=== PATIENT | female | born 1945 | race Caucasian/White ===

== ENCOUNTER 2021-05-06 07:24 | Outpatient (CLI) | payer MEDICARE, SELFPAY ==
--- NOTE | 2021-06-04 16:13 | WPDSLEEPSTUD ---
Sleep Study Date of Study: 05/06/21 Ordering Provider: Ambrocio Manning DO Interpreting Physician: Orly Amor MD Sleep Study Type: CPAP Titration Height: 1.57 m Weight: 120.656 kg Body Mass Index: 48.6 Neck Circumference (inches): 17 [place]: 5 Reason for Sleep Study * known FREIDA, has used CPAP without improvement; presents for re-titration * 03/28/2012; BMI was 39. Split night sleep study with severe obstructive sleep apnea with an apnea-hypopnea index 34.7, lowest saturation 82%, only 1 central apnea; optimal pressure was 9 cm. She had limb movement index of 95.6. Sleep History Vandana Ervin is a 75 year old female with a stroke in Oct 2010. Her urologist told her that sleep apnea was causing her urinary symptoms, and she needs re-evaluation. She had a split night study in 2011, and CPAP 9 cm was optimal. Apparently, she has used CPAP 9 cm since without feeling that the pressure is high enough. She wakes frequently at night, never feels rested on waking. She does not wake at night feeling short of breath, wake with heartburn symptoms such as belching or coughing. She denies snoring, and others do not tell her that she snores loudly. She frequently has trouble sleeping with a cold. She does not gasp for breath at night. She frequently sweats excessively at night. She does not have palpitations at night. She constantly falls asleep in the day, never involuntarily and never while driving. She does not have loss of muscle strength with strong emotion. She does not have daytime difficulty due to excessive sleepiness. She does not feel paralyzed on waking or falling asleep. She does not have vivid dreamlike scenes on waking or falling asleep. She is not afraid to go to sleep. She does not have nightmares. She does not remember her dreams. She occasionally has racing thoughts, feelings of depression, anxiety, and muscular tension.She does not notice parts of her body jerking. He does not kick at night or have achy and crawly feelings in her legs. She does not have leg pain at night, does not grind her teeth at night or wake with morning jaw pain. She occasionally is bothered by pain the day, never wakes due to pain at night. She occasionally wakes up feeling stiff in the morning with sore muscles, never wakes with spine pain. She has fatigue, depression, headaches, and takes antacids regularly. Normal bedtime is 10:00 p.m., falling asleep within 15 to 30 minutes, She wakes between 5 to 7 times during the night to urinate, and returns to sleep within if 5 minutes. 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 Wake up time is 11:00 a.m.. She takes naps in the afternoon or evening, but does not feel refreshed after a nap. She is drowsy for 3 hours after waking. Habits: Never smoker. Caffeine; 2 cups a day. No alcohol or recreational drugs. [facility] Past Medical History Medical History (Updated 06/04/21 @ 18:53 by Orly Amor MD) Anemia CVA (cerebrovascular accident) Depression Essential (primary) hypertension Hyperlipidemia Hypothyroidism FREIDA (obstructive sleep apnea) Seizures Type 2 diabetes mellitus without complications Family History Family History Father Acute myocardial infarction, Onset Age: 585 Patient's father is Mother Patient's mother is Grandparent Cerebrovascular accident Diabetes mellitus Sibling Patient's sister is in good health Patient's brother is in good health Patient's brother is Acute myocardial infarction Other Family history of cardiovascular disease Family history of congestive heart failure Hypertension Social History Social History Smoking status: Never smoker Second hand tobacco smoke exposure: Yes Alcohol intake: never Substance use: never
[2021-06-04 16:14] VITALS: BMI 48.6
== END 2021-05-07 07:01 | disposition home or self-care (01) ==
LOC: ANHCSM 07:24
PROVIDERS: PCP Internal Medicine; Visit Provider Internal Medicine
DX: G47.33 Obstructive sleep apnea (adult) (pediatric) (principal)
CPT/HCPCS: 95811

== ENCOUNTER 2021-05-18 09:54 | Outpatient (CLI) | payer MEDICARE, SELFPAY ==
--- NOTE | 2021-05-18 12:00 | NEURO_ITS ---
Impression: # Complains of increasing numbness and weakness in lower extremities. # Normal nerve conduction study with need for increasing strength for stimulation. # Needle/EMG exam revealed decreased motor unit potentials but no active denervation. # Clinical correlation recommended. Nerve Conduction Studies Anti Sensory Summary Table Stim Site NR Peak (ms) P-T Amp (?V) Site1 Site2 Delta-P (ms) Dist (cm) Matthew (m/s) Left Sup Fibular Anti Sensory (Ant Lat Mall) NO RESPONSE 14 cm NR 14 cm Ant Lat Mall 16.0 Right Sup Fibular Anti Sensory (Ant Lat Mall) 14 cm 3.3 31.4 14 cm Ant Lat Mall 3.3 16.0 48 Left Sural Anti Sensory (Lat Mall) Calf 4.4 1.2 Calf Lat Mall 4.4 16.0 36 Right Sural Anti Sensory (Lat Mall) Calf 3.5 4.1 Calf Lat Mall 3.5 16.0 46 Motor Summary Table Stim Site NR Onset (ms) O-P Amp (mV) Site1 Site2 Delta-0 (ms) Dist (cm) Matthew (m/s) Left Peroneal Motor (Vastus Med) Ankle 4.4 1.8 Popit Ankle 8.0 37.0 46 Popit 12.4 1.8 Right Peroneal Motor (Vastus Med) Ankle 4.5 1.3 Popit Ankle 7.8 37.0 47 Popit 12.3 1.4 Left Tibial Motor (Abd Moraes Brev) Ankle 4.2 2.5 Knee Ankle 9.5 40.0 42 Knee 13.7 1.3 Right Tibial Motor (Abd Moraes Brev) Ankle 4.4 5.2 Knee Ankle 8.9 40.0 45 Knee 13.3 3.4 F Wave Studies NR F-Lat (ms) L-R F-Lat (ms) Left Peroneal (Mrkrs) (EDB) 49.77 1.86 Right Peroneal (Mrkrs) (EDB) 51.63 1.86 Left Tibial (Mrkrs) (Abd Hallucis) 49.94 2.22 Right Tibial (Mrkrs) (Abd Hallucis) 52.16 2.22 EMG Side Muscle Nerve Root Ins Act Fibs Amp Dur Recrt Comment Right AntTibialis Dp Br Fibular L4-5 Nml Nml Nml Nml Reduced Right Gastroc Tibial S1-2 Nml Nml Nml Nml Reduced Right Fibularis Long Sup Br Fibular L5-S1 Nml Nml Nml Nml Reduced Right Flex Dig Long Tibial L5-S2 Nml Nml Nml Nml Reduced Right Ext Dig Brev Dp Br Fibular L5, S1 Nml Nml Nml Nml Reduced Left AntTibialis Dp Br Fibular L4-5 Nml Nml Nml Nml Reduced Left Gastroc Tibial S1-2 Nml Nml Nml Nml Reduced Left Fibularis Long Sup Br Fibular L5-S1 Nml Nml Nml Nml Reduced Left Flex Dig Long Tibial L5-S2 Nml Nml Nml Nml Reduced Left Ext Dig Brev Dp Br Fibular L5, S1 Nml Nml Nml Nml Reduced MTDD
== END 2021-05-18 09:55 | disposition home or self-care (01) ==
LOC: ANHNEURO 09:56
PROVIDERS: PCP Internal Medicine; Visit Provider Internal Medicine
DX: R20.0 Anesthesia of skin (principal); R20.2 Paresthesia of skin; M79.671 Pain in right foot; M79.672 Pain in left foot
CPT/HCPCS: 95886; 95910; 95911

== ENCOUNTER 2024-09-03 06:58 | Observation (INO) | payer MEDICARE, SELFPAY ==
[2024-09-03] VITALS (24 sets, daily range): BP systolic 131–174; BP diastolic 52–88; PULSE 62–86; RESP 16–25; TEMP 36.6–36.9; O2SAT 90–99; BMI 43.4
--- NOTE | ~2024-09-03 | XR_ITS ---
Portable chest x-ray Comparison: 07/16/2013 Clinical History: Shortness of breath Findings: Possible minimal bibasilar pulmonary edema. Cardiomediastinal silhouette is stable. Bones and soft tissues are unremarkable. Impression: Possible minimal bibasilar pulmonary edema. Reviewed, dictated and finalized at [facility]. 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
--- NOTE | ~2024-09-03 | CT_ITS ---
CT head without contrast Indication: Status post fall Technique: Serial scans were obtained through the brain without the administration of contrast. Dose reduction technique was used on this scan by utilizing automated exposure control and iterative recon struction technique. The dose-length product (DLP) was 605.33 mGy-cm. Findings: There is no evidence of intracranial hemorrhage, mass lesion, or acute infarct. Extensive c hronic right frontal lobe encephalomalacia present, with ex vacuo dilatation of the frontal horn righ t lateral ventricle. The ventricles and subarachnoid spaces are dilated, consistent with mild to mode rate atrophy. Low attenuation regions are seen within the periventricular white matter bilaterally, likely representing changes from chronic microvascular ischemic disease. There is no evidence of linda a, mass effect or midline shift. The visualized paranasal sinuses and mastoid air cells are clear. Right frontal craniotomy noted. Impression: No intracranial hemorrhage, mass, or acute infarct. Extensive chronic right frontal lobe encephalomalacia. Atrophy and chronic white matter changes, as above. Reviewed, dictated and finalized at location . ERVATION AGENT Impression: No intracranial hemorrhage, mass, or acute infarct. Extensive chronic right frontal lobe encephalomalacia. Atrophy and chronic white matter changes, as above.
--- NOTE | ~2024-09-03 | CT_ITS ---
Noncontrast CT scan of the cervical spine Technique: Multiple contiguous axial [address] images of the cervical spine were obtained and rec onstructed in 2D sagittal and coronal planes on the acquisition scanner. Dose reduction technique was used on this scan by utilizing automated exposure control, adjustment of the mA and/or kV according to patient size. The dose-length product (DLP) was 503.10 mGy-cm. Clinical History: Pain Findings: No fractures or dislocations. There is mild reversal of the normal cervical lordosis. Ther e is severe degenerative disc narrowing at C4-C5, C5-C6 and C6-C7. There is extensive, severe facet a rthropathy. There are probable fusion of the right C3-C4 facet joint. There is probable left neural f oraminal narrowing at C4-C5. There is advanced bilateral neural foraminal narrowing at C5-C6. There i s moderate canal stenosis at this level with disc osteophyte complex. There is advanced bilateral suleman ral foraminal narrowing at C6-C7, moderate to severe canal stenosis and associated disc osteophyte co mplex. No prevertebral soft tissue swelling. Impression: No fracture or subluxation of the cervical spine. Severe degenerative spondylosis at C5-C6 and C6-C7, moderate to severe canal stenosis and severe bila teral neural foraminal narrowing at these levels. Additional degenerative changes, as above. Reviewed, dictated and finalized at [facility]. 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 Severe degenerative spondylosis at C5-C6 and C6-C7, moderate to severe canal st enosis and severe bilateral neural foraminal narrowing at these levels. Additional degenerative changes, as above.
--- NOTE | 2024-09-03 07:29 | ECG_ITS ---
Test Date: 2024-09-03 08:02:44 Measurements Intervals [place] Rate: 66 P: -80 DE: 130 QRS: -2 QRSD: 101 T: 104 QT: 392 QTc: 413 Interpretive Statements SINUS RHYTHM WITH OCCASIONAL SUPRAVENTRICULAR PREMATURE COMPLEXES NONSPECIFIC ST & T-WAVE ABNORMALITY No previous ECG available for comparison Electronically Signed On 09-03-2024 14:40:53 TRANSFER STATION ATTENDANT by Koki Slater M.D.
[2024-09-03 08:30] LABS: Basophils Percent Auto 0.3 % (0.2-1.2); Eosinophils Absolute Auto 0.2 K/mm3 (0-0.3); Eosinophils Percent Auto 1.9 % (0-4.4); Hematocrit 31.1 % (37.0-47.0); Hemoglobin 9.7 g/dL (12.0-15.0); Immature Granulocyte Absolute 0.06 K/mm3 (0.00-0.031); Immature Granulocyte Percent A 0.6 % (0-0.5); Lymphocytes Absolute Auto 1.07 K/mm3 (0.9-3.2); Lymphocytes Percent Auto 11.3 % (18.3-44.2); Mean Corpuscular HGB Conc 31.2 g/dl (32-36); Mean Corpuscular Hemoglobin 31.1 pg (26-34); Mean Corpuscular Volume 99.7 fl (80-100); Mean Platelet Volume 10.8 fl (7.4-10.4); Monocytes Absolute Auto 0.6 K/mm3 (0.1-0.6); Monocytes Percent Auto 6.4 % (2.6-8.5); Neutrophils Absolute Auto 7.5 K/mm3 (1.3-6.7); Neutrophils Percent Auto 79.5 % (45.5-73.1); Platelet Count Result 269 k/mm3 (150-375); Red Blood Count 3.12 M/mm3 (4.2-5.4); Red Cell Distribution Width 14.5 % (11.5-14.5); White Blood Count 9.5 K/mm3 (4.5-10.0)
[2024-09-03 08:37] LABS: Add Urine Microscopic? YES; Appearance Urine Clear (Clear); Bacteria Urine 4+ /hpf; Bilirubin Urine Negative (Negative); Blood Urine Negative (Negative); Color Urine Yellow (Yellow); Glucose Urine UA Negative (Negative); Ketones Urine Negative (Negative); Leukocyte Esterase Ur Trace LEU/UL (Negative); Nitrate Urine Negative (Negative); Non Pathogenic Casts 0-2; Protein Urine Negative (Negative); RBC Urine 0-2 /hpf (0-2); Specific Grav Ur 1.021 (1.001-1.035); Squamous Epithelial Cell Urine None Seen /hpf (Few); Urobilinogen Urine 0.2 mg/dL (<2.0); WBC Urine 0-5 /hpf (0-3)
[2024-09-03 08:40] LABS: Lactic Acid Reflex 1.5 mmol/L (0.7-2.0)
[2024-09-03 08:41] LABS: Alanine Aminotransferase 10 U/L (6-35); Albumin Level 4.1 g/dL (3.5-5.1); Alkaline Phosphatase 82 U/L (38-126); Anion Gap 9 mmol/L (4-12); Aspartate Amino Transferase 18 U/L (14-36); Bilirubin,Total 0.4 mg/dL (0.2-1.3); Blood Urea Nitrogen 26 mg/dL (7-17); Calcium 9.2 mg/dL (8.4-10.2); Carbon Dioxide 22 mmol/L (22-30); Chloride 109 mmol/L (98-107); Estimated CRCL calculation 55 ml/min; Estimated Glomerular Filt Rate 60; Glucose 157 mg/dL (65-110); Potassium 4.5 mmol/L (3.4-5.0); Sodium 140 mmol/L (137-145)
[2024-09-03 08:45] LABS: Prothrombin Time 13.3 Seconds (11.1-14.7)
[2024-09-03 08:53] LABS: NT Pro B Type Natriuretic Pept 1120 pg/mL (19.9-100); Troponin I < 0.012 ng/mL (0.000-0.034)
--- NOTE | 2024-09-03 09:14 | ED_ITS ---
HPI - Weakness General Chief complaint: Weakness Stated complaint: lower ext weakness Time Seen by Provider: 09/03/24 07:05 Source: patient and family Mode of arrival: EMS Limitations: no limitations History of Present Illness HPI Narrative: 79-year-old with a history of hypertension hyperlipidemia, diabetes, arthritis, CVA was brought in from home with the complaints of multiple falls since yesterday. states that she is unable to bear weight on her lower extremities. She fell last night and was unable to get up or with the help she was able to get to her bed. No LOC. She denies any chest pain or shortness of breath. 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 Has multiple devices but now unable to to take care of her. Wants her to be placed in a rehab center. Complaint: difficulty walking Onset (ago): day(s) (1) Duration: constant Severity: moderate Associated symptoms: denies other symptoms Related Data Home Medications ?Medication ?Instructions ?Recorded ?Confirmed ?Last Taken ?Type fexofenadine 180 mg tablet 180 mg PO DAILY 10/07/19 09/03/24 Unknown History (Yuly Allergy) levetiracetam 500 mg tablet 500 mg PO Q12H 10/07/19 09/03/24 Unknown History mecobalamin (vitamin B12) 5,000 5,000 mcg PO 2XW 10/07/19 09/03/24 Unknown History mcg disintegrating tablet thiamine HCl (vitamin B1) 100 mg 100 mg PO DAILY 10/07/19 09/03/24 Unknown History tablet sitagliptin phosphate 100 mg 100 mg PO DAILY 10/08/19 09/03/24 Unknown History tablet (Januvia) exenatide microspheres 2 mg/0.85 2 mg subcut WEEKLY 04/02/20 09/03/24 Unknown History mL subcutaneous auto-injector (BydureND Acquisitionsse) bupropion HCl 75 mg tablet 75 mg PO BID 04/13/21 09/03/24 Unknown History sertraline 100 mg tablet 150 mg PO DAILY 09/03/24 09/03/24 Unknown History trospium 20 mg tablet 20 mg PO BID 09/03/24 09/03/24 Unknown History Allergies Allergy/AdvReac Type Severity Reaction Status Date / Time iodine Allergy Mild Dizziness Verified 09/03/24 07:10 shellfish derived Allergy Mild dizziness Verified 09/03/24 07:10 and weakness hydromorphone (From Dilaudid) Allergy Unknown Headache Verified 09/03/24 07:10 latex Allergy Unknown Rash Verified 09/03/24 07:10 Review of Systems 2 Constitutional: Constitutional: Reports no additional constitutional complaints Eyes: Eyes: Reports no additional eye complaints ENT: Reports system reviewed and no additional complaints, except as documented Cardiovascular: Cardiovascular: Reports no additional cardiovascular complaints Respiratory: Respiratory: Reports no additional respiratory complaints Gastrointestinal: Gastrointestinal: Reports no additional gastrointestinal complaints Musculoskeletal: Musculoskeletal: Reports as per HPI Neurologic: Reports system reviewed and no additional complaints, except as documented [facility] Past Medical History Medical History Arthritis CVA (cerebrovascular accident) 2010 Depression Essential (primary) hypertension History of blood transfusion 2010, x2 Hyperlipidemia Hypothyroidism FREIDA (obstructive sleep apnea) Seizures one since she had stroke Type 2 diabetes mellitus without complications Vaginal delivery x3 Surgical History Surgical History History of bladder surgery 1986 History of brain surgery 2010, x2 History of hysterectomy Family History Family History Father Acute myocardial infarction, Onset Age: 585 Patient's father is Hypertension Heart disease Mother Patient's mother is Hypertension Heart disease Grandparent Cerebrovascular accident Diabetes mellitus Sibling Patient's brother is in good health Patient's brother is Acute myocardial infarction Patient's sister is in good health Heart disease Other Family history of cardiovascular disease Family history of congestive heart failure Social History Social History Smoking status: Never smoker Second hand tobacco smoke exposure: Yes Alcohol intake: never Substance use: never Lack of Transportation: No Lack of Food: Never True Current Housing: I Have Housing Concerned About Future Housing: No Difficulty Paying Gas/Electric Bills: No Difficulty Paying for Meds: No Currently Unemployed: No Education: Bachelor's Degree Difficulty w/ Childcare or Family Care: No Agree to blood products: Yes Exam 2 Narrative: GENERAL: Well-appearing, Obese , and in no acute distress. HEAD: Normocephalic, atraumatic. EYES: PERRLA and EOMI. ENT: Nares clear, no rhinorrhea or epistaxis. Mucous membranes moist. NECK: Supple. CHEST: Clear to auscultation. No respiratory distress. HEART: Regular rate and rhythm. No murmur heard. Normal peripheral pulses. ABDOMEN: Soft, nontender, nondistended, normal active bowel sounds. EXTREMITIES: Normal range of motion. No edema. SKIN: Warm, dry, no rash. NEURO: No focal deficits. Alert and oriented x3. PSYCH: Normal mood and affect. Course Course Emergency Course: Patient resting on the bed in no discomfort. Informed about her lab work, CT findings. Consulted case management regarding her placement to a rehab center. Vital Signs Vital signs: Vital Signs Temperature 36.6 C 09/03/24 06:59 Pulse Rate 65 09/03/24 06:59 Respiratory Rate 23 H 09/03/24 06:59 Blood Pressure 163/60 H 09/03/24 06:59 Pulse Oximetry 91 09/03/24 06:59 Oxygen Delivery Room Air 09/03/24 06:59 Temperature 36.6 C 09/03/24 06:59 Pulse Rate 78 09/03/24 08:29 Respiratory Rate 23 H 09/03/24 06:59 Blood Pressure 163/60 H 09/03/24 06:59 Pulse Oximetry 91 09/03/24 06:59 Oxygen Delivery Room Air 09/03/24 06:59 MDM - Weakness Differential Diagnosis Differential diagnosis: Likely dehydration and other (Diabetic neuropathy, physical deconditioning) Medical Records Attestation: I reviewed the patient's medical records. Lab Data Attestation: I reviewed the patient's lab results. 09/03/24 08:20 09/03/24 08:20 Labs: Lab Results 09/03/24 Range/Units 08:20 WBC 9.5 (4.5-10.0) K/mm3 RBC 3.12 L (4.2-5.4) M/mm3 Hgb 9.7 L (12.0-15.0) g/dL Hct 31.1 L (37.0-47.0) % MCV 99.7 (80-100) fl MCH 31.1 (26-34) pg MCHC 31.2 L (32-36) g/dl RDW 14.5 (11.5-14.5) % Plt Count 269 (150-375) k/mm3 MPV 10.8 H (7.4-10.4) fl Immature Gran % (Auto) 0.6 H (0-0.5) % Neut % (Auto) 79.5 H (45.5-73.1) % Lymph % (Auto) 11.3 L (18.3-44.2) % Mower % (Auto) 6.4 (2.6-8.5) % Eos % (Auto) 1.9 (0-4.4) % Baso % (Auto) 0.3 (0.2-1.2) % Lymph # (Auto) 1.07 (0.9-3.2) K/mm3 Mower # (Auto) 0.6 (0.1-0.6) K/mm3 Eos # (Auto) 0.2 (0-0.3) K/mm3 Baso # (Auto) 0.0 (0.0-0.1) K/mm3 Abs Immat Gran (auto) 0.06 H (0.00-0.031) K/mm3 Absolute Neuts (auto) 7.5 H (1.3-6.7) K/mm3 Absolute Nucleated RBC 0.000 (0.0-0.012) K/mm3 Nucleated RBC % 0.0 (0.0-0.2) % PT 13.3 (11.1-14.7) Seconds INR 1.0 Sodium 140 (137-145) mmol/L Potassium 4.5 (3.4-5.0) mmol/L Chloride 109 H (98-107) mmol/L Carbon Dioxide 22 (22-30) mmol/L Anion Gap 9 (4-12) mmol/L BUN 26 H (7-17) mg/dL Creatinine 0.90 (0.7-1.0) mg/dL Estim Creat Clear Calc 55 ml/min Estimated GFR 60 (59 - ) Glucose 157 H (65-110) mg/dL Lactic Acid 1.5 (0.7-2.0) mmol/L Calcium 9.2 (8.4-10.2) mg/dL Total Bilirubin 0.4 (0.2-1.3) mg/dL AST 18 (14-36) U/L ALT 10 (6-35) U/L Alkaline Phosphatase 82 (38-126) U/L Troponin I < 0.012 (0.000-0.034) ng/mL NT-Pro-B Natriuret Pep 1120 H (19.9-100) pg/mL Total Protein 7.0 (6.3-8.2) g/dL Albumin 4.1 (3.5-5.1) g/dL Urine Color Yellow (Yellow) Urine Appearance Clear (Clear) Urine pH 5.0 (5.0-9.0) Ur Specific [place] 1.021 (1.001-1.035) Urine Protein Negative (Negative) mg/dL Urine Glucose (UA) Negative (Negative) mg/dL Urine Ketones Negative (Negative) mg/dL Ur Blood (Man) Negative (Negative) Urine Nitrate Negative (Negative) Urine Bilirubin Negative (Negative) Urine Urobilinogen 0.2 (<2.0) mg/dL Leukocyte Esterase Rfl Trace H (Negative) MIRANDA/UL Urine RBC 0-2 (0-2) /hpf Urine WBC 0-5 (0-3) /hpf Ur Squamous Epith Cells None seen (Few) /hpf Urine Bacteria 4+ H /hpf Urine Casts 0-2 Imaging Data Radiologist's impression: ITS Impressions Cervical Spine CT 09/03/24 07:55 Impression: No fracture or subluxation of the cervical spine. Severe degenerative spondylosis at C5-C6 and C6-C7, moderate to severe canal stenosis and severe bilateral neural foraminal narrowing at these levels. Additional degenerative changes, as above. Head CT 09/03/24 07:57 Impression: No intracranial hemorrhage, mass, or acute infarct. Extensive chronic right frontal lobe encephalomalacia. Atrophy and chronic white matter changes, as above. Chest X-Ray 09/03/24 07:58 Impression: Possible minimal bibasilar pulmonary edema. ECG Data EKG #1: ECG completion date: 09/03/24 ECG completion time: 08:02 EKG Interpretation: normal rate (66), sinus rhythm, normal QRS, normal QT and NL axis Discharge Plan Discharge Clinical Impression: Lower extremity weakness, Frequent falls Condition: Stable Patient Language: Luxembourgish Prescriptions: No Action thiamine HCl (vitamin B1) 100 mg tablet 100 mg PO DAILY levetiracetam 500 mg tablet 500 mg PO Q12H fexofenadine [Yuly Allergy] 180 mg tablet 180 mg PO DAILY mecobalamin (vitamin B12) 5,000 mcg tablet,disintegrating 5,000 mcg PO 2XW Januvia 100 mg tablet 100 mg PO DAILY Bydureon BCise 2 mg/0.85 mL auto-injector 2 mg SUB-Q WEEKLY bupropion HCl 75 mg tablet 75 mg PO BID sertraline 100 mg tablet 150 mg PO DAILY trospium 20 mg tablet 20 mg PO BID pravastatin 10 mg tablet 10 mg PO DAILY Qty: 90 3RF ferrous sulfate 325 mg (65 mg iron) tablet 325 mg PO BID Qty: 180 1RF gemfibrozil 600 mg tablet 600 mg PO BID Qty: 180 3RF levothyroxine 137 mcg tablet 137 mcg PO DAILY Qty: 90 3RF metoprolol tartrate 50 mg tablet 50 mg PO Q12H Qty: 180 3RF omeprazole 20 mg capsule,delayed release(DR/EC) 20 mg PO DAILY Qty: 90 3RF olmesartan 40 mg tablet 40 mg PO DAILY Qty: 90 3RF metformin 500 mg tablet 500 mg PO BID Qty: 180 3RF folic acid 1 mg tablet 1 mg PO DAILY Qty: 90 3RF ergocalciferol (vitamin D2) 1,250 mcg (50,000 unit) capsule 50,000 unit PO .every two weeks Qty: 6 2RF Follow-up/Referrals: Preston Goetz DO [Primary Care Provider] -
--- NOTE | 2024-09-03 09:50 | PCCCNOTE ---
Called to the ED for placement. Pt is having multiple falls and is unable to care for her. They wanted TONIA, however there is no medical need. Referrals sent to [facility], [facility], and [facility]. Awaiting for responses.
--- NOTE | 2024-09-03 11:48 | PCCCNOTE ---
[facility] does not have any beds, I left a message with Arslan at [place], awaiting return call, and Rand at [facility] is waiting for the PT/OT eval to be done, will not have a bed until Sunday the . Pt and family updated.
[2024-09-03] MEDS: LEVOTHYROXINE SODIUM 112 MCG, LEVOTHYROXINE SODIUM 25 MCG 137 MCG PO (14:38)
[2024-09-03] MEDS: levETIRAcetam 500 MG TABLET PO (14:38)
[2024-09-03] MEDS: SITagliptin PHOSPHATE 100 MG TABLET PO (14:38)
[2024-09-03] MEDS: PRAVASTATIN SODIUM 20 MG TABLET 40 MG PO (14:38)
[2024-09-03] MEDS: OLMESARTAN MEDOXOMIL 20 MG TABLET 40 MG PO (14:39)
[2024-09-03] MEDS: buPROPion HCL SR (12 HR) 150 MG TAB PO (14:39)
[2024-09-03] MEDS: METOPROLOL TARTRATE 50 MG TAB PO (14:39)
[2024-09-03] MEDS: metFORMIN HCL 500 MG TABLET PO (14:39)
--- NOTE | 2024-09-03 16:49 | PCCCNOTE ---
Received a call back from Dani from [facility], they have no beds. Rand, from [facility] called back and said that weakness was not a skillable diagnosis. Pt will be admitted for placement.
--- NOTE | 2024-09-03 17:31 | PCCCNOTE ---
PASRR completed, No level ll required.
--- NOTE | 2024-09-03 17:54 | PC.NURSE ---
Pt offered lunch and dinner and declined both
--- NOTE | 2024-09-03 18:32 | ADMGEN ---
This patient, Vandana Ervin, was admitted to Medical Room 341-01. Patient/family oriented to hospital policies and general routines including ID bracelet, bed and alarms, visiting hours, pain management, procedures, bathroom and other care routines, personal items, smoking policy, room service/diet, and visiting hours. Information on how to activate the Rapid Response Team has been discussed. Patient/Family are encouraged to report perceived risks to care and to ask questions if they do not understand what they are told or what they should do.
[2024-09-03 21:13] LABS: Glucose Point of Care 157 mg/dl (65-105)
--- NOTE | 2024-09-04 | ECHO_ITS ---
Patient Info Name: Vandana Ervin Age: 79 years : 1945 Gender: Female Ht: 63 in Wt: 245 lbs BSA: 2.29 m2 HR: 82 bpm BP: 168 / 73 mmHg Heart Rhythm: Sinus Rhythm Technical Quality: Fair Exam Date: 09/04/2024 2:18 PM Exam Location: Echo Lab Patient Status: Inpatient Admit Date: 09/03/2024 Staff Ordering Physician: Cayla Yarbrough APRN Elevator Mechanic: Luis Weber RDCS Attending Provider: Cayla Yarbrough APRN Referring Physician: Zenon LEON; Exam Type: CA echo doppler color flow Study Info Indications R06.02 - Shortness of breath J81.1 - Chronic pulmonary edema Complete two-dimensional, color flow and Doppler transthoracic echocardiogram is performed. Summary 1. Complete two-dimensional, color flow and Doppler transthoracic echocardiogram is performed. 2. Left ventricular chamber dimension is normal. 3. Left ventricular systolic function is normal, estimated at 65-70%. 4. There is mildly increased left ventricular wall thickness. 5. The left ventricular diastolic function is grade I diastolic dysfunction. 6. Left atrial chamber dimension is moderately enlarged. 7. There is mild aortic valve calcification. 8. There is mild aortic valve regurgitation. 9. There is mild mitral valve regurgitation. 10. There is mild tricuspid valve regurgitation. 11. There is mild pulmonic regurgitation. Left Ventricle Left ventricular chamber dimension is normal. Left ventricular systolic function is normal, estimated at 65-70%. There is mildly increased left ventricular wall thickness. The left ventricular diastolic function is grade I diastolic dysfunction. Right Ventricle Right ventricular chamber dimension is normal. Right ventricular systolic function is normal. Left Atria Left atrial chamber dimension is moderately enlarged. Right Atria Right atrial chamber dimension is normal. Atrial Septum Intact interatrial septum visualized by color flow imaging. Aortic Valve The aortic valve is trileaflet. There is mild aortic valve sclerosis. There is no aortic valve stenosis. There is mild aortic valve regurgitation. There is mild aortic valve calcification. Pulmonic Valve The pulmonic valve is normal. There is no pulmonic valve stenosis. There is mild pulmonic regurgitation. Mitral Valve The mitral valve has calcified annulus. There is no mitral valve stenosis. There is mild mitral valve regurgitation. Tricuspid Valve The tricuspid valve leaflets are normal. There is no significant tricuspid valve stenosis. There is mild tricuspid valve regurgitation. No pulmonary hypertension, estimated pulmonary arterial systolic pressure is 28 mmHg. Pericardium/Pleural The pericardium appears normal. There is no pericardial effusion. Inferior Vena Cava Normal inferior vena cava with >50% collapse upon inspiration consistent with normal right atrial pressure, 5 mmHg. Aorta The aortic root size at the sinus of Valsalva is normal. Left Ventricular Outflow Tract Name Value Normal LVOT 2D LVOT Diameter 2.0 cm LVOT Doppler LVOT Peak Gradient 5 mmHg LVOT Mean Gradient 2 mmHg LVOT VTI 23 cm LVOT VTI/AV VTI Ratio 0.7 LVOT Stroke Volume 72 ml LVOT CO 5.4 l/min LVOT CI 2.4 l/min/m2 Pulmonic Valve Name Value Normal PV Doppler PV Peak Gradient 6 mmHg Mitral Valve Name Value Normal MV Doppler MV Decel Callahan 422 cm/s2 MV PHT 60 ms MV Area (PHT) 3.7 cm2 4.0-5.0 MV Diastolic Function MV E Peak Velocity 88 cm/s MV A Peak Velocity 108 cm/s MV E/A 0.8 MV Decel Time 207 ms Tricuspid Valve Name Value Normal TV Regurgitation Doppler TR Peak Velocity 240 cm/s TR Peak Gradient 23 mmHg Estimated PAP/RSVP RA Pressure 5 mmHg <=5 PA Systolic Pressure 28 mmHg <36 RV Systolic Pressure 28 mmHg <36 Aorta Name Value Normal Ascending Aorta Ao Root Diameter (MM) 2.3 cm Ao Root Diam Index (MM) 1.0 cm/m2 Aortic Valve Name Value Normal AV Doppler AV Peak Velocity 181 cm/s AV Peak Gradient 13 mmHg AV Mean Gradient 7 mmHg AV VTI 34 cm AV Area (Cont Eq VTI) 2.1 cm2 >=3.0 AV Area (Cont Eq Matthew) 1.9 cm2 AV Regurgitation 2D LVOT Area 3.1 cm2 AV Regurgitation Doppler AR Decel Time 1,548 ms AR Decel Callahan 229 cm/s2 AR PHT 449 ms Ventricles Name Value Normal LV Dimensions 2D/MM IVS Diastolic Thickness (2D) 1.1 cm 0.6-1.0 IVS Diastole Thickness (MM) 1.1 cm 0.6-0.9 LVID Diastole (2D) 4.9 cm 3.8-5.2 LVID Diastole (MM) 5.2 cm 3.8-5.2 LVIW Diastolic Thickness (2D) 1.2 cm 0.6-0.9 LVIW Diastolic Thickness (MM) 1.2 cm 0.6-0.9 LVID Systole (2D) 3.2 cm 2.2-3.5 LVID Systole (MM) 3.1 cm 2.2-3.5 LVOT Diameter 2.0 cm LV Mass (2D Cubed) 212.41 g 67.00-162.00 LV Mass Index (2D Cubed) 93 g/m2 43-95 Relative Wall Thickness (2D) 0.49 LV Mass (MM Cubed) 229.21 g 67.00-162.00 LV Mass Index (MM Cubed) 100 g/m2 43-95 Relative Wall Thickness (MM) 0.46 LV Fractional Shortening/Ejection Fraction 2D/MM LV Fractional Shortening (2D) 35 % 27-45 LV Fractional Shortening (MM) 41 % 27-45 LV EF (MM Teicholz) 71 % 54-74 LV EF (2D Teicholz) 63 % 54-74 LV Diastolic Volume (4C MOD) 79 ml LV EF (4C MOD) 66 % LV Diastolic Volume (2C MOD) 63 ml LV EF (2C MOD) 70 % LV Diastolic Volume (BP MOD) 71 ml 46-106 LV Diastolic Volume Index (BP MOD) 31 ml/m2 29-61 LV Systolic Volume (BP MOD) 24 ml 14-42 LV Systolic Volume Index (BP MOD) 10 ml/m2 8-24 LV EF (BP MOD) 66 % 54-74 LV Diastolic Length (4C) 7.4 cm LV Systolic Length (4C) 5.3 cm LV Stroke Volume (4C MOD) 53 ml Atria Name Value Normal LA Dimensions LA Dimension (MM) 4.7 cm 2.7-3.8 LA Volume (4C A-L) 73 ml LA Volume (BP A-L) 64 ml RA Dimensions RA Area (4C) 14.3 cm2 <=18.0 Report Signatures
[2024-09-04 02:49] VITALS: PULSE 82; RESP 21
--- NOTE | 2024-09-04 05:55 | PM.IMHP ---
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 Surgical History Surgical History History of bladder surgery 1986 History of brain surgery 2010, x2 History of hysterectomy Family History Family History (Updated 09/03/24 @ 18:33 by Sandra Rudd RN) Father Acute myocardial infarction Heart disease Patient's father is Hypertension Mother Heart disease Patient's mother is Hypertension Grandparent Diabetes mellitus Cerebrovascular accident Sibling Acute myocardial infarction Heart disease Patient's brother is in good health Patient's brother is Patient's sister is in good health Other Family history of cardiovascular disease Family history of congestive heart failure Social History Social History Smoking status: Never smoker Second hand tobacco smoke exposure: Yes Alcohol intake: never Substance use: never Do You Feel Safe in your Home?: Yes Lack of Transportation: No Lack of Food: Never True Current Housing: I Have Housing Concerned About Future Housing: No Difficulty Paying Gas/Electric Bills: No Difficulty Paying for Meds: No Currently Unemployed: No Education: Bachelor's Degree Difficulty w/ Childcare or Family Care: No Spiritual care concerns: No Agree to blood products: Yes Meds Home Medications and Allergies Home Medications ?Medication ?Instructions ?Recorded ?Confirmed ?Type fexofenadine 180 mg tablet 180 mg PO DAILY 10/07/19 09/03/24 History ([place] Allergy) levetiracetam 500 mg tablet 500 mg PO DAILY 10/07/19 09/03/24 History mecobalamin (vitamin B12) 5,000 5,000 mcg PO 3XW 10/07/19 09/03/24 History mcg disintegrating tablet thiamine HCl (vitamin B1) 100 mg 100 mg PO DAILY 10/07/19 09/03/24 History tablet sitagliptin phosphate 100 mg 100 mg PO DAILY 10/08/19 09/03/24 History tablet (Januvia) exenatide microspheres 2 mg/0.85 2 mg subcut WEEKLY 04/02/20 09/03/24 History mL subcutaneous auto-injector (Rodriguez Blake) bupropion HCl 75 mg tablet 150 mg PO DAILY 04/13/21 09/03/24 History ferrous sulfate 325 mg (65 mg 325 mg PO BID #180 tabs 11/05/23 09/03/24 Rx iron) tablet gemfibrozil 600 mg tablet 600 mg PO BID #180 tabs 11/15/23 09/03/24 Rx levothyroxine 137 mcg tablet 137 mcg PO DAILY #90 tabs 11/17/23 09/03/24 Rx metoprolol tartrate 50 mg tablet 50 mg PO Q12H #180 tabs 12/17/23 09/03/24 Rx omeprazole 20 mg capsule,delayed 20 mg PO DAILY #90 caps 12/19/23 09/03/24 Rx release olmesartan 40 mg tablet 40 mg PO DAILY #90 tabs 01/07/24 09/03/24 Rx metformin 500 mg tablet 500 mg PO BID #180 tabs 01/13/24 09/03/24 Rx folic acid 1 mg tablet 1 mg PO DAILY #90 tabs 06/16/24 09/03/24 Rx ergocalciferol (vitamin D2) 1,250 5,000 mcg PO WEEKLY 09/03/24 09/03/24 History mcg (50,000 unit) capsule ibuprofen 200 mg tablet (Advil) 200 mg PO TID 09/03/24 09/03/24 History pravastatin 10 mg tablet 40 mg PO DAILY 09/03/24 09/03/24 History sertraline 100 mg tablet 150 mg PO DAILY 09/03/24 09/03/24 History trospium 20 mg tablet 20 mg PO BID 09/03/24 09/03/24 History Allergies Allergy/AdvReac Type Severity Reaction Status Date / Time latex Allergy Unknown Rash Verified 09/03/24 07:10 iodine AdvReac Mild Dizziness Verified 09/03/24 14:05 shellfish derived AdvReac Mild dizziness Verified 09/03/24 14:05 and weakness hydromorphone (From Dilaudid) AdvReac Unknown Headache Verified 09/03/24 14:05 Vital Signs Vital Signs - 24 hr 09/03/24 06:59 09/03/24 07:17 09/03/24 07:32 Temperature 97.9 F Pulse Rate 65 62 62 Respiratory Rate 23 H 20 20 Blood Pressure 163/60 H 142/57 H 141/66 H Pulse Oximetry 91 91 92 Oxygen Delivery Room Air 09/03/24 07:57 09/03/24 08:01 09/03/24 08:17 Temperature Pulse Rate 63 71 66 Respiratory Rate 22 H 19 17 Blood Pressure 159/64 H 165/75 H 156/52 H Pulse Oximetry 92 91 95 Oxygen Delivery 09/03/24 08:29 09/03/24 08:32 09/03/24 09:17 Temperature Pulse Rate 78 63 84 Respiratory Rate 20 18 Blood Pressure 156/61 H 153/59 H Pulse Oximetry 95 94 Oxygen Delivery 09/03/24 09:31 09/03/24 09:47 09/03/24 10:17 Temperature Pulse Rate 85 84 Respiratory Rate 18 22 H Blood Pressure 131/80 Pulse Oximetry 93 91 92 Oxygen Delivery 09/03/24 10:31 09/03/24 11:27 09/03/24 11:30 Temperature Pulse Rate 84 64 65 Respiratory Rate 25 H 18 25 H Blood Pressure 161/75 H Pulse Oximetry 92 90 91 Oxygen Delivery 09/03/24 11:32 09/03/24 12:31 09/03/24 12:45 Temperature Pulse Rate 63 84 Respiratory Rate 21 H 25 H Blood Pressure 150/68 H 174/88 H Pulse Oximetry 94 92 Oxygen Delivery Room Air 09/03/24 12:55 09/03/24 14:39 09/03/24 15:01 Temperature Pulse Rate 84 81 Respiratory Rate 22 H Blood Pressure 150/67 H Pulse Oximetry 90 Oxygen Delivery Room Air 09/03/24 16:01 09/03/24 16:21 09/03/24 17:31 Temperature Pulse Rate 80 80 78 Respiratory Rate 23 H 22 H 18 Blood Pressure 149/68 H 148/73 H Pulse Oximetry 99 Oxygen Delivery 09/03/24 20:00 09/03/24 21:24 09/04/24 02:49 Temperature 98.4 F Pulse Rate 78 86 82 Respiratory Rate 18 16 21 H Blood Pressure 149/65 H Pulse Oximetry 99 96 Oxygen Delivery Room Air Autopap Exam Narrative: Weight 111 0.2 kg BMI 43.4 Const: Other: Morbidly obese, no acute distress, debilitated HENMT: Other: Oral and facial exam limited due to presence of BiPAP, head is normocephalic atraumatic Eyes: Other: Pupils are equal and reactive, no scleral icterus, no conjunctival pallor Neck: Other: Large neck circumference, short neck, no obvious JVD but exam limited due to body habitus Resp: Other: Clear to auscultation bilaterally anterior lung christensen, posterior lung christensen not evaluated, no increased work of breathing Cardio: Other: Regular rate, regular rhythm, 2+ bilateral radial pedal pulses, no obvious murmur, no JVD GI: Other: Obese, soft, nontender, normoactive bowel sounds : Other: Incontinent of urine with pure wick in place Skin: Other: Mild pallor, non jaundice, normal temperature to touch Neuro: Other: Alert oriented x4 currently but nursing staff reported moments of confusion overnight, speech is clear, difficult to assess for facial asymmetry due to presence of BiPAP, speech is clear and fluent, patient has intermittent jerking of bilateral upper extremities left greater than right, no obvious fasciculations of the tongue, she reports intact sensation to all extremities fine motor seems to be delayed left greater than right on her hands Extrem: Other: Patient only has 3/5 strength on straight leg raise bilateral, 4/5 occupational health technician strength bilateral, no clubbing, no edema Psych: Other: Appropriate mood and affect, pleasant and cooperative, judgment and insight intact, denies suicidal or homicidal ideation H&P: Results Labs Labs: Short CBC 09/03/24 Range/Units 08:20 WBC 9.5 (4.5-10.0) K/mm3 Hgb 9.7 L (12.0-15.0) g/dL Hct 31.1 L (37.0-47.0) % Plt Count 269 (150-375) k/mm3 BMP 09/03/24 08:20 Sodium 140 Potassium 4.5 Chloride 109 H Carbon Dioxide 22 BUN 26 H Creatinine 0.90 Glucose 157 H Calcium 9.2 Cardiac Enzymes 09/03/24 Range/Units 08:20 Troponin I < 0.012 (0.000-0.034) ng/mL Liver Function 09/03/24 Range/Units 08:20 Total Bilirubin 0.4 (0.2-1.3) mg/dL AST 18 (14-36) U/L ALT 10 (6-35) U/L Alkaline Phosphatase 82 (38-126) U/L Albumin 4.1 (3.5-5.1) g/dL Urine 09/03/24 Range/Units 08:20 Urine Color Yellow (Yellow) Urine Appearance Clear (Clear) Urine pH 5.0 (5.0-9.0) Ur Specific [place] 1.021 (1.001-1.035) Urine Protein Negative (Negative) mg/dL Urine Glucose (UA) Negative (Negative) mg/dL 09/03/24 09/03/24 09/04/24 08:20 19:44 05:24 WBC 9.5 Pending RBC 3.12 L Pending Hgb 9.7 L Pending Hct 31.1 L Pending MCV 99.7 Pending MCH 31.1 Pending MCHC 31.2 L Pending RDW 14.5 Pending Plt Count 269 Pending MPV 10.8 H Pending Immature Gran % (Auto) 0.6 H Neut % (Auto) 79.5 H Lymph % (Auto) 11.3 L Cole % (Auto) 6.4 Eos % (Auto) 1.9 Baso % (Auto) 0.3 Lymph # (Auto) 1.07 Cole # (Auto) 0.6 Eos # (Auto) 0.2 Baso # (Auto) 0.0 Abs Immat Gran (auto) 0.06 H Absolute Neuts (auto) 7.5 H Absolute Nucleated RBC 0.000 Nucleated RBC % 0.0 PT 13.3 INR 1.0 Sodium 140 Pending Potassium 4.5 Pending Chloride 109 H Pending Carbon Dioxide 22 Pending Anion Gap 9 Pending BUN 26 H Pending Creatinine 0.90 Pending Estim Creat Clear Calc 55 Pending Estimated GFR 60 Pending Glucose 157 H Pending POC Capillary Glucose 157 H Lactic Acid 1.5 Calcium 9.2 Pending Iron Pending TIBC Pending % Saturation Pending Ferritin Pending Total Bilirubin 0.4 AST 18 ALT 10 Alkaline Phosphatase 82 Total Creatine Kinase Pending Troponin I < 0.012 NT-Pro-B Natriuret Pep 1120 H Total Protein 7.0 Albumin 4.1 Vitamin B12 Pending Folate Pending Urine Color Yellow Urine Appearance Clear Urine pH 5.0 Ur Specific [place] 1.021 Urine Protein Negative Urine Glucose (UA) Negative Urine Ketones Negative Ur Blood (Man) Negative Urine Nitrate Negative Urine Bilirubin Negative Urine Urobilinogen 0.2 Leukocyte Esterase Rfl Trace H Urine RBC 0-2 Urine WBC 0-5 Ur Squamous Epith Cells None seen Urine Bacteria 4+ H Urine Casts 0-[address] 09/03/24 07:55 (not personally reviewed) Impression: No fracture or subluxation of the cervical spine. Severe degenerative spondylosis at C5-C6 and C6-C7, moderate to severe canal stenosis and severe bilateral neural foraminal narrowing at these levels. Additional degenerative changes, as above. Head CT 09/03/24 07:57 Impression: No intracranial hemorrhage, mass, or acute infarct. Extensive chronic right frontal lobe encephalomalacia. Atrophy and chronic white matter changes, as above. Chest X-Ray 09/03/24 07:58 Impression: Possible minimal bibasilar pulmonary edema. EKG: cardiology interpretation below Measurements Intervals [place] Rate: 66 P: -80 DE: 130 QRS: -2 QRSD: 101 T: 104 QT: 392 QTc: 413 Interpretive Statements SINUS RHYTHM WITH OCCASIONAL SUPRAVENTRICULAR PREMATURE COMPLEXES NONSPECIFIC ST & T-WAVE ABNORMALITY No previous ECG available for comparison All imaging and EKGs personally reviewed and interpreted. And unless stated otherwise agree with radiologic and cardiology interpretation. Assessment and Plan Assessment and plan (1) Frequent falls: Code(s): R29.6 - Repeated falls Status: Acute (2) Lower extremity weakness: Qualifiers: Laterality: bilateral Qualified Code(s): R29.898 - Other symptoms and signs involving the musculoskeletal system Code(s): R29.898 - Other symptoms and signs involving the musculoskeletal system Status: Acute (3) Foot pain, bilateral: Code(s): M79.671 - Pain in right foot; M79.672 - Pain in left foot Status: Acute (4) Bilateral knee pain: Qualifiers: Chronicity: chronic Qualified Code(s): M25.561 - Pain in right knee; M25.562 - Pain in left knee; G89.29 - Other chronic pain Code(s): M25.561 - Pain in right knee; M25.562 - Pain in left knee Status: Acute (5) Right shoulder pain: Qualifiers: Chronicity: chronic Qualified Code(s): M25.511 - Pain in right shoulder; G89.29 - Other chronic pain Code(s): M25.511 - Pain in right shoulder Status: Acute (6) Incontinence in female: Code(s): R32 - Unspecified urinary incontinence Status: Acute (7) Obesity, Class III, BMI 40-49.9 (morbid obesity): Code(s): E66.01 - Morbid (severe) obesity due to excess calories Status: Acute (8) FREIDA (obstructive sleep apnea): Code(s): G47.33 - Obstructive sleep apnea (adult) (pediatric) Status: Acute (9) Hypothyroidism: Qualifiers: Hypothyroidism type: unspecified Qualified Code(s): E03.9 - Hypothyroidism, unspecified Code(s): E03.9 - Hypothyroidism, unspecified Status: Acute (10) Type 2 diabetes mellitus without complications: Qualifiers: Diabetes mellitus care home insulin use: without long goods drier use Qualified Code(s): E11.9 - Type 2 diabetes mellitus without complications Code(s): E11.9 - Type 2 diabetes mellitus without complications Status: Acute Plan The patient reports increasing weakness and increasing pain in her bilateral knees and ankles. She reports the pain is 7/10 intensity. Is so bad that she has to Labor quite hard to walk and then this makes her feel short of breath. That he pain in her knees and ankles has been worsening over the last couple of months. She has gotten progressively weaker as a result of this. She also has some chronic right shoulder pain which has been worse because she has had been having to be more dependent upon her walker. Will check CK level to rule out any component of possible rhabdomyolysis given the patient's on multiple statins/triglyceride medications. Will hold statin will request PT and OT eval. Patient will likely need rehab placement. Given her increased weakness will check TSH to rule out decompensation in her chronic hypothyroidism. Other sources of pain have been considered including polymyalgia rheumatica but patient's distribution of pain and symptoms seems inconsistent with this diagnosis. Patient does have anemia hemoglobin seems to be stable but will check iron studies and repeat hemoglobin to ensure that of portion the patient's weaknesses in due to worsening anemia. Oral hypoglycemic agents have been placed on hold and place patient on moderate dose sliding scale insulin a.c. HS with hypoglycemia protocol The patient forgot her mask for her home CPAP/BiPAP subsequently auto titrating BiPAP has been ordered. Patient is tolerating suffice adequately. Patient has chronic urinary incontinence and has difficulty making it to the restroom 7 a large pressure incontinence is due to functional incontinence. Pure wick catheter is in place. Patient has been admitted as observation status. Quality VTE Prophylaxis VTE prophylaxis: mechanical ordered (SCDs) Hospitalist MIPS Advance Care Plan I have confirmed that the patient's Advanced Care Plan is present, code status is documented, or surrogate decision maker is listed in patient medical record.: Yes Medication Reconciliation I have utilized all available resources to obtain, update and review the patients current medications (includes all prescriptions, OTC, herbals, cannabis, and nutritional supplements).: Yes
[2024-09-04 06:00] VITALS: BP 168/73; PULSE 82; RESP 16; TEMP 37; O2SAT 93
[2024-09-04 06:00] LABS: Hematocrit 29.7 % (37.0-47.0); Hemoglobin 9.2 g/dL (12.0-15.0); Mean Corpuscular Hemoglobin 30.4 pg (26-34); Mean Platelet Volume 10.3 fl (7.4-10.4); Platelet Count Result 281 k/mm3 (150-375); Red Blood Count 3.03 M/mm3 (4.2-5.4); Red Cell Distribution Width 14.5 % (11.5-14.5); White Blood Count 7.1 K/mm3 (4.5-10.0)
[2024-09-04 06:09] LABS: Anion Gap 7 mmol/L (4-12); Blood Urea Nitrogen 21 mg/dL (7-17); Calcium 9.5 mg/dL (8.4-10.2); Carbon Dioxide 25 mmol/L (22-30); Chloride 107 mmol/L (98-107); Creatine Kinase 423 U/L (30-135); Estimated CRCL calculation 67 ml/min; Estimated Glomerular Filt Rate > 60; Glucose 112 mg/dL (65-110); Potassium 3.8 mmol/L (3.4-5.0); Sodium 139 mmol/L (137-145)
[2024-09-04 06:41] LABS: Iron 42 ug/dL (37-170)
[2024-09-04 06:50] LABS: Percent Iron Saturation 13 % (20-50)
[2024-09-04 07:20] LABS: Folic Acid > 20.0 ng/mL (2.76->20); Vitamin B12 > 1000.0 pg/mL (239-931)
[2024-09-04 08:01] LABS: Glucose Point of Care 122 mg/dl (65-105)
[2024-09-04] MEDS: levETIRAcetam 500 MG TABLET PO (08:28)
[2024-09-04] MEDS: LEVOTHYROXINE SODIUM 112 MCG TABLET PO (08:28)
[2024-09-04] MEDS: METOPROLOL TARTRATE 50 MG TAB PO ×2 (08:28→21:42)
[2024-09-04] MEDS: LEVOTHYROXINE SODIUM 25 MCG TABLET PO (08:29)
[2024-09-04] MEDS: FOLIC ACID 1 MG TABLET PO (08:29)
[2024-09-04] MEDS: gemfibroziL 600 MG TABLET PO ×2 (08:29→17:19)
[2024-09-04] MEDS: OLMESARTAN MEDOXOMIL 20 MG TABLET 40 MG PO (08:29)
[2024-09-04] MEDS: LORATADINE 10 MG TABLET PO (08:29)
[2024-09-04] MEDS: PANTOPRAZOLE 40 MG TABLET PO (08:29)
[2024-09-04] MEDS: SERTRALINE HCL 50 MG TABLET 150 MG PO (08:29)
[2024-09-04] MEDS: IBUPROFEN 200 MG TABLET PO ×3 (08:29→17:19)
[2024-09-04] MEDS: buPROPion HCL 75 MG TABLET 150 MG PO (09:37)
[2024-09-04 12:09] LABS: Glucose Point of Care 160 mg/dl (65-105)
[2024-09-04] MEDS: FERROUS SULFATE 325 MG TABLET DR BY MOUTH ×2 (12:49→17:19)
[2024-09-04 14:00] VITALS: BP 150/62; PULSE 84; RESP 16; TEMP 36.8; O2SAT 96
--- NOTE | 2024-09-04 14:29 | PCOTNOTE ---
Patient unavailable at this time for OT treatment session. Patient having a ECHO done at this time.
--- NOTE | 2024-09-04 16:30 | P.PNCROSS_ITS ---
Event Note Event Note Event Note: Patient had been seen and assessed by previous provider same day I followed up with patient this afternoon did report she you was feeling mildly better however still had generalized weakness and difficulty getting out of bed. after review of patient's records she does have history of bilateral osteoarthritis of her knees currently sees Dr. Robles outpatient with Orthopedics however he has advised her she will need to lose some weight prior to bilateral knee replaceme nt. Patient's chest x-ray did show some interstitial edema and BNP was mildly elevated ordered an echocardiogram to review patient's cardiac function due to her increasing weakness and shortness of breath with exertion per . Patient reports she typically can use a walker at home however she currently has been unable to ambulate due to severe pain to bilateral knees and shortness of breath with activity. will get physical and occupational therapy to work with patient pending recommendations for rehab patient and are agreeable for rehabilitation.
[2024-09-04 17:03] LABS: Glucose Point of Care 139 mg/dl (65-105)
[2024-09-04] MEDS: DICLOFENAC SODIUM 1% 100 GM GEL (*BKC) 1 APPLIC TOPICAL ×2 (17:23→21:45)
[2024-09-04 21:15] VITALS: PULSE 84; RESP 20; O2SAT 96
[2024-09-04 21:42] VITALS: PULSE 76
[2024-09-04] MEDS: SENNA/DOCUSATE SODIUM TABLET 1 TAB PO (21:42)
[2024-09-04 22:14] VITALS: BP 151/64; PULSE 81; RESP 16; TEMP 37.2; O2SAT 93
[2024-09-04 23:59] LABS: Glucose Point of Care 131 mg/dl (65-105)
[2024-09-05] VITALS (7 sets, daily range): BP systolic 111–188; BP diastolic 68–80; PULSE 73–88; RESP 15–18; TEMP 36.1–36.3; O2SAT 93–96
[2024-09-05] MEDS: LEVOTHYROXINE SODIUM 25 MCG TABLET PO (06:01)
[2024-09-05] MEDS: LEVOTHYROXINE SODIUM 112 MCG TABLET PO (06:01)
[2024-09-05 08:27] LABS: Glucose Point of Care 129 mg/dl (65-105)
[2024-09-05] MEDS: gemfibroziL 600 MG TABLET PO ×2 (09:07→17:51)
[2024-09-05] MEDS: levETIRAcetam 500 MG TABLET PO (09:07)
[2024-09-05] MEDS: IBUPROFEN 200 MG TABLET PO ×3 (09:07→17:51)
[2024-09-05] MEDS: OLMESARTAN MEDOXOMIL 20 MG TABLET 40 MG PO (09:07)
[2024-09-05] MEDS: PANTOPRAZOLE 40 MG TABLET PO (09:07)
[2024-09-05] MEDS: SERTRALINE HCL 50 MG TABLET 150 MG PO (09:07)
[2024-09-05] MEDS: polyethylene glycoL 3350 17 GM POWD.PACK PO (09:07)
[2024-09-05] MEDS: FOLIC ACID 1 MG TABLET PO (09:07)
[2024-09-05] MEDS: LORATADINE 10 MG TABLET PO (09:07)
[2024-09-05] MEDS: buPROPion HCL 75 MG TABLET 150 MG PO (09:07)
[2024-09-05] MEDS: METOPROLOL TARTRATE 50 MG TAB PO ×2 (09:08→21:20)
[2024-09-05] MEDS: DICLOFENAC SODIUM 1% 100 GM GEL (*BKC) 1 APPLIC TOPICAL ×4 (09:10→21:21)
[2024-09-05 09:20] LABS: Hematocrit 34.9 % (37.0-47.0); Hemoglobin 10.6 g/dL (12.0-15.0); Mean Corpuscular HGB Conc 30.4 g/dl (32-36); Mean Corpuscular Hemoglobin 29.8 pg (26-34); Mean Platelet Volume 10.4 fl (7.4-10.4); Platelet Count Result 344 k/mm3 (150-375); Red Blood Count 3.56 M/mm3 (4.2-5.4); Red Cell Distribution Width 14.4 % (11.5-14.5); White Blood Count 9.3 K/mm3 (4.5-10.0)
[2024-09-05 09:36] LABS: Alanine Aminotransferase 13 U/L (6-35); Albumin Level 4.3 g/dL (3.5-5.1); Alkaline Phosphatase 85 U/L (38-126); Anion Gap 9 mmol/L (4-12); Aspartate Amino Transferase 29 U/L (14-36); Bilirubin,Total 0.4 mg/dL (0.2-1.3); Blood Urea Nitrogen 27 mg/dL (7-17); Calcium 9.8 mg/dL (8.4-10.2); Carbon Dioxide 26 mmol/L (22-30); Chloride 104 mmol/L (98-107); Estimated CRCL calculation 59 ml/min; Estimated Glomerular Filt Rate > 60; Glucose 137 mg/dL (65-110); Potassium 4.1 mmol/L (3.4-5.0); Sodium 139 mmol/L (137-145)
[2024-09-05 12:05] LABS: Glucose Point of Care 140 mg/dl (65-105)
[2024-09-05] MEDS: FERROUS SULFATE 325 MG TABLET DR BY MOUTH ×2 (13:11→17:51)
--- NOTE | 2024-09-05 14:03 | PHAR ---
HOME MED TROSPIUM CL 20 MG TAB; TAKE 1 TABLET BY MOUTH TWICE DAILY. VERIFIED BY PHARMACY.
--- NOTE | 2024-09-05 14:38 | P.PNIM_ITS ---
Progress Note: A&P Assessment and Plan (1) Bilateral knee pain: Qualifiers: Chronicity: chronic Qualified Code(s): M25.561 - Pain in right knee; M25.562 - Pain in left knee; G89.29 - Other chronic pain Code(s): M25.561 - Pain in right knee; M25.562 - Pain in left knee Status: Acute Assessment and Plan: * Patient bilateral severe OA of bilateral knee' * was following with [facility] orthopedics for possible surgery but will need weight loss prior * was using wheelchair but mostly bedridden per family * Pain management * voltaren cream * PT/OT will need rehab (2) Lower extremity weakness: Qualifiers: Laterality: bilateral Qualified Code(s): R29.898 - Other symptoms and signs involving the musculoskeletal system Code(s): R29.898 - Other symptoms and signs involving the musculoskeletal system Status: Acute Assessment and Plan: SEE ABOVE # 1 (3) Frequent falls: Code(s): R29.6 - Repeated falls Status: Acute Assessment and Plan: * Secondary to OA of bilateral knees * PT/OT plan for rehab * Echo with left ventricular diastolic function is grade I diastolic dysfunction. LVEF 65-70 (4) Morbid obesity with BMI of 50.0-59.9, adult: Code(s): E66.01 - Morbid (severe) obesity due to excess calories; Z68.43 - Body mass index [BMI] 50.0-59.9, adult Status: Acute Assessment and Plan: * encourage increased on physical activity and lifestyle modifications * Stress monitoring and eating disorder evaluation. * BMI 43.4 * Diet exercise counseling done. * consult to dietitian (5) Left hemiparesis: Code(s): G81.94 - Hemiplegia, unspecified affecting left nondominant side Status: Acute Assessment and Plan: * Previous hemorrhagic stroke (6) Type 2 diabetes mellitus without complications: Qualifiers: Diabetes mellitus ad terminal makeup operator insulin use: without ad terminal makeup operator use Qualified Code(s): E11.9 - Type 2 diabetes mellitus without complications Code(s): E11.9 - Type 2 diabetes mellitus without complications Status: Acute Assessment and Plan: * Accu-Cheks a.c. HS * sliding scale insulin * hold oral diabetic medications * Hemoglobin A1c goal less than 7 * Resume statin * Diabetic diet * consult to dietitian * encourage lifestyle modifications and weight loss * Optimize Zackery inhibitors and statins. * Watch for hypoglycemia/hypoglycemic protocol ordered (7) Essential (primary) hypertension: Code(s): I10 - Essential (primary) hypertension Status: Acute Assessment and Plan: * Resume metoprolol and olmesartan * monitor BP per unit protocol (8) Hyperlipidemia: Code(s): E78.5 - Hyperlipidemia, unspecified Status: Acute Assessment and Plan: * Resumed Statin (9) Seizures: Code(s): R56.9 - Unspecified convulsions Status: Acute Assessment and Plan: * Post stroke * resumed Keppra (10) FREIDA (obstructive sleep apnea): Code(s): G47.33 - Obstructive sleep apnea (adult) (pediatric) Status: Acute Assessment and Plan: * Resumed CPAP Plan Code status: DNR DVT prophylaxis: Lovenox Stress ulcer prophylaxis: Protonix 40 daily PT/OT notes: PT/OT pending/REHAB Disposition: Patient continues admission to the medical unit due to unsteady gait inability to ambulate due to moderate to severe bilateral knee pain PT/OT order pending for recommendations but appears patient will likely need rehab services for discharge. Time Spent With Patient Time with patient: 15 - 25 minutes Subjective Date/time seen: 09/05/24 14:38 Interval history: Patient is a 79-year-old female who was admitted for further evaluation and treatment of generalized weakness, unsteady gait, moderate to severe bilateral knee pain and inability to ambulate. 09/05/2024: Patient feeling well today but still having moderate to severe bilateral knee pain. She denied CP, SOB, N/V, fever or chills but did have complaints of constipation. Review of Systems Review of Systems: All systems reviewed & are unremarkable except as noted in HPI and below Exam Narrative: * GENERAL: Alert and oriented x 3. No acute distress. Obese * EYES: PERRLA. * HEENT: Moist mucous membranes. * LUNGS: Clear to auscultation bilaterally. No accessory muscle use. * CARDIOVASCULAR: Regular rate and rhythm. S1-S2 * ABDOMEN: Soft, non tenderness and non-distended. No palpable masses. * EXTREMITIES: no pitting edema, Bilateral knee pain * SKIN: No rashes or lesions. Skin warm, dry. * NEUROLOGIC: No focal neurological deficits. CN II-XII grossly intact * PSYCHIATRIC: Appropriate mood and affect. Good judgement and insight. Objective Data Vital Signs Vital Signs: Vital Signs - 24 hr 09/04/24 20:00 09/04/24 21:15 09/04/24 21:42 Temperature Pulse Rate 84 76 Respiratory Rate 20 Blood Pressure Pulse Oximetry 96 Oxygen Delivery Room Air Autopap 09/04/24 22:14 09/05/24 02:25 09/05/24 06:00 Temperature 98.9 F 97.0 F L Pulse Rate 81 81 73 Respiratory Rate 16 15 18 Blood Pressure 151/64 H 160/68 H Pulse Oximetry 93 93 96 Oxygen Delivery Autopap 09/05/24 08:00 09/05/24 09:08 09/05/24 13:56 Temperature 97.4 F L Pulse Rate 88 77 Respiratory Rate 18 Blood Pressure 111/80 Pulse Oximetry 95 Oxygen Delivery Room Air Intake/Output Intake/Output: Intake & Output 09/02/24 09/03/24 09/04/24 09/05/24 23:59 23:59 23:59 23:59 Intake Total 1320 1360 Output Total 1510 900 Balance -190 460 Meds/Results Medications: Active Medications Generic Name Dose Route Start Last Admin Trade Name Freq PRN Reason Stop Dose Admin Acetaminophen 650 mg 09/03/24 17:23 Acetaminophen 325 Mg Tablet PO Q4H PRN Mild Pain (1-3) or Fever Bupropion HCl 150 mg 09/04/24 09:00 09/05/24 09:07 Bupropion Hcl 75 Mg Tablet PO 150 mg DAILY SAMI Administration Diclofenac Sodium 1 applic 09/04/24 17:00 09/05/24 13:11 Diclofenac Sodium 1% 100 Gm Gel (*Bkc) TOPICAL 1 applic QID SAMI Administration Ferrous Sulfate 325 mg 09/04/24 12:00 09/05/24 13:11 Ferrous Sulfate [address] BY MOUTH 325 mg DAILY@1200,1700 SAMI Administration Folic Acid 1 mg 09/04/24 09:00 09/05/24 09:07 Folic Acid 1 Mg Tablet PO 1 mg DAILY SAMI Administration Gemfibrozil 600 mg 09/04/24 09:00 09/05/24 09:07 Gemfibrozil 600 Mg Tablet PO 600 mg BID SAMI Administration Ibuprofen 200 mg 09/04/24 09:00 09/05/24 13:11 Ibuprofen 200 Mg Tablet PO 200 mg TID SAMI Administration Insulin Aspart 3 - 6 units 09/04/24 08:00 09/05/24 13:10 Insulin Aspart (*Bkc) 100 Units/Ml SUB-Q Not Given [facility] Protocol Levetiracetam 500 mg 09/04/24 09:00 09/05/24 09:07 Levetiracetam 500 Mg Tablet PO 500 mg DAILY SAMI Administration Levothyroxine Sodium 25 mcg 09/04/24 06:30 09/05/24 06:01 Levothyroxine Sodium 25 Mcg Tablet PO 25 mcg DAILY@0630 SAMI Administration Levothyroxine Sodium 112 mcg 09/04/24 06:30 09/05/24 06:01 Levothyroxine Sodium 112 Mcg Tablet PO 112 mcg DAILY@0630 SAMI Administration Loratadine 10 mg 09/04/24 09:00 09/05/24 09:07 Loratadine 10 Mg Tablet PO 10 mg QAM SAMI Administration Metoprolol Tartrate 50 mg 09/04/24 09:00 09/05/24 09:08 Metoprolol Tartrate 50 Mg Tab PO 50 mg Q12HR SAMI Administration Trospium 20 Mg 20 mg 09/05/24 17:00 Tablet Home Med PO 10/05/24 16:59 BID SAMI Olmesartan 40 mg 09/04/24 09:00 09/05/24 09:07 Olmesartan Medoxomil 20 Mg Tablet PO 40 mg DAILY SAMI Administration Ondansetron HCl 4 mg 09/03/24 17:23 Ondansetron Inj 4 Mg/2 Ml Vial IV PUSH Q4H PRN Nausea Pantoprazole Sodium 40 mg 09/04/24 09:00 09/05/24 09:07 Pantoprazole 40 Mg Tablet PO 40 mg QAM SAMI Administration Perflutren Lipid Microsphere 0 ml 09/04/24 12:49 Perflutren Lipid Microspheres 1.5 Ml Vial Diluted To 10 Ml Total Volume IV PUSH 09/07/24 12:49 ONCE PRN adequate visualization Protocol Polyethylene Glycol 17 gm 09/05/24 09:00 09/05/24 09:07 Polyethylene Glycol 3350 17 Gm Powd.Pack PO 17 gm QAM SAMI Administration Senna/Docusate Sodium 1 tab 09/04/24 21:00 09/04/24 21:42 Senna/Docusate Sodium Tablet PO 1 tab HS SAMI Administration Sertraline HCl 150 mg 09/04/24 09:00 09/05/24 09:07 Sertraline Hcl 50 Mg Tablet PO 150 mg DAILY SAMI Administration Radiology Results: ITS Impressions Cervical Spine CT 09/03/24 07:55 Impression: No fracture or subluxation of the cervical spine. Severe degenerative spondylosis at C5-C6 and C6-C7, moderate to severe canal stenosis and severe bilateral neural foraminal narrowing at these levels. Additional degenerative changes, as above. Head CT 09/03/24 07:57 Impression: No intracranial hemorrhage, mass, or acute infarct. Extensive chronic right frontal lobe encephalomalacia. Atrophy and chronic white matter changes, as above. Chest X-Ray 09/03/24 07:58 Impression: Possible minimal bibasilar pulmonary edema. Labs Labs: Laboratory Results - last 24 hr 12/19/24 12/19/24 12/20/24 16:57 21:01 08:24 WBC RBC Hgb Hct MCV MCH MCHC RDW Plt Count MPV Sodium Potassium Chloride Carbon Dioxide Anion Gap BUN Creatinine Estim Creat Clear Calc Estimated GFR Glucose POC Capillary Glucose 139 H 131 H 129 H Calcium Total Bilirubin AST ALT Alkaline Phosphatase Total Protein Albumin 09/05/24 09/05/24 08:53 12:02 WBC 9.3 RBC 3.56 L Hgb 10.6 L Hct 34.9 L MCV 98.0 MCH 29.8 MCHC 30.4 L RDW 14.4 Plt Count 344 MPV 10.4 Sodium 139 Potassium 4.1 Chloride 104 Carbon Dioxide 26 Anion Gap 9 BUN 27 H Creatinine 0.80 Estim Creat Clear Calc 59 Estimated GFR > 60 Glucose 137 H POC Capillary Glucose 140 H Calcium 9.8 Total Bilirubin 0.4 AST 29 ALT 13 Alkaline Phosphatase 85 Total Protein 8.0 Albumin 4.3 Quality VTE Prophylaxis VTE prophylaxis: pharmacologic ordered -Patient's previous records reviewed on admission -ER notes reviewed in detail on admission -discussed all findings and current treatment plan with patient/Family/POA -Consultations reviewed for recommendations -Patient's disposition for safe discharge discussed with case management social worker Dictation performed by [employer] direct speech recognition software, therefore twisthand variants and typographical errors may occur. Hospitalist MIPS Advance Care Plan I have confirmed that the patient's Advanced Care Plan is present, code status is documented, or surrogate decision maker is listed in patient medical record.: Yes Medication Reconciliation I have utilized all available resources to obtain, update and review the patient s current medications (includes all prescriptions, OTC, herbals, cannabis, and nutritional supplements).: Yes The patient is not eligible for med reconciliation; the patient is in a emergent medical situation where delaying treatment would jeopardize the patients health.: No
--- NOTE | 2024-09-05 15:35 | P.DS_ITS ---
DS: Admitting Diagnosis Discharge Date 09/05/24 Admitting Diagnosis bilateral knee pain/ inability to ambulate or care for self/ generalized weakness DS: Discharge Diagnosis Discharge Diagnosis (1) Bilateral knee pain: Qualifiers: Chronicity: chronic Qualified Code(s): M25.561 - Pain in right knee; M25.562 - Pain in left knee; G89.29 - Other chronic pain Code(s): M25.561 - Pain in right knee; M25.562 - Pain in left knee Status: Acute Assessment and Plan: * Pain management * NSAIDS * voltaren cream * PT/OT inpatient rehab (2) Lower extremity weakness: Qualifiers: Laterality: bilateral Qualified Code(s): R29.898 - Other symptoms and s igns involving the musculoskeletal system Code(s): R29.898 - Other symptoms and signs involving the musculoskeletal system Status: Acute Assessment and Plan: SEE ABOVE # 1 (3) Frequent falls: Code(s): R29.6 - Repeated falls Status: Acute Assessment and Plan: * Secondary to OA of bilateral knees * PT/OT plan for rehab * Echo with left ventricular diastolic function is grade I diastolic dysfunction. LVEF 65-70 (4) Morbid obesity with BMI of 50.0-59.9, adult: Code(s): E66.01 - Morbid (severe) obesity due to excess calories; Z68.43 - Body mass index [BMI] 50.0-59.9, adult Status: Acute Assessment and Plan: * encourage increased on physical activity and lifestyle modifications * Stress monitoring and eating disorder evaluation. * BMI 43.4 * Diet exercise counseling done. (5) Left hemiparesis: Code(s): G81.94 - Hemiplegia, unspecified affecting left nondominant side Status: Acute Assessment and Plan: * Previous hemorrhagic stroke (6) Type 2 diabetes mellitus without complications: Qualifiers: Diabetes mellitus shelter insulin use: without shelter use Qualified Code(s): E11.9 - Type 2 diabetes mellitus without complications Code(s): E11.9 - Type 2 diabetes mellitus without complications Status: Acute Assessment and Plan: * resume home medications monitor blood sugars (7) Essential (primary) hypertension: Code(s): I10 - Essential (primary) hypertension Status: Acute Assessment and Plan: * Resume metoprolol and olmesartan (8) Hyperlipidemia: Code(s): E78.5 - Hyperlipidemia, unspecified Status: Acute Assessment and Plan: * Resumed Statin (9) Seizures: Code(s): R56.9 - Unspecified convulsions Status: Acute Assessment and Plan: * Post stroke * resume Keppra (10) FREIDA (obstructive sleep apnea): Code(s): G47.33 - Obstructive sleep apnea (adult) (pediatric) Status: Acute Assessment and Plan: * Resumed CPAP Plan Disposition: Discharged to [facility] DS: Summary Hospital Course Reason for hospitalization: bilateral knee pain/ inability to ambulate or care for self/ generalized weakness Hospital Course: Patient was a 79-year-old female with past medical history of hemorrhagic stroke in 2010 with residual left-sided weakness, osteoarthritis, morbid obesity, obstructive sleep apnea, hyperlipidemia, essential hypertension and GERD who presented to the ER from home due to generalized weakness and recent fall without loss of consciousness. The patient does have history of chronic left hemiplegia due to prior stroke and she was having trouble keeping her body upright and was leaning more so to the left. Patient had reported progressive weakness over the last several weeks to months. She reports that she has chronic pain in her ankles and knees that is gotten progressively worsened is a 7/10 in intensity any time she tries to get up to ambulate which she reported history of severe osteoarthritis been unable to have surgery due to her obesity. The patient's had reported to me that she had had some increased shortness of breath with ambulation, due to that chest x-ray showing possible pulmonary edema, and worsening weakness I ordered an echocardiogram that showed grade 1 diastolic dysfunction with LVEF of 65-70%. She had denied any cough, congestion, fevers or chills. She can make an effort to lift her legs from the bed but cannot quite get them off of the bed. patient was admitted for evaluation by physical and occupational therapy has been had reported he can no longer assist for ambulation and she states she is too weak at this time to perform any ADLs even with her walker or wheelchair. patient's labs and vitals were unremarkable, cervical CT showed severe degenerative spondylosis of the C5-C6 and C6-C7 with moderate to severe canal stenosis and severe bilateral neural foraminal narrowing at these levels, head CT showed extensive chronic right frontal lobe encephalomalacia and atrophy with chronic white matter changes. patient was evaluated by Physical and Occupational therapy who also agreed patient needed inpatient rehabilitation patient was accepted by [facility] and discharge for continued PT and OT. patient has been updated on discharge plan acknowledged and agreed patient discharge via EMS. Status at Discharge Functional status at discharge: uses cane/walker Overall status at discharge: patient is not back to baseline Time Spent with Patient Time attestation: Total time spent providing and/or coordinating discharge services: Time spent: Greater than 30 minutes Exam Narrative: * GENERAL: Alert and oriented x 3. No acute distress. Obese * EYES: PERRLA. * HEENT: Moist mucous membranes. * LUNGS: Clear to auscultation bilaterally. No accessory muscle use. * CARDIOVASCULAR: Regular rate and rhythm. S1-S2 * ABDOMEN: Soft, non tenderness and non-distended. No palpable masses. * EXTREMITIES: no pitting edema, Bilateral knee pain * SKIN: No rashes or lesions. Skin warm, dry. * NEUROLOGIC: No focal neurological deficits. CN II-XII grossly intact * PSYCHIATRIC: Appropriate mood and affect. Good judgement and insight. DS: Data Data Completed and Pending Labs on day of discharge: Labs from last 24 hours 09/05/24 09/05/24 09/05/24 12:02 08:53 08:24 WBC 9.3 RBC 3.56 L Hgb 10.6 L Hct 34.9 L MCV 98.0 MCH 29.8 MCHC 30.4 L RDW 14.4 Plt Count 344 MPV 10.4 Sodium 139 Potassium 4.1 Chloride 104 Carbon Dioxide 26 Anion Gap 9 BUN 27 H Creatinine 0.80 Estim Creat Clear Calc 59 Estimated GFR > 60 Glucose 137 H POC Capillary Glucose 140 H 129 H Calcium 9.8 Total Bilirubin 0.4 AST 29 ALT 13 Alkaline Phosphatase 85 Total Protein 8.0 Albumin 4.3 09/04/24 09/04/24 21:01 16:57 WBC RBC Hgb Hct MCV MCH MCHC RDW Plt Count MPV Sodium Potassium Chloride Carbon Dioxide Anion Gap BUN Creatinine Estim Creat Clear Calc Estimated GFR Glucose POC Capillary Glucose 131 H 139 H Calcium Total Bilirubin AST ALT Alkaline Phosphatase Total Protein Albumin Discharge Plan Discharge Attending physician on discharge: Keny Hahn Discharging Clinician: Cayla Yarbrough Anticipated Discharge Date/Time: 09/05/24 15:29 Patient Disposition: Inpatient Rehab Facility Activity: may shower, unlimited and as tolerated Diet: heart healthy and diabetic Discharge Instructions: You are being discharged after evaluation for unsteady gait, weakness, and bilateral knee pain. You are being discharged to a rehab facility for continued rehabilitation. I would follow-up with your orthopedic physician outpatient as previously scheduled How can you care for yourself at home? ? Keep track of any new symptoms or changes in your symptoms. ? Rest until you feel better. ? Be safe with medicines. Take your medicines exactly as prescribed. Call your doctor if you think you are having a problem with your medicine. ? Do not drive after taking a prescription pain medicine. ? Ensure to follow-up with primary care physician as indicated and provide updated medication list provided to you at discharge. When should you call for help? Call 911 anytime you think you may need emergency care. For example, call if: ? You passed out (lost consciousness). Call your doctor now or seek immediate medical care if: ? You have new symptoms like fever, difficulty breathing, Chest pain, vomiting, or rash. ? You have new or different pain. ? You are confused and are having trouble thinking clearly. ? Your symptoms are getting worse. Watch closely for changes in your health, and be sure to contact your doctor if: ? You do not get better as expected. Patient Instructions: Osteoarthritis (DC), Weight Management (DC), Obesity (GEN) Patient Language: German Stand Alone Forms: General Discharge Information Follow-up/Referrals: Preston Goetz DO [Primary Care Provider] - 4 Weeks Discharge Medications: New acetaminophen 325 mg Tablet 650 mg PO Q4H PRN (Reason: Mild Pain (1-3) Or Fever) Qty: 2 0RF polyethylene glycol 3350 [Miralax] 17 gram Powder In Packet 17 g PO QAM Qty: 2 0RF sennosides-docusate sodium [Senokot-S] 8.6-50 mg Tablet 1 tab PO HS Qty: 2 0RF oxycodone-acetaminophen 5-325 mg Tablet 1 tablet PO Q4H PRN (Reason: Pain Rated 7-10) Qty: 30 0RF Continued thiamine HCl (vitamin B1) 100 mg tablet 100 mg PO DAILY levetiracetam 500 mg tablet 500 mg PO DAILY fexofenadine [Yuly Allergy] 180 mg tablet 180 mg PO DAILY mecobalamin (vitamin B12) 5,000 mcg tablet,disintegrating 5,000 mcg PO 3XW Januvia 100 mg tablet 100 mg PO DAILY Bydureon BCise 2 mg/0.85 mL auto-injector 2 mg SUB-Q WEEKLY bupropion HCl 75 mg tablet 150 mg PO DAILY sertraline 100 mg tablet 150 mg PO DAILY trospium 20 mg tablet 20 mg PO BID ibuprofen [Advil] 200 mg tablet 200 mg PO TID pravastatin 10 mg tablet 40 mg PO DAILY ergocalciferol (vitamin D2) 1,250 mcg (50,000 unit) capsule 5,000 mcg PO WEEKLY Patient Comments: unknown of last swati taken ferrous sulfate 325 mg (65 mg iron) tablet 325 mg PO BID Qty: 180 1RF gemfibrozil 600 mg tablet 600 mg PO BID Qty: 180 3RF levothyroxine 137 mcg tablet 137 mcg PO DAILY Qty: 90 3RF metoprolol tartrate 50 mg tablet 50 mg PO Q12H Qty: 180 3RF omeprazole 20 mg capsule,delayed release(DR/EC) 20 mg PO DAILY Qty: 90 3RF olmesartan 40 mg tablet 40 mg PO DAILY Qty: 90 3RF metformin 500 mg tablet 500 mg PO BID Qty: 180 3RF folic acid 1 mg tablet 1 mg PO DAILY Qty: 90 3RF Date of admission: 09/03/24 17:23 Primary Care Provider: Preston Goetz Admitting Provider: Domenico Woodward Attending physician on admission: Cayla Yarbrough Condition: Stable Quality VTE Prophylaxis VTE prophylaxis: pharmacologic ordered -Patient's previous records reviewed on admission -ER notes reviewed in detail on admission -discussed all findings and current treatment plan with patient/Family/POA -Consultations reviewed for recommendations -Patient's disposition for safe discharge discussed with manager rn case Dictation performed by [employer] direct speech recognition software, therefore [employer] bullet maker variants and typographical errors may occur. Hospitalist MIPS Heart Failure (Exclusion) Patient has history of Heart Transplant or Left Ventricular Assistive Device?: No IF YES, STOP HERE Heart Failure (Qualifier) Patient has current or prior documentation of LVEF less than or equal to 40%, or mod/servere depressed LVSF?: No IF NO, STOP HERE
--- NOTE | 2024-09-05 15:37 | PCDIET ---
Nutrition consult: Consult for weight loss. Pt sleeping when seen. Being discharged to placement per RN. Pt with severe osteoarthritis and hemiplegia. Ability to exercise is limited. Pt can follow as outpatient for obesity, if referral is placed by PCP. Thank for for this consult.
[2024-09-05 17:27] LABS: Glucose Point of Care 133 mg/dl (65-105)
[2024-09-05] MEDS: oxyCODONE/ACETAMINOPHEN (*CRX) 5-325 MG TABLET 1 TABLET PO (17:51)
[2024-09-05] MEDS: TROSPIUM 20 MG 20 EACH PO (17:51)
[2024-09-05] MEDS: SENNA/DOCUSATE SODIUM TABLET 1 TAB PO (21:21)
[2024-09-06 01:15] LABS: Glucose Point of Care 138 mg/dl (65-105)
== END 2024-09-05 21:48 ==
LOC: ANHED 17:23 → ANH3MED 09-04 07:59
PROVIDERS: Internal Medicine; Admitting Provider Hospitalist; Emergency Provider Family Medicine; PCP Internal Medicine; Visit Provider Nurse Practitioner Family
DX: R29.898 Other symptoms and signs involving the musculoskeletal system (principal); R26.81 Unsteadiness on feet; R29.6 Repeated falls; M25.562 Pain in left knee; M25.561 Pain in right knee; M17.0 Bilateral primary osteoarthritis of knee; G89.29 Other chronic pain; E66.01 Morbid (severe) obesity due to excess calories; Z68.41 Body mass index [BMI] 40.0-44.9, adult; I69.354 Hemiplegia and hemiparesis following cerebral infarction affecting left non-dominant side; E11.9 Type 2 diabetes mellitus without complications; I10 Essential (primary) hypertension; E78.5 Hyperlipidemia, unspecified; I69.398 Other sequelae of cerebral infarction; R56.9 Unspecified convulsions; G47.33 Obstructive sleep apnea (adult) (pediatric); M25.511 Pain in right shoulder; M79.672 Pain in left foot; M79.671 Pain in right foot; D64.9 Anemia, unspecified; R06.02 Shortness of breath; F32.A Depression, unspecified; E03.9 Hypothyroidism, unspecified; K21.9 Gastro-esophageal reflux disease without esophagitis; R32 Unspecified urinary incontinence; Z79.899 Other long term (current) drug therapy; Z66 Do not resuscitate
CPT/HCPCS: 36415; 70450; 71045; 72125; 80048; 80053; 81001; 82550; 82607; 82728; 82746; 82948; 83540; 83550; 83605; 83880; 84484; 85025; 85027; 85610; 93005; 93306; 96374; 97110; 97162; 97165; 97530; 97535; 99285; A9270; G0378

== ENCOUNTER 2024-11-21 14:51 | Inpatient (IN) | payer MEDICARE, SELFPAY ==
--- NOTE | ~2024-11-21 | CT_ITS ---
EXAMINATION:CT diagnostic chest wo con DATE: 11/22/2024 01:56 INDICATION: Cough. TECHNIQUE: Computed tomography (CT) of the chest was performed without intravenous contrast. Automate d exposure control and iterative reconstruction technique were employed. The dose-length product (DLP ) was 837.55 mGy-cm. COMPARISON: CT abdomen and pelvis 04/09/2011 FINDINGS: There is volume loss of left lung. The lungs demonstrate mild atelectasis. There is a 4 mm nodule in right lower lobe, likely benign. No pleural effusion. Cardiomegaly is noted. No pericardial effusion. Aortic ectasia is noted measuring 4.4 cm in ascending aorta and 4.2 cm in descending aorta . The gallbladder is distended, which may be secondary to fasting. There is a filter in the inferior vena cava. There is severe cervical and thoracic spondylosis. IMPRESSION: 1. Cardiomegaly. 2. Gallbladder distention, which may be secondary to fasting. Reviewed, dictated and finalized at location A. FIER OPERATOR
--- NOTE | ~2024-11-21 | XR_ITS ---
EXAMINATION: XR chest 1V portable DATE: 11/22/2024 01:41 INDICATION: Cough. TECHNIQUE: A single frontal view of the chest was obtained. COMPARISON: Chest single view 09/03/2024, chest CT 11/22/2024 FINDINGS: There is no pneumonia, pleural effusion, or pneumothorax. Cardiomegaly is noted. IMPRESSION: 1. Cardiomegaly. Reviewed, dictated and finalized at location A. STRIAL HYGIENIST IMPRESSION: 1. Cardiomegaly.
--- OUTSIDE RECORDS SUMMARY | 2024-11-21 14:59 | XMS_ITS ---
Author Organization [facility] [employer] [facility] Address [address] [facility] [address] [place] [address] Care Team Providers Care Community Health Advisor Name Role Phone Jyoti Crowell Unavailable [phone] Donna Munson Unavailable [phone] Social History Sex Assigned At : Social History Observation Description Sex Assigned At Female Encounters Encounter Location Date Provider Diagnosis [place] [id number] [facility] [address] [facility] [address] [place] [address] 07/08/2024 Donna Munson Plan Of Treatment No Information Progress Notes * MARCO A ROBBINSDOB:1944 (79 yo F)Acc No.[id number]:07/08/2024 Patient: Jael MARCO A VINCENT :1945 A ge:79 Y S ex:Female Address:[address] [place] [address], [id number] * true * Date: Generated for Printi ng/Faxing/eTransmitting on: 0 11/21/2024 02:59 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
--- OUTSIDE RECORDS SUMMARY | 2024-11-21 14:59 | XMS_ITS ---
Author Organization [facility] Address [address] [place], [place] [id number] Care Team Providers Care Portable Grinding Machine Operator Name Role Phone DANNIROBIN De La Cruz Unavailable [phone] Preston Goetz Unavailable Unavailable Allergies Allergen (clinical drug ingredient) Drug/Non Drug Allergy documented on EMR Reaction Allergy Type Onset Date Status Shellfish (FN) Shellfish (uncoded) Unknown Allergy 02/11 active Iodine Unknown Drug Allergy 02/11/2015 active Latex Latex Unknown Allergy 02/11/2015 active REASON FOR VISIT Patient presents for at-risk foot care . The patient has painful toenails that cause difficulty with ambulation and shoegear. The onset is gradual Encounters Encounter Location Date Provider Diagnosis [facility] [place] [address] [place], [place] [id number] 08/25/2024 ROBIN GUERRA Tinea unguium B35.1 ; Pain in right toe(s) M79.674 and Pain in left toe(s) M79.675 Assessments Encounter Date Diagnosis (ICD Code) Assessment Notes Treatment Notes Treatment Clinical Notes Section Notes 08/25/2024 Tinea unguium (ICD-10 - B35.1) FUNGAL TOENAILS: Discussed various treatment options for fungal toenails including debridement, topical antifungals, oral antifungals, toenail avulsion, or toenail matrixectomy. NAIL DEBRIDEMENT: Nails 1-5 Bilateral were debrided extensively with nail nippers and emery board, reducing length and girth to pink healthy tissue with any subungual debris and necrotic tissue removed 08/25/2024 Pain in right toe(s) (ICD-10 - M79.674) 08/25/2024 Pain in left toe(s) (ICD-10 - M79.675) Plan Of Treatment Treatment Notes Assessment Notes Tinea unguium FUNGAL TOENAILS: Discussed various treatment options for fungal toenails including debridement, topical antifungals, oral antifungals, toenail avulsion, or toenail matrixectomy. NAIL DEBRIDEMENT: Nails 1-5 Bilateral were debrided extensively with nail nippers and emery board, reducing length and girth to pink healthy tissue with any subungual debris and necrotic tissue removed Next Appt Details Follow Up: 10-12 Weeks, Reas on: At Risk Foot care, sooner if problems arise Provider Name:ROBIN GUERRA, 02:40:00 PM, [address], [address], [id number], Progress Notes * MARCO A ROBBINSDOB:1944 (79 yo F)Acc No.[id number]:08/25/2024 Patient: DEVIN PEREZDINORA Bolden Provider: Ronny Guerra DPM :1945 A ge:79 Y S ex:Female Date:08/25/2024 Address:[address] [place], [place] [address] Subjective: * Chief Complaints: * Armida bucio presents for at-risk foot care . The patient has painful toenails that cause difficulty with ambulation and shoegear. The onset is gradual * HPI: H PI: General care Armida bucio presents to the office for diabetic foot care. Patient states that their nails are thickened, elongated and painful. Patient states that it is aggravated by shoe gear. Onset is gradual., Patient denies taking blood thinners., Date last seen by Dr. Goetz was 02/2024., Initials mca. sample. * ROS: G eneral / Constitutional: Patient denies c hills, fever, weight loss. ? M usculoskeletal: Patient denies w eakness, broken foot bone. ? P eripheral Vascular: Patient denies p ain / cramping in legs after exertion, ulceration of feet. S kin: Patient complains of f ungal nails, nail changes, ingrown nails. N eurologic: Patient denies b alance difficulty, confusion, difficulty speaking, dizziness. * Medical History: * Surgical History: * Hospitalization/Major Diagno stic Procedure: * Medications: * Allergies: S hellfish: Allergy - Onset Date 02/11/2015Iodine: Allergy - Onset Date 02/11/2015Latex: Allergy - Onset Date 02/11/2015no[Allergies Verified] Objective: * Vitals: * Examination: C onstitutional: Constitutional T he patient is awake, alert, well developed, well groomed and well nourished. D ermatologic: Skin findings: S kin is thin, atrophic and lacking pedal hair. Nail pathology: N ails 1, 2, 3, 4, and 5 bilateral are elongated, thick, discolored, and dystrophic with subungual debris. They are painful to palpation. ? V ascular: Dorsalis pedis pulse: 1 /4 b ilateral. Posterior tibial pulse: 0 /4 b ilateral. Capillary refill: g reater than 3 seconds. Edema: N o edema, bilateral. N eurologic: Gross sensation G ross sensation is intact to light touch.? M usculoskeletal: Muscle Strength M uscle strength is 5/5 in regards to dorsiflexion, plantarflexion, inversion, and eversion in bilateral lower extremities. ? Assessment: * Assessment: 1. T inea unguium - B35.1 (Primary) 2 . P ain in right toe(s) - M79.674? 3. P ain in left toe(s) - M79.675 Plan: * Treatment: * Procedure Codes: * Follow Up: 1 0-12 Weeks (Reason: At Risk Foot care, sooner if problems arise) * Billing Information: * Visit Code: 87438 Office Visit, Est Pt., Level 3. * Procedure Codes: * ATING COST CLERK Sign off status: Completed true * Provider: Ronny Guerra DPM Date: 1 10/26/2023 Generated for Matti gonzalez/Josh/eTransmitting on: 0 11/21/2024 02:59 PM OPERATING COST CLERK History and Physical Notes * HPI (History of Present Illness) Category Sub-Category Detail Notes Category Not es HPI General care Patient presents to the office for diabetic foot care. Patient states that their nails are thickened, elongated and painful. Patient states that it is aggravated by shoe gear. Onset is gradual., Patient denies taking blood thinners., Date last seen by Dr. Goetz was 02/2024., Initials mca sample Examination Category Sub-Category Detail Notes Category Not es Dermatologic Skin findings: Skin is thin, at rophic and lacking pedal hair Nail pathology: Nails 1, 2, 3, 4, an d 5 bilateral are elongated, thick, discolored, and dystrophic with subungual debris. They are painful to palpation Neurologic Gross sensation Gross sensation is intact to light touch Vascular Dorsalis pedis pulse: 1/4 bilateral Edema: No edema, bilateral Capillary refill: greater than 3 secon ds Posterior tibial pulse: 0/4 bilateral Musculoskeletal Muscle Strength Muscle strength is 5/5 in regards to dorsiflexion, plantarflexion, inversion, and eversion in bilateral lower extremities Constitutional Constitutional The patient is a wake, alert, well developed, well groomed and well nourished
--- OUTSIDE RECORDS SUMMARY | 2024-11-21 15:00 | XMS_ITS ---
Author Organization [facility] Address [address] [place], [place] [phone] Care Team Providers Care Product Inspection Supervisor Name Role Phone DANNIJono ROBIN Unavailable [phone] Preston Goetz Unavailable Unavailable Allergies Allergen (clinical drug ingredient) Drug/Non Drug Allergy documented on EMR Reaction Allergy Type Onset Date Status Shellfish (FN) Shellfish (uncoded) Unknown Allergy 02/11 active Iodine Unknown Drug Allergy 02/11/2015 active Latex Latex Unknown Allergy 02/11/2015 active REASON FOR VISIT Patient presents for at-risk foot care . The patient has painful toenails and calluses that are causing difficulty with ambulation and shoegear. The onset is gradual. 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, bilateral legs I70.213 and Type 2 diabetes mellitus with other circulatory complications E11.59 Assessments Encounter Date Diagnosis (ICD Code) Assessment Notes Treatment Notes Treatment Clinical Notes Section Notes 05/12/2024 Tinea unguium (ICD-10 - B35.1) NAIL DEBRIDEMENT: Nails 1-5 Bilateral were debrided extensively with nail nippers and emery board, reducing length and girth to pink healthy tissue with any subungual debris and necrotic tissue removed 05/12/2024 Pain in right toe(s) (ICD-10 - M79.674) 05/12/2024 Pain in left toe(s) (ICD-10 - M79.675) 05/12/2024 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 The patient was instructed to check his feet daily to report any problems or signs of infection immediately. The patient was provided written information on Diabetic Foot Care as well as the Amputation Prevention Guide. Plan Of Treatment Treatment Notes Assessment Notes Tinea unguium NAIL DEBRIDEMENT: Na ils 1-5 Bilateral were debrided extensively with nail nippers and emery board, reducing length and girth to pink healthy tissue with any subungual debris and necrotic tissue removed Type 2 diabetes mellitus wit h other circulatory complications Diabetic Foot Care: The patient was educated on diabetes and the lower extremity. The patient was instructed to check his feet daily to report any problems or signs of infection immediately. The patient was provided written information on Diabetic Foot Care as well as the Amputation Prevention Guide. Next Appt Details Follow Up: 10 - 12 weeks, Re ason: At-Risk Foot care, sooner if problems develop. Provider Name:ROBIN GUERRA, 02:40:00 PM, [address], [address], [id number], Progress Notes * MARCO A ROBBINSDOB:1944 (78 yo F)Acc No.[id number]:05/12/2024 Patient: Jael MARCO A VINCENT Provider: Ronny Guerra DPM :1945 A ge:78 Y S ex:Female Date:05/12/2024 Address:[address] [place], [place] [phone] Subjective: * Chief Complaints: * 1 . Patient presents for at-risk foot care . The patient has painful toenails and calluses that are causing difficulty with ambulation and shoegear. The onset is gradual. The patient has diabetes mellitus. * HPI: H PI: General care P fortunato presents to the office for diabetic foot care. Patient states that their nails are thickened, elongated and painful. Patient states that it is aggravated by shoe gear. Onset is gradual., Patient denies taking blood thinners., Date last seen by Dr. Goetz was 6 months ago, has an appointment coming up in May., Initials mf. * ROS: G eneral / Constitutional: Patient [...] difficulty speaking, dizziness. * Medical History: * Family History: F ather: PRN - Father: :: Heart Disease < 55 yrs,,known absent , :: Hypertension,,known absent . M other: PRN - Mother: :: Heart Disease < 55 yrs,,known absent . B rother: SIB - Brother: , :: Heart Disease < 55 yrs,,known absent . * Social History: M igrated Social History: M igrated Social History: History of tobacco use : , Smoking Status : Never smoked. * Allergies: S hellfish: Allergy - Onset Date 02/11/2015, Iodine: Allergy - Onset Date 02/11/2015, Latex: Allergy - Onset Date 02/11/2015. Objective: * Examination: P hysical Examination: General appearance: A lert, pleasant, well-nourished and in no acute distress. D ermatologic: Skin findings: S kin is thin, atrophic and lacking pedal hair. Nail pathology: N ails 1, 2, 3, 4, and 5 bilateral are elongated, thick, discolored, and dystrophic with subungual debris. They are painful to palpation. ? V ascular: Dorsalis pedis pulse: 1 /4 b ilateral. Posterior tibial pulse: 0 /4 bilateral. Capillary refill: g reater than 3 seconds. Edema: N o edema bilateral. N eurologic: Gross sensation G rossly intact to light touch. There is negative Tinel's sign. M usculoskeletal: Muscle Strength M uscle strength is 5/5 in regards to dorsiflexion, plantarflexion, inversion, and eversion in bilateral lower extremities. ? Assessment: * Assessment: 1. 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 P ain in right toe(s) - M79.674 3 . P ain in left toe(s) - M79.675 4 . A therosclerosis of rincon arteries of extremities with intermittent claudication, bilateral legs - I70.213 5 . T ype 2 diabetes mellitus with other circulatory complications - E11.59 Plan: * Treatment: 2. T ype 2 diabetes mellitus with other circulatory complications Notes: Diabetic Foot Care: The patient was educated on diabetes and the lower extremity. The patient was instructed to check his feet daily to report any problems or signs of infection immediately. The patient was provided written information on Diabetic Foot Care as well as the Amputation Prevention Guide. * Follow Up: 1 0 - 12 weeks (Reason: At-Risk Foot care, sooner if problems develop.) * Billing Information: * Visit Code: 04877 Office Visit, Est Pt., Level 3. * Procedure Codes: * Sign off status: Completed true * Provider: Ronny Guerra DPM Date: 0 05/12/2024 Generated for Matti gonzalez/Josh/Kinza on: 0 11/21/2024 02:59 PM LOGISTICS SUPERVISOR History and Physical Notes * HPI (History of Present Illness) Category Sub-Category Detail Notes Category Not es HPI General care Patient presents to the office for diabetic foot care. Patient states that their nails are thickened, elongated and painful. Patient states that it is aggravated by shoe gear. Onset is gradual., Patient denies taking blood thinners., Date last seen by Dr. Goetz was 6 months ago, has an appointment coming up in May., Initials mf Examination Category Sub-Category Detail Notes Category Not es Dermatologic Skin findings: Skin is thin, at rophic and lacking pedal hair Nail pathology: Nails 1, 2, 3, 4, an d 5 bilateral are elongated, thick, discolored, and dystrophic with subungual debris. They are painful to palpation Neurologic Gross sensation Grossly intact t o light touch. There is negative Tinel's sign Vascular Dorsalis pedis pulse: 1/4 bilateral Edema: No edema bilateral Capillary refill: greater than 3 secon ds Posterior tibial pulse: 0/4 bilateral Physical Examination General appearance: Alert, pleasant, well-nourished and in no acute distress Musculoskeletal Muscle Strength Muscle strength is 5/5 in regards to dorsiflexion, plantarflexion, inversion, and eversion in bilateral lower extremities
--- OUTSIDE RECORDS SUMMARY | 2024-11-21 15:00 | XMS_ITS ---
Author [facility] Address [address] [place], [place] [phone] Care Team Providers Care Chief Environmental Commitment Officer Name Role Phone MELVIN ROBIN Unavailable [phone] Preston Goetz Unavailable Unavailable REASON FOR VISIT *General care Encounters Encounter Location Date Provider Diagnosis [facility] [place] [address] [facility] [address] [place], [place] [phone] 08/11/2024 ROBIN GUERRA Plan Of Treatment Next Appt Details Provider Name:ROBIN GUERRA, 02:40:00 PM, [address], [place], [place], [phone], Progress Notes * MARCO A ROBBINSDOB:1944 (79 yo F)Acc No.[id number]:08/11/2024 Patient: Jael MARCO A VINCENT Provider: Ronny Guerra DPM :1945 A ge:79 Y S ex:Female Date:08/11/2024 Address:[address] [place], [place] [phone] Subjective: * Chief Complaints: * 1 . *General care. * Medical History: Objective: * Vitals: Assessment: Plan: * Treatment: * Billing Information: * Visit Code: * Procedure Codes: * Electronic signature of ROBIN GUERRA DPM on 11/21/2024 at 02:59 PM ROUTE DELIVERY CLERK Sign off status: Pending * Provider: Ronny Guerra DPM Date: 1 10/11/2023 Generated for Matti gonzalez/Josh/Kinza on: 0 11/21/2024 02:59 PM ROUTE DELIVERY CLERK
--- OUTSIDE RECORDS SUMMARY | 2024-11-21 15:00 | XMS_ITS ---
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 Name Role Phone Jyoti Crowell Unavailable [phone] Allergies Allergen (clinical drug ingredient) Drug/Non Drug Allergy documented on EMR Reaction Allergy Type Onset Date Status Shellfish (FN) SHELLFISH DERIVED (uncoded) Unknown Allergy 09/12/2023 Active hydromorphone Dilaudid Unknown Drug Allergy 09/12/2023 Ac tive Iodine Unknown Drug Allergy 09/12/2023 Active Latex Latex Unknown Allergy 09/12/2023 Active REASON FOR VISIT Former Donna Pt Medications Medication SIG (Take, Route, Frequency, Duration) Notes Start Date End Date Status Bydureon BCise 2 MG/0.85ML INJECT 2 MG U NDER THE SKIN ONCE WEEKLY Subcutaneous for 84 Days Active levETIRAcetam 500 MG Oral for 90 Days Active Januvia 100 MG TAKE 1 TABLET BY LAVELLE TH DAILY Oral for 90 Days Active FeroSul 325 (65 Fe) MG TAKE 1 TABLET BY MOUTH TWICE DAILY Oral for 90 Days Active buPROPion HCl ER (XL) 150 MG 1 tablet in the morning Oral Once a day for 90 days Active Gemfibrozil 600 MG TAKE 1 TABLET BY LAVELLE TH TWICE DAILY Oral for 90 Days Active Levothyroxine Sodium 137 MCG TAKE 1 TABLET BY MOUTH DAILY Oral for 90 Days Active Omeprazole 20 MG TAKE 1 CAPSULE BY MO UTH DAILY Oral for 90 Days Active Folic Acid 1 MG TAKE 1 TABLET BY LAVELLE TH DAILY Oral for 90 Days Active Metoprolol Tartrate 50 MG TAKE 1 TABLET BY MOUTH EVERY 12 HOURS Oral for 90 Days Active Vitamin D (Ergocalciferol) 1.25 MG (06130 UT) TAKE 1 CAPSULE BY MOUTH EVERY WEEK Oral for 84 Days Active metFORMIN HCl 500 MG TAKE 1 TABLET BY MO UTH TWICE DAILY Oral for 90 Days Active Olmesartan Medoxomil 40 MG TAKE 1 TABLET BY MOUTH DAILY Oral for 90 Days Active Trospium Chloride 20 MG TAKE 1 TABLET BY MOUTH TWICE DAILY Oral for 90 Days Active Sertraline HCl 100 MG 1.5 tablet Oral On ce a day for 30 days Active Social History Sex Assigned At : Social History Observation Description Sex Assigned At Female Encounters Encounter Location Date Provider Diagnosis [facility] [address] [place] [address] 07/31/2024 Jyoti Crowell Major depressive disorder, recurrent, moderate F33.1 ; Generalized anxiety disorder F41.1 and Single seizure R56.9 Assessments Encounter Date Diagnosis (ICD Code) Assessment Notes Treatment Notes Treatment Clinical Notes Section Notes 07/31/2024 Major depressive disorder, recurrent, moderate (ICD-10 - F33.1) SSRI/SNRI side effects discussed including but not limited to, gastric upset, nausea, vomiting, diarrhea and/or constipation, weight changes, sexual side effects including loss of libido, increased suicidal thoughts/behavio rs in children and young adults, and serotonin syndrome. History of seizures so hesitate to increase Wellbutrin; has been stable on Wellbutrin for some time. No seizure activity since 2010. 07/31/2024 Generalized anxiety disorder (ICD-10 - F41.1) 07/31/2024 Single seizure (ICD-10 - R56.9) one seizure 13 years ago (hemorrhagic stroke), sees neurologistmeek 07/31/2024 Other Increase sertraline to 150mg daily for mood, anxiety. Patient educated on all medications including potential benefits, side effects, risks. Educated on proper dosing schedule and importance of compliance. Plan Of Treatment Medication Medication Name Sig Start Date Stop Date Notes buPROPion HCl ER (XL) 150 MG 1 tablet in the morning Oral Once a day for 90 days Sertraline HCl 100 MG 1.5 tablet Oral On ce a day for 30 days Treatment Notes Assessment Notes Major depressive disorder, r ecurrent, moderate SSRI/SNRI side effects discussed including but not limited to, gastric upset, nausea, vomiting, diarrhea and/or constipation, weight changes, sexual side effects including loss of libido, increased suicidal thoughts/behaviors in children and young adults, and serotonin syndrome. History of seizures so hesitate to increase Wellbutrin; has been stable on Wellbutrin for some time. No seizure activity since 2010. Single seizure one seizure 13 years ago (hemorrhagic stroke), sees neurologist, gets keppra Other Increase sertraline to 150mg daily for mood, anxiety. Patient educated on all medications including potential benefits, side effects, risks. Educated on proper dosing schedule and importance of compliance. 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 D epression R ates depression 8/10 with 10 being most severe. Denies SI. . M ood lability n o hx veda. P sychosis n o hx psychosis. S uicidal ideation d enies.? Here for follow up. Previous patient of Donna. Sertraline was increased last apt. Patient reports she has not noticed a significant change in depressive symptoms. Continues to have feeling of hopelessness and helplessness. Although denies suicidal ideation. Reporting low mood, loss of interest, low energy. No side effects since increasing the sertraline. Continues to feel anxious, worried. Denies recent stressors. No panic attacks. Sleep is good, at leat 10 hours daily including naps. Appetite is fair. TELEHEALTH: pt at home in [place]. D epression screening: PHQ-9 L ittle interest or pleasure in doing things M ore than half the days, F eeling down, depressed, or hopeless M ore than half the days, T rouble falling or staying asleep, or sleeping too much S everal days, F eeling tired or having little energy N early every day, P oor appetite or overeating N ot at all, F eeling bad about yourself or that you are a failure, or have let yourself or your family down N ot at all, T rouble concentrating on things, such as reading the newspaper or watching television?Several days, M oving or speaking so slowly that other people could have noticed; or the opposite, being so fidgety or restless that you have been moving around a lot more than usual N ot at all, T houghts that you would be better off or of hurting yourself in some way N ot at all, T otal Score 9 , I nterpretation M ild Depression. I ntervention D epression Screening Findings P ositve, F ollow-Up for Depression M ental health treatment assessment, Patient follow-up to return when and if necessary, S uicide Risk Assessment Performed , A dditional Evaluation for Depression P sychiatric interview and evaluation, N pelon of the standardized tool used for adult depression screening: [facility]). P ast Psychiatric Hospitalizations: Previous psychiatric hospitalizations P revious Psychiatric Hospitalization N o. P ast History of Suicidal attempt H ave you ever attempted suicide in the past N o. Previous medications: fluoxetine. * ROS: P sychiatric: Patient denies a uditory / visual hallucinations, delusions, suicidal thoughts, veda, psychosis, panic attacks. P atient complains of a nxiety, depressed mood. C lizette Elder [facility] for details. * Medical History: * Medications: T akingbuPROPion HCl ER (XL) 150 MG Tablet Extended Release 24 Hour 1 tablet in the morning Oral Once a day Sertraline HCl 100 MG Tablet 1 tablet in the morning Oral Once a day , Notes to Pharmacist: d/c 50mgJanuvia 100 MG Tablet TAKE 1 TABLET BY MOUTH DAILY Oral Bydureon BCise 2 MG/0.85ML Auto-injector INJECT 2 MG UNDER THE SKIN ONCE WEEKLY Subcutaneous metFORMIN HCl 500 MG Tablet TAKE 1 TABLET BY MOUTH TWICE DAILY Oral Vitamin D (Ergocalciferol) 1.25 MG (28619 UT) Capsule TAKE 1 CAPSULE BY MOUTH EVERY WEEK Oral Trospium Chloride 20 MG Tablet TAKE 1 TABLET BY MOUTH TWICE DAILY Oral Olmesartan Medoxomil 40 MG Tablet TAKE 1 TABLET BY MOUTH DAILY Oral Omeprazole 20 MG Capsule Delayed Release TAKE 1 CAPSULE BY MOUTH DAILY Oral Metoprolol Tartrate 50 MG Tablet TAKE 1 TABLET BY MOUTH EVERY 12 HOURS Oral Folic Acid 1 MG Tablet TAKE 1 TABLET BY MOUTH DAILY Oral Levothyroxine Sodium 137 MCG Tablet TAKE 1 TABLET BY MOUTH DAILY Oral Gemfibrozil 600 MG Tablet TAKE 1 TABLET BY MOUTH TWICE DAILY Oral FeroSul 325 (65 Fe) MG Tablet TAKE 1 TABLET BY MOUTH TWICE DAILY Oral levETIRAcetam 500 MG Tablet Oral Medication List reviewed and reconciled with the patientTaking buPROPion HCl ER (XL) 150 MG Tablet Extended Release 24 Hour 1 tablet in the morning Oral Once a day Taking Sertraline HCl 100 MG Tablet 1 tablet in the morning Oral Once a day , Notes to Pharmacist: d/c 50mgTaking Januvia 100 MG Tablet TAKE 1 TABLET BY MOUTH DAILY Oral Taking Bydureon BCise 2 MG/0.85ML Auto-injector INJECT 2 MG UNDER THE SKIN ONCE WEEKLY Subcutaneous Taking metFORMIN HCl 500 MG Tablet TAKE 1 TABLET BY MOUTH TWICE DAILY Oral Taking Vitamin D (Ergocalciferol) 1.25 MG (32634 UT) Capsule TAKE 1 CAPSULE BY MOUTH EVERY WEEK Oral Taking Trospium Chloride 20 MG Tablet TAKE 1 TABLET BY MOUTH TWICE DAILY Oral Taking Olmesartan Medoxomil 40 MG Tablet TAKE 1 TABLET BY MOUTH DAILY Oral Taking Omeprazole 20 MG Capsule Delayed Release TAKE 1 CAPSULE BY MOUTH DAILY Oral Taking Metoprolol Tartrate 50 MG Tablet TAKE 1 TABLET BY MOUTH EVERY 12 HOURS Oral Taking Folic Acid 1 MG Tablet TAKE 1 TABLET BY MOUTH DAILY Oral Taking Levothyroxine Sodium 137 MCG Tablet TAKE 1 TABLET BY MOUTH DAILY Oral Taking Gemfibrozil 600 MG Tablet TAKE 1 TABLET BY MOUTH TWICE DAILY Oral Taking FeroSul 325 (65 Fe) MG Tablet TAKE 1 TABLET BY MOUTH TWICE DAILY Oral Taking levETIRAcetam 500 MG Tablet Oral Medication List reviewed and reconciled with the patient * Allergies: S HELLFISH DERIVED: Allergy - Onset Date 09/12/2023ilaudid: Allergy - Onset Date 09/12/2023Iodine: Allergy - Onset Date 09/12/2023Latex: Allergy - Onset Date 09/12/2023no[Allergies Verified] Objective: * Vitals: * Examination: P sychiatry: Appearance: w ell-groomed. Abnormal body movements: n one. Affect / mood: a ppropriate. Attention: g ood. Attitude: c ooperative. Homicidal ideation: n one. Suicidal ideation: n one. Degree of awareness of surroundings: w ithin normal limits.? Delusions: n o. Hallucinations: n o. Insight: g ood. Judgement: g ood. Orientation: a wake, alert and oriented x 3. Perceptual disorders: n o perceptual disorder noted. Psychomotor activity: w ithin normal range. Speech / language: n ormal rate, volume, and articulation (RVR), clear and coherent. Thought content: a ppropriate. Thought process: i ntact. Assessment: * Assessment: 1. M ajor depressive disorder, recurrent, moderate - F33.1 (Primary) 2 . G eneralized anxiety disorder - F41.1 3 . S jhon seizure - R56.9 Plan: * Treatment: 2. S jhon seizure Notes:one seizure 13 years ago (hemorrhagic stroke), sees neurologist, gets keppra 3. O thers Notes: Increase sertraline to 150mg daily for mood, anxiety. Patient educated on all medications including potential benefits, side effects, risks. Educated on proper dosing schedule and importance of compliance. * Procedure Codes: 9 6127 BEHAV ASSMT W/SCORE & DOCD/STAND [id number] VISIT COMPLEXITY INHERENT TO ONGOING CARE RELATED TO A PATIENT'S SINGLE, SERIOUS CONDITION OR A COMPLEX [id number] CLIN DEPRESSION SCREEN DOC * Follow Up: 2 Months (Reason: med follow up) * Billing Information: * Visit Code: [id number] OFFICE OUTPATIENT VISIT 25 MINUTES DETAILED HISTORY AND EXAM/MODERATE MEDICAL DECISION MAKING. * Procedure Codes: 00974 BEHAV ASSMT W/SCORE & DOCD/STAND INSTRUMENT. G2211 VISIT COMPLEXITY INHERENT TO ONGOING CARE RELATED TO A PATIENT'S SINGLE, SERIOUS CONDITION OR A COMPLEX CONDITION. G8431 CLIN DEPRESSION SCREEN DOC. 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 Previous patient of Donna. Sertraline was increased last apt. Patient reports she has not noticed a significant change in depressive symptoms. Continues to have feeling of hopelessness and helplessness. Although denies suicidal ideation. Reporting low mood, loss of interest, low energy. No side effects since increasing the sertraline. Continues to feel anxious, worried. Denies recent stressors. No panic attacks. Sleep is good, at leat 10 hours daily including naps. Appetite is fair. TELEHEALTH: pt at home in [place] Depression Rates depression 04/17 0 with 10 being most severe. Denies SI. Suicidal ideation denies Psychosis no hx psychosis Mood lability no hx veda Past Psychiatric Hospitalizations Previous psychiatric hospitalizations Previous Psychiatric Hospitalization: No Previous medications: fluoxetine Past History of Suicidal attempt Have yo u ever attempted suicide in the past: No Depression screening PHQ-9 Little inte rest or pleasure in doing things: More than half the days Feeling down, depressed, or hopeless: Mo re than half the days Trouble falling or staying asleep, or sl eeping too much: Several days Feeling tired or having little energy: N early every day Poor appetite or overeating: Not at all Feeling bad about yourself o r that you are a failure, or have let yourself or your family down: Not at all Trouble concentrating on thi ngs, such as reading the newspaper or watching television: Several days Moving or speaking so slowly that other people could have noticed; or the opposite, being so fidgety or restless that you have been moving around a lot more than usual: Not at all Thoughts that you would be b rylan off or of hurting yourself in some way: Not at all Total Score: 9 Interpretation: Mild Depression Intervention Depression Screening Findings: P ositve Follow-Up for Depression: [facility] treatment assessment, Patient follow-up to return when and if necessary Suicide Risk Assessment Performed: Additional Evaluation for De pression: Psychiatric interview and evaluation Name of the standardized too l used for adult depression screening:: Patient Health Questionnaire (PHQ-9) Examination Category Sub-Category Detail Notes Category Not es Psychiatry Appearance: well-groomed Attitude: cooperative Psychomotor activity: within normal rang e Abnormal body movements: none Attention: good Degree of awareness of surroundings: wit hin normal limits Orientation: awake, alert and gabriel ented x 3 Affect / mood: appropriate Speech / language: normal rate, volume, and articulation (RVR), clear and coherent Insight: good Judgement: good Thought process: intact Thought content: appropriate Perceptual disorders: no perceptual diso rder noted Suicidal ideation: none Homicidal ideation: none Delusions: no Hallucinations: no
--- OUTSIDE RECORDS SUMMARY | 2024-11-21 15:00 | XMS_ITS | Data Portability ---
Author Organization [place] - [facility], Main Office Address [address] [place] [address] Care Team Providers Care Executive Search Consultant Name Role Phone MILTON ALMANZAR Primary Care Provider MILTON ALMANZAR Referring Provider [phone] Assessment Encounter Date Assessment Date Assessment LastModified by Organization Details LastModified Time 03/29/2023 03/29/2023 HPI: Patient ret urns. Last time we saw her was in August of last year. She had Synvisc-One injections done both knees. She is not sure how much relief she gets from the injections. She has had cortisone in the past which do not do well for her. She has had history of hemorrhagic stroke and does not take anti-inflammatories. She was told to avoid anything that may thin her blood, the stroke happened in 2007. she takes 5 x-rays strength Tylenol as per day. Patient was in x-ray when her wants talk with me about his . He states that she is becoming less and less active throughout the day and is becoming more and more debilitated. He states he wants something done about her pain so that she can be a little bit more active. He wants her to have surgery, total knee replacement done so that she can have a more normal lifestyle. Overall she is very minimal ambulator. He described to me her daily activity level which involves getting up for breakfast and then sitting in a recliner for the better part of the day and then going to bed for napping and then getting up for dinner. He provides all of her meals for her. I talked with him about caloric intake and the fact that she is so minimally active she is going have to severely decrease her caloric intake as there was any chance of her losing weight. I mentioned to him about seeing a dietitian which they have done this in the past and he states that the dietitians had a lot of crazy ideas and did not feel that these were going to be helpful. I discussed with him that with her BMI at 50 which is where was measured in August of last year she is not a surgical candidate. She has high risk of medical as well as surgical complications with her weight being that high as well as being diabetic and a previous history of stroke. Her last A1c was 6.9 C for diabetes is controlled. Patient wished to have viscosupplementation injections again today. Unfortunately her insurance needs prior authorization therefore we can not give her the injections today. We will work on obtaining prior authorization and get her back in as quickly as possible for injections in both her knees. 20 minutes was spent in discussion with patient as well as family today. Not available 03/29/2023 15:48:22 04/13/2023 04/13/2023 HPI: Patient ret urns. We got prior authorization from insurance for or Synvisc-One injections in she is here for those. 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 She had Synvisc-One injections 6 months ago did give her some benefit. She has tried cortisone in the past without any improvement of her symptoms. Physical exam: 77-year-old female alert pleasant. She is morbidly obese. She is in a wheelchair. She has mild effusions in both knees. Range of motion is from 7-125 degrees bilaterally. Moderate tenderness over both medial joint lines to palpation. After ChloraPrep was used on the skin to mg of 0.5% ropivacaine was used to inject soft tissue to the lateral knee to the same area Synvisc-One was injected into both knees through a 20 gauge needle risk of infection discussed. Impression: 77-year-old female who has severe medial compartment osteoarthritis. She is morbidly obese and not a surgical candidate. Her is trying to work on getting her weight down. She will need to be under 220 lb before surgery can be offered to her we discussed that as well. They would like to come back in 6 months for repeat injections with the Synvisc 1 we will set this up. 20 minutes was spent in treatment patient more than half of this in [id number] conversation Not available 04/13/2023 16:37:13 11/09/2023 11/09/2023 HPI: Patient gabrielle amador. She is here for Monovisc injections into both of her knees. Last shots were a little over 6 months ago. She does not feel she got much relief from the injections but does wish to repeat them. She has severe osteoarthritis in both knees. She has declined formal therapy. She has not worked on losing any weight. Physical exam 78-year-old female she is alert. She is in a wheelchair. She is a minimal ambulator. She has mild effusions in both knees. She has about a 15 degree flexion contracture to both knees. Mild chronic edema in both lower extremities. No redness or warmth noted. after Betadine and alcohol prep Monovisc injection was given into both knees without incident. impression: Patient has severe osteoarthritis in both knees. She and her both know that these can be repeated every 6 months on an as-needed basis. He did ask where her weight would need to be to proceed with surgery on the knees and I advised them she would need to be under 210 lb. Not available 11/09/2023 16:31:54 10/30/2024 10/30/2024 The patient has severe primary osteoarthritis both knee joints as described. Under sterile conditions I injected both knee joints in the office today with Synvisc-One injections. The patient tolerated both injections well. We talked about further treatment options from here she is not a good candidate for total knee arthroplasty. We will give it a couple months see how she does if she wants to return we could try cortisone I discussed this today with the patient however she states cortisone never gave her any good relief in the past. The patient and her inquired about total knee arthroplasty however I have advised them that her BMI is too high and she would need to lose a significant amount of weight to qualify. They argued that she can not get up and move around and therefore can not lose weight. We did talk about the fact that oral intake has quite a bit to do with it as well and if she could reduce her caloric daily intake this could give her some good results. Her was not optimistic about that. We talked about the risks associated with total knee arthroplasty for the patient with her current medical status. Unfortunately our options are very limited due to her weight and medical status and activity level. The patient and her voiced understanding and agreed with the above plan they will call for any further problems difficulties or questions. They declined oral medication due to the risks and stated this really does not give him much relief either. She can take Tylenol extra-strength if needed. [email or web address] Not available 10/30/2024 15:37:19 Plan of Treatment Reminders Order Date Submit Date Provider Last Modified By Organization Details Last Modified Time Details Appointments None recorded. Lab None recorded. Referral None recorded. Procedures injection/a spiration joint/bursa (PROC) - in office procedure, administere d by provider 2024 025 [email or web address] In-Office Order, Internal Use Only DO Not Attach Compendium DO Not Attach Compendium, Do Not Delete/merge, [id number] 5 14:28:46 knee aspiration/ injection (PROC) 2023 024 [email or web address] In-Office Order, Internal Use Only DO Not Attach Compendium DO Not Attach Compendium, Do Not Delete/merge, [id number] 4 15:05:26 knee aspiration/ injection (PROC) 2022 023 [email or web address] In-Office Order, Internal Use Only DO Not Attach Compendium DO Not Attach Compendium, Do Not Delete/merge, [id number] 3 15:04:16 Surgeries None recorded. Imaging XR, knee 2022 023 [email or web address] [facility], [address], [place], [address], 3 15:01:58 Medication Orders Monovisc 88 mg/4 mL intra-artic ular syringe 2023 024 [facility], [address], [place], [place], [id number], 4 15:16:41 Synvisc-One 48 mg/6 mL intra-artic ular syringe 2022 023 [email or web address], [address], [place], [place], [id number], 4 15:13:42 ropivacaine (PF) 5 mg/mL (0.5 %) injection solution 2022 023 [email or web address] [facility], [address], [place], [place], [phone], 4 15:13:52 Patient TargetsNo targets recorded. Patient Instructions Encounter Date Encounter Id Patient Instructions Last Modified By Organization Details Last Modified Time 03/29/2023 [id number] viscosupplementa tion treatment* - bilateral synvisc or monovisc [email or web address] Not available 04/04/2023 14:47:39 Reason for Referral None Reported. Results Created Date Observation Date Name Description Value Unit Range Abnormal Flag Note LastModifiedBy Organization Detail LastModifiedTime 08/30/20 22 XR, knee No observ ation record ed. [id number] [facility] [address], [place], [address], 11/15/2022 13:43:49 03/29/20 23 XR, knee No observ ation record ed. s_gmg [facility] [address], [place], [address], 03/29/2023 15:40:50 10/17/19 25 10/16/2024 XR, knee, 3 view No observ ation record ed. [email or web address] [facility] [address], [place], [address], 10/21/2024 09:21:43 10/30/19 25 10/16/2024 XR, knee No observ ation record ed. [email or web address] Not Available 2024 16:27:08 Result Notes None recorded. Problems Name Problem SNOMED Code Status Onset Date Resolution Date Notes Provider Name and Address Organization Details Recorded Time Wrist joint pain Active Not Available [facility] 3 13:38:16 Partial thickness rotator cuff tear 793856022 Active Not Available [facility] 3 13:38:16 Osteoarthr itis of knee 024590615 Active Not Available [facility] 3 13:38:16 Shoulder joint pain 233826835 Active Not Available [facility] 3 13:38:16 Patel's neuroma of right foot 6244595494178 08 Active 2019 Not Available [facility] 3 13:38:17 Osteoarthr itis 580595611 Active Not Available [facility] 3 13:38:17 Foot pain 93723783 Active 2019 Not Available [facility] 3 13:38:17 Diabetes mellitus 49626637 Active 2019 Not Available [facility] 3 13:38:17 Pain of right knee joint 8867752757639 00 Active 2022 CHRISTIANO Casas null, [facility] 3 15:02:32 Osteoarthr itis of right knee joint 1550040640241 00 Active 2022 Loyda Neal null, [facility] 3 15:27:19 Bilateral osteoarthr itis of knees 3597388703845 07 Active 2022 CHRISTIANO Casas null, [facility] 3 14:59:32 Pain of bilateral knee joints 6767432356511 04 Active 2024 Georgia Toro CNA null, [facility] 5 14:28:23 Problem Notes None recorded. Procedures Surgical History Date Name Laterality Status Provider Name and Address Organization Details Recorded Time 1 Brain Surgery completed Not Available [facility] 11/15/2022 13:36:26 Imaging Results Imaging Date Name Status [facility] Details LastModified Time 08/30/2022 XR, knee completed [id number] [facility] [address], [place], [address], 11/15/2022 13:43:49 03/29/2023 XR, knee completed [facility] [address], [place], [address], 03/29/2023 15:40:50 10/16/2024 XR, knee, 3 view completed [email or web address] [facility] [address], [place], [address], 10/21/2024 09:21:43 10/16/2024 XR, knee completed [email or web address] Information no t available 10/30/2024 16:27:08 Procedure Notes None recorded. Medical Equipment None Reported. Allergies Allergen ID Allergen Name Allergen Category Reaction Reaction Severity Criticality Documentation Date Start Date Code Code System Note Provider Name and Address Organization Details Recorded Time 63121 shellfish derived food,medi cation Not available Not available Not available 11/15/2022 46128 UNK Not Available [facility] 3 13:43:47 98142 latex environme nt,medica tion Not available Not available Not available 11/15/2022 43711 91 RxNorm Not Available [facility] 3 13:43:47 64974 Iodinated contrast media (substanc e) medicatio n nausea severe Not available 11/15/2022 88728 2004 SNOMED Not Available [facility] 3 13:43:47 63314 Dilaudid medicatio n nausea severe Not available 11/15/2022 43107 3 RxNorm Not Available [facility] 3 13:43:47 Medications Name Sig Start Date Stop Date Status Note LastModified by Organization Details LastModified Time fluoxetine 40 mg capsule TAKE 1 CAPSULE BY MOUTH EVERY DAY 09/02 completed Not Available Not Available Not Available amoxicillin 500 mg capsule TAKE 1 CAPSULE PO Q 8 HOURS UNTIL ALL TAKEN 08/21 completed Not Available Not Available Not Available metformin 500 mg tablet TAKE 1 TABLET BY MOUTH TWICE DAILY active Not Available Not Available No t Available neomycin-po lymyxin-hyd rocort 3.5 mg/mL-10,00 0 unit/mL-1 % ear solution 08/21 completed Not Available Not Available Not Available levothyroxi ne 137 mcg tablet TAKE 1 TABLET BY MOUTH DAILY 09/02 completed Not Available Not Available Not Available venlafaxine ER 75 mg capsule,ext ended release 24 hr 08/21 completed Not Available Not Available Not Available pravastatin 40 mg tablet 09/02 completed Not Available Not Available Not Available fluconazole 150 mg tablet 08/30 completed Not Available Not Available Not Available levetiracet am 500 mg tablet TAKE 1 TABLET BY MOUTH TWICE DAILY 09/02 completed Not Available Not Available Not Available hydrocodone 5 mg-acetamin ophen 325 mg tablet 04/25 completed Not Available Not Available Not Available sertraline 100 mg tablet TAKE 1 AND 1/2 TABLETS BY MOUTH DAILY active Not Available Not Available No t Available venlafaxine ER 150 mg capsule,ext ended release 24 hr TK ONE C PO D 08/21 completed Not Available Not Available Not Available fluocinonid e 0.05 % topical ointment 04/25 completed Not Available Not Available Not Available valacyclovi r 500 mg tablet TAKE 1 TABLET BY MOUTH THREE TIMES DAILY active Not Available Not Available No t Available sulfamethox azole 800 mg-trimetho prim 160 mg tablet TAKE 1 TABLET BY MOUTH EVERY 12 HOURS 08/30 completed Not Available Not Available Not Available peg-electro lyte solution 420 gram oral solution active Not Available Not Available Not Available glimepiride 2 mg tablet 08/21 completed Not Available Not Available Not Available levothyroxi ne 100 mcg tablet 08/21 completed Not Available Not Available Not Available pravastatin 10 mg tablet TAKE 1 TABLET BY MOUTH DAILY 09/02 completed Not Available Not Available Not Available Kenalog 10 mg/mL suspension for injection In office injection administe red by the provider 08/08 completed [facility]: 0003- 0494- 20 Not Available Not Available Not Available gemfibrozil 600 mg tablet TAKE 1 TABLET BY MOUTH TWICE DAILY 09/02 completed Not Available Not Available Not Available cephalexin 500 mg capsule 08/21 completed Not Available Not Available Not Available erythromyci n 5 mg/gram (0.5 %) eye ointment 08/21 completed Not Available Not Available Not Available levothyroxi ne 125 mcg tablet TK 1 T PO QD 04/25 completed Not Available Not Available Not Available clotrimazol e-betametha sone 1 %-0.05 % topical cream APPLY CREAM TOPICALLY TWICE DAILY. THEN USE OTC ZINC OXIDE PASTE NEEDED. 09/02 completed Not Available Not Available Not Available glimepiride 4 mg tablet TK 1 T PO BID 08/21 completed Not Available Not Available Not Available diltiazem ER (XR/XT) 120 mg capsule,ext ended release 24 hr, controlled 08/21 completed Not Available Not Available Not Available metoprolol tartrate 50 mg tablet TAKE 1 TABLET BY MOUTH EVERY 12 HOURS 09/02 completed Not Available Not Available Not Available Synthroid 75 mcg tablet 08/21 completed Not Available Not Available Not Available sertraline 25 mg tablet 10/30 completed Not Available Not Available Not Available omeprazole 20 mg capsule,del ayed release TAKE 1 CAPSULE BY MOUTH DAILY 09/02 completed Not Available Not Available Not Available diltiazem CD 120 mg capsule,ext ended release 24 hr TAKE 1 CAPSULE BY MOUTH DAILY active Not Available Not Available No t Available folic acid 1 mg tablet TAKE 1 TABLET BY MOUTH DAILY 09/02 completed Not Available Not Available Not Available pravastatin 20 mg tablet 09/02 completed Not Available Not Available Not Available ergocalcife rol (vitamin D2) 1,250 mcg (50,000 unit) capsule TAKE 1 CAPSULE BY MOUTH EVERY 14 DAYS active Not Available Not Available No t Available fluoxetine 20 mg capsule TAKE 1 CAPSULE BY MOUTH DAILY FOR 1 WEEK THEN STOP active Not Available Not Available No t Available fluticasone propionate 50 mcg/actuati on nasal spray,suspe nsion SHAKE LQ AND U 2 SPRAYS IEN QD 08/21 completed Not Available Not Available Not Available sertraline 50 mg tablet TAKE 1 TABLET BY MOUTH DAILY IN THE MORNING AFTER 1 WEEK OF 25 MG active Not Available Not Available No t Available levothyroxi ne 112 mcg tablet TK 1 T PO ONCE D 08/21 completed Not Available Not Available Not Available olmesartan 40 mg tablet TAKE 1 TABLET BY MOUTH DAILY 09/02 completed Not Available Not Available Not Available Pneumovax-2 3 25 mcg/0.5 mL injection syringe ADM 0.5ML IM UTD 08/08 completed Not Available Not Available Not Available escitalopra m 10 mg tablet 04/25 completed Not Available Not Available Not Available escitalopra m 20 mg tablet TK 1 T PO QHS 04/25 completed Not Available Not Available Not Available moxifloxaci n 0.5 % eye drops INSTILL 1 DROP IN RIGHT EYE FOUR TIMES DAILY FOR 1 WEEK 10/30 completed Not Available Not Available Not Available bupropion HCl XL 150 mg 24 hr tablet, extended release TAKE 1 TABLET BY MOUTH DAILY IN THE MORNING active Not Available Not Available No t Available nitrofurant oin monohydrate /macrocryst als 100 mg capsule TAKE 1 CAPSULE BY MOUTH EVERY 12 HOURS FOR 5 DAYS 08/30 completed Not Available Not Available Not Available trospium 20 mg tablet TAKE 1 TABLET BY MOUTH TWICE DAILY 09/02 completed Not Available Not Available Not Available duloxetine 30 mg capsule,del ayed release TAKE 1 CAPSULE BY MOUTH EVERY DAY FOR 7 DAYS 04/25 completed Not Available Not Available Not Available duloxetine 60 mg capsule,del ayed release TAKE 1 CAPSULE BY MOUTH EVERY DAY AT BEDTIME 04/25 completed Not Available Not Available Not Available B-12 09/02 completed Not Available Not Available Not Available lidocaine (PF) 10 mg/mL (1 %) injection solution In office injection administe red by the provider 08/08 completed [facility]: 0409- 4276- 17 Not Available Not Available Not Available BD Ultra-Fine Short Pen Needle 31 gauge x 5/16 USE THREE TIMES DAILY 05/09 completed Not Available Not Available Not Available Januvia 100 mg tablet TAKE 1 TABLET BY MOUTH DAILY active Not Available Not Available No t Available FreeStyle Lite Strips TEST QID 08/21 completed Not Available Not Available Not Available FeroSul 325 mg (65 mg iron) tablet TAKE 1 TABLET BY MOUTH TWICE DAILY active Not Available Not Available No t Available Lantus Solostar U-100 Insulin 100 unit/mL (3 mL) subcutaneou s pen INJ 10 UNI SC D 04/25 completed Not Available Not Available Not Available Humalog KwikPen (U-100) Insulin 100 unit/mL subcutaneou s INJ 4 TO 12 UNITS SC WITH LIZA AND INJ 12 TO 22 UNITS SC IN THE LATE AFTERNOON 08/21 completed Not Available Not Available Not Available Synvisc-One 48 mg/6 mL intra-artic ular syringe inject each knee once for bilateral knee osteoarth ritis active Not Available Not Available No t Available OneTouch Delica Lancets 33 gauge TEST QID UTD 05/09 completed Not Available Not Available Not Available Vitamin B-12 5,000 mcg sublingual tablet DIS 1 T UNT QD 09/02 completed Not Available Not Available Not Available Viibryd 40 mg tablet 08/21 completed Not Available Not Available Not Available ropivacaine (PF) 5 mg/mL (0.5 %) injection solution in office 09/02 completed [facility] [address]6320 -064- 01 Not Available Not Available Not Available Brintellix 20 mg tablet 08/21 completed Not Available Not Available Not Available Monovisc 88 mg/4 mL intra-artic ular syringe in office 09/[address] [facility]:5 9676- 0820- 01 Not Available Not Available Not Available Fluzone High-Dose 5054-1334 (PF) 180 mcg/0.5 mL intramuscul ar syringe active Not Available Not Available N ot Available Bydureon BCise 2 mg/0.85 mL subcutaneou s auto-inject or INJECT 2 MG UNDER THE SKIN ONCE WEEKLY active Not Available Not Available No t Available OneTouch Ultra Blue Test Strip active Not Available Not Available N ot Available Fluzone High-Dose (PF) 180 mcg/0.5 mL intramuscul ar syringe ADM 0.5ML IM UTD active Not Available Not Available No t Available Fluzone High-Dose (PF) 180 mcg/0.5 mL intramuscul ar syringe PHARMACIS T ADMINISTE RED IMMUNIZAT ION ADMINISTE RED AT TIME OF DISPENSIN G active Not Available Not Available No t Available Fluzone High-Dose Quad (PF) 240 mcg/0.7 mL IM syringe ADM 0.7ML IM UTD 05/09 completed Not Available Not Available Not Available Vitals Date Recorded Body height Provider Name an d Address Organization Details Last Updated DateTime 09/14/2022 157.48 cm Not Available [facility] 3 13:37:22 Date Recorded Body height Provider Name an d Address Organization Details Last Updated DateTime 03/29/2023 157.48 cm Rosa Triana [facility] [email or web address] [facility] 03/29/2023 15:01:55 Date Recorded Body height Provider Name an d Address Organization Details Last Updated DateTime 04/13/2023 157.48 cm Rosa Triana [facility] [email or web address] [facility] 04/13/2023 14:59:13 Date Recorded Body height Provider Name an d Address Organization Details Last Updated DateTime 11/09/2023 157.48 cm Rosa Triana [facility] [email or web address] [facility] 11/09/2023 15:00:05 Date Recorded Body height Body mass index (BMI) Body weight Provider Name and Address Organization Details Last Updated DateTime 10/30/2024 157.48 cm 42.1 kg/m2 576799.25 g Damari Myles [facility] [email or web address] [facility] 10/30/2024 14:41:18 Social History Question Answer Notes LastModified by Organizat ion Details LastModified Time Tobacco Smoking Status Never Smoker Not Available [facility] 11/15/2022 13:36:25 What Is Your Level Of Alcohol Consumption? None [id number] Information not available 11/15/2022 Have You Recently Traveled Abroad? No [id number] Information not available 11/15/2022 Sex: Unknown Functional Status None recorded. Mental Status None recorded. Family History Relationship Description Onset Age of this Age Resolved Age Notes LastModified by Organization Details LastModified Time Father Heart disease [id number] Not available 11/15/2022 13:36:26 Father Hypertensive disorder [id number] Not available 11/15/2022 13:36:26 Mother Heart disease [id number] Not available 11/15/2022 13:36:26 Brother Heart disease [id number] Not available 11/15/2022 13:36:26 Brother Hypertensive disorder [id number] Not available 11/15/2022 13:36:27 Notes:blood clots in legs-si sters Medical History Condition Response ARTHRITIS Y DIABETES, TYPE Y HAVE YOU BEEN HOSPITALIZED OR SEEN IN THE MEDICAL CENTER IN THE PAST YEAR ? Y BLOOD CLOTS Y HYPERTENSION Y STROKE/TIA Y Gynecological HistoryNo gynecological history recorded. Obstetrics History GPAL:G 0 P 0 0 0 0 Past Encounters Encounter ID Performer Location Encounter Start Date Encounter Closed Date Diagnosis/Indication Diagnosis SNOMED-CT Code Diagnosis ICD10 Code Diagnosis Note [id number] [facility] [address] [place] [address] 04/25/2021 00:00:00 04/25/2021 17:20:54 [id number] [facility] [address] [place] [address] 05/09/2021 00:00:00 05/09/2021 16:50:09 [id number] [facility] [address] [place] [address] 06/27/2021 00:00:00 07/03/2021 13:44:38 [id number] [facility] [place] [address] [place] [address] 07/18/2021 00:00:00 07/19/2021 16:38:15 [id number] [facility] [place] [address] [place] [address] 08/08/2021 00:00:00 08/08/2021 16:11:05 [id number] [facility] [place] [facility] [address] [place] [address] 10/27/2021 00:00:00 10/31/2021 10:04:14 [id number] [facility] [place] [address] [place] [address] 01/26/2022 00:00:00 01/29/2022 16:51:58 [id number] [facility] [place] [facility] [address] [place] [address] 05/11/2022 00:00:00 05/14/2022 14:53:40 [id number] [facility] [place] [facility] [address] [place] [address] 08/07/2022 00:00:00 08/08/2022 10:18:25 [id number] [facility] [place] [facility] [address] [place] [address] 08/30/2022 00:00:00 08/30/2022 15:51:31 [id number] [facility] [address] [address] 09/14/2022 00:00:00 09/14/2022 14:19:22 [id number] JUD Cortes [facility] [address] [address] 03/29/2023 14:53:55 03/29/2023 17:07:35 Pain of right knee joint [id number] 40625 M25.561 Osteoarthr itis of right knee joint [id number] 00741 M17.11 Bilateral osteoarthritis of knees [id number] 27568 M17.0 [id number] JUD Cortes [facility] [place] [facility] [address] [place] [address] 04/13/2023 14:53:59 04/16/2023 09:51:53 Bilateral osteoarthritis of knees [id number] 84777 M17.0 [id number] JUD Cortes [facility] [place] [facility] [address] [place] [address] 11/09/2023 14:48:23 11/12/2023 10:00:41 Bilateral osteoarthritis of knees [id number] 41767 M17.0 [id number] JUD Sterling [facility] [place] [facility] [address] [place] [address] 10/30/2024 14:22:51 10/30/2024 15:05:47 Bilateral osteoarthritis of knees [id number] 80324 M17.0 Pain of bi lateral knee joints [id number] 76631 M25.561 M25.562 Health Concerns Section Related Observation LastModified by Organization Detai ls LastModified Time None Recorded Concern Status LastModified by Organization Details LastModified Time None Recorded Advance Directives Directive None Recorded Payers Encounter Date Sequence Insurance Name Policy Number Policy Gonzalez Covered Member ID Gonzalez Member ID Guarantor Name 03/29/2023 1 [employer] (MEDICARE REPLACEMENT PPO) [id number] 1 Vandana Bolden Aziza [id number] Vandana J Aziza 04/13/2023 1 [employer] (MEDICARE REPLACEMENT PPO) [id number] Vandana Ervin [id number] Vandana Ervin 11/09/2023 1 [employer] (MEDICARE REPLACEMENT PPO) [id number] 1 Vandana Bolden Aziza [id number] Vandana Ervin 10/30/2024 1 [employer] (MEDICARE REPLACEMENT PPO) [id number] 1 Vandana Bolden Aziza [id number] Vandana Ervin Notes Date Note Type Note Provider Name and Address Organization Details Recorded Time 10/30/2024 text/html Patient returns we have not seen her for 1 year now. The patient lives in nursing facility is essentially wheelchair-bound because of her medical issues obesity age and debilitation. She has severe primary osteoarthritis in both knees. She has tried cortisone which has not given her any relief in the past she is not really a good candidate for total knee arthroplasty. Apparently she has gained weight over the last year she is now 5 ft 3 in tall 230 lb. She has done some therapy at the nursing facility but really can not tolerate much of that because of her knee pain. She comes in today with her who is requesting gel shot injections both knees for her. The patient would like to proceed. Denies any new trauma or injury to either knee no erythema heat swelling effusion or signs of infection. She reports the pain about an 8 on a scale of 1-10 has start-up pain rest pain and night pain keeps her awake at night really can not walk more than a few steps. She has been told before that she would have to lose a significant amount of weight to qualify for total knee arthroplasty and be able to get up and be more active but she does not appear to have achieve these goals. She is aware that she may not get good relief from the gel shot injections but at this point she and her would like to try anything they can to see if they can get her some mild relief anyway. Today they refused new x-rays they did have some done in the [facility] recently that were supposed to be sent to us however only the report was sent. And only have 1 knee. The report shows severe degenerative changes with wwki-zy-grzv medial compartment osteoarthritis. This coincides with her previous x-rays done in August of 2022 these reviewed today in detail with the patient and her . She has varus deformities both knees with vgds-yh-rwkw changes in the medial compartments and also hdvk-ol-rkye changes in the patellofemoral articulations with large marginal osteophytes medially and laterally. The patient and her did not feel like she could stand for the x-rays and they would rather skipped the x-rays because they do not think it would show any new significant findings I do have the report from her left knee which did not show any changes. New past medical history sheet was reviewed and signed on the intake sheet of today's date drug allergies current medications family social history previous surgical history 10 point review of systems was reviewed and discussed in detail today with the patient and her . JUD Sterling [address] [facility], [facility] [address], [place], [address], [facility] 10/30/2024 15:37:28 OBGyn Episode No OBEpisode recorded.
--- OUTSIDE RECORDS SUMMARY | 2024-11-21 15:00 | XMS_ITS | Patient Health Record ---
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 President Of Product Marketing Name Role Phone ROBIN GUERRA Unavailable [phone] Preston Goetz Unavailable Unavailable Allergies Allergen (clinical drug ingredient) Drug/Non Drug Allergy documented on EMR Reaction Allergy Type Onset Date Status Shellfish (FN) Shellfish (uncoded) Unknown Allergy 02/11 active Iodine Unknown Drug Allergy 02/11/2015 active Latex Latex Unknown Allergy 02/11/2015 active Reason For Referral No Information Encounters Encounter Location Date Provider Diagnosis [facility] [address] [place] [id number] 01/14/2024 ROBIN SNOOK Tinea unguium B35.1 ; Pain in right toe(s) M79.674 ; Pain in left toe(s) M79.675 ; 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, bilateral legs I70.213 and Type 2 diabetes mellitus with other circulatory complications E11.59 [facility] [address] [place] [address] [id number] 05/12/2024 ROBIN SNOOK Tinea unguium B35.1 ; Pain in right toe(s) M79.674 ; Pain in left toe(s) M79.675 ; 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, bilateral legs I70.213 and Type 2 diabetes mellitus with other circulatory complications E11.59 [facility] [address] [place] [address] [id number] 08/25/2024 ROBIN SNOOK Tinea unguium B35.1 ; Pain in right toe(s) M79.674 and Pain in left toe(s) M79.675 Assessments Encounter Date Diagnosis (ICD Code) Assessment Notes Treatment Notes Treatment Clinical Notes Section Notes 01/14/2024 Tinea unguium (ICD-10 - B35.1) NAIL DEBRIDEMENT: Nails 1-5 Bilateral were debrided extensively with nail nippers and emery board, reducing length and girth to pink healthy tissue with any subungual debris and necrotic tissue removed 01/14/2024 Pain in right toe(s) (ICD-10 - M79.674) 05/12/2024 Tinea unguium (ICD-10 - B35.1) NAIL DEBRIDEMENT: Nails 1-5 Bilateral were debrided extensively with nail nippers and emery board, reducing length and girth to pink healthy tissue with any subungual debris and necrotic tissue removed 05/12/2024 Pain in right toe(s) (ICD-10 - M79.674) 08/25/2024 Tinea unguium (ICD-10 - B35.1) FUNGAL [...] in left toe(s) (ICD-10 - M79.675) 05/12/2024 Pain in left toe(s) (ICD-10 - M79.675) 01/14/2024 Pain in left toe(s) (ICD-10 - M79.675) 01/14/2024 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 The patient was instructed to check his feet daily to report any problems or signs of infection immediately. The patient was provided written information on Diabetic Foot Care as well as the Amputation Prevention Guide. 05/12/2024 Type 2 diabetes mellitus with other circulatory complications (ICD-10 - E11.59) Diabetic Foot Care: The patient was educated on diabetes and the lower extremity. The patient was instructed to check his feet daily to report any problems or signs of infection immediately. The patient was provided written information on Diabetic Foot Care as well as the Amputation Prevention Guide. Plan Of Treatment Next Appt Details Provider Name:ROBIN GUERRA, 02:40:00 PM, [address], [facility], [place], [place], [id number], Insurance Providers Payer Name Payer Address Payer Phone Subscriber Number Group Number Insured Name Patient Relationship to Insured Coverage Start Date Coverage End Date [employer] [address] [place] [phone] [id number] MARCO A ROBBINS Self - patient is the insured
--- OUTSIDE RECORDS SUMMARY | 2024-11-21 15:00 | XMS_ITS | Clinical Summary ---
Author Organization [facility] Physician Office Building [address] [place] [id number] Care Team Providers Care [employer] Faculty Member Name Role Phone Dmaari Hall MD Unavailable [phone] Apolinar Ortiz OD Unavailable [phone] Preston Goetz DO Primary Care Provider [phone] Allergies Active Allergy Reactions Criticality Noted Date Comments Hydromorphone Headache Low 08/21/2019 Iodine Other (See comments) Low 09/27/2020 Patient feels like blood is on fire Latex Rash Medium 01/03/2011 Shellfish Derived Unknown 05/15/2019 Medications olmesartan (BENICAR) 40 mg tablet 9 Active metoprolol (LOPRESSOR) 50 mg tablet Take 1 tablet (50 mg total) by mouth 2 (two) times a day 1 9 Active omeprazole (PriLOSEC) 20 mg capsule TK 1 C PO QD AC 3 9 Active metFORMIN (GLUCOPHAGE) 500 mg tablet TK 1 T PO BID WITH THE MORNING AND ARTHUR MEAL 2 9 Active gemfibrozil (LOPID) 600 mg tablet TK 1 T PO QD 30 MIN B THE MORNING AND ARTHUR MEAL 2 9 Active folic acid (FOLVITE) 1 mg tablet TK 1 T PO QD 3 9 Active FLUoxetine (PROzac) 40 mg capsule TK 1 C PO ONCE A DAY 1 9 Active cyanocobalamin, vitamin B-12, 5,000 mcg tablet, sublingual Vitamin B-12 5,000 mcg sublingual tablet DIS 1 T UNT QD Active blood glucose diagnostic strip FreeStyle Lite Strips TEST QID Active fexofenadine (ELMIRA) 180 mg tablet Take 1 tablet (180 mg total) by mouth daily Active acetaminophen (TYLENOL) 500 mg tablet Take 1 tablet (500 mg total) by mouth every 6 (six) hours as needed for pain 1000 mg Three times daily Active diphenhydrAMINE (BENADRYL) 25 mg capsule Take 1 tablet/capsule (25 mg total) by mouth every 6 (six) hours as needed for itching Active levothyroxine (SYNTHROID) 137 mcg tablet Take 1 tablet (137 mcg total) by mouth daily Active buPROPion XL (WELLBUTRIN XL) 150 mg 24 hr tablet Take 1 tablet (150 mg total) by mouth every morning 1 Active ergocalciferol (VITAMIN D) 50,000 unit capsule Take 1 capsule (50,000 Units total) by mouth 1 Active clotrimazole-betam ethasone (LOTRISONE) cream APPLY CREAM TOPICALLY TWICE DAILY. THEN USE OTC ZINC OXIDE PASTE NEEDED. 3 Active Bydureon BCise 2 mg/0.85 mL auto-injectorIndic ations:type 2 diabetes mellitus Inject 2 mg under the skin once a week 10.2 mL 3 4 025 Active trospium (SANCTURA) 20 mg tablet Take 1 tablet (20 mg total) by mouth 2 (two) times a day 4 Active SITagliptin phosphate (Januvia) 100 mg tablet TAKE 1 TABLET BY MOUTH DAILY 90 tablet 1 4 Active pravastatin (PRAVACHOL) 40 mg tabletIndications: Mixed diabetic hyperlipidemia associated with type 2 diabetes mellitus (HCC) TAKE 1 TABLET(40 MG) BY MOUTH DAILY 90 tablet 3 4 Active sertraline (ZOLOFT) 25 mg tablet 4 Active levETIRAcetam (KEPPRA) 500 mg tabletIndications: 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 Clinically & biochemically euthyroid. Managed by PCP. Assessment & Plan (05/29/2023 2:38 PM CDT): Chronic, well-controlled Update TFTs Continue levothyroxine at current Class 3 severe obesity due t o excess calories with serious comorbidity and body mass index (BMI) of 45.0 to 49.9 in adult 11/21/2022 Assessment & Plan (11/21/2022 2:28 PM SALVAGE LABORER): Discussed healthy diet and importance of regular physical activity (20- 30min/day, 150min/wk). Limited activity s/p CVA 2010, some L sided weakness remains. 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 Her examination appears similar to prior descriptions in [facility] prior medical records. 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 Her current examination appears similar to that described in prior [facility] records. She reports no seizures over the past year while taking levetiracetam 500 mg b.i.d.. I have renewed her levetiracetam is presently scheduled and I will see her back in a year. 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 As the tremors non disabling and is in her non dominant side medical intervention for the tremors not presently necessary. Mixed diabetic hyperlipidemi a associated with type 2 diabetes mellitus 10/07/2019 Assessment & Plan (02/21/2024 3:59 PM CDT): Chronic problem, not at goal on Pravastatin 40mg, gemfibrozil 600mg bid Last lipid panel: 02/27/23 EED=266, UD=349. Will update labs today. Verified phone #/address to contact re: results. Assessment & Plan (05/29/2023 2:36 PM CDT): LDL cholesterol not at goal LDL cholesterol goal should be under 70 in a patient with history of stroke Increase pravastatin from 20 to 40 mg daily Assessment & Plan (02/27/2023 2:24 PM CDT): Chronic problem, not at goal on Pravastatin 20mg daily, gemfibrozil 600mg bid Last lipid panel: 12/13/21 DXN=879, TW=469. Will update labs today. Verified phone #/address to contact re: results. Assessment & Plan (11/21/2022 2:23 PM SALVAGE LABORER): Chronic problem, not at goal on Pravastatin 20mg. Last lipid panel: 12/13/21 MID=830, UQ=294. Increase pravastatin from 10mg to 20mg daily based on 12/13/21 lab results. Will update labs today. Verified phone #/address to contact re: results. Assessment & Plan (05/18/2022 3:03 PM CDT): Chronic problem. On statin therapy, no changes. Assessment & Plan (12/13/2021 2:05 PM CDT): Chronic, well controlled Low fat Low cholesterol diet Exercise Continue statin therapy Check lipid profile Assessment & Plan (04/19/2021 1:57 PM CDT): Goal of treatment , LDL cholesterol less than 100 ( less than 70 in patients with history of heart attacks and / or strokes ) NonHDL cholesterol ( total cholesterol minus HDL cholesterol ) goal less than 130 ( less than 100 in patients with history of heart attacks and / or strokes ) Low cholesterol, low fat diet was discussed and advised. Daily exercise Continue statin therapy with Pravastatin Assessment & Plan (11/09/2020 2:54 PM SALVAGE LABORER): Goal of treatment , LDL cholesterol less than 100 ( less than 70 in patients with history of heart attacks and / or strokes ) NonHDL cholesterol ( total cholesterol minus HDL cholesterol ) goal less than 130 ( less than 100 in patients with history of heart attacks and / or strokes ) Low cholesterol, low fat diet was discussed and advised. Daily exercise On statin therapy with Pravachol Assessment & Plan (02/10/2020 2:52 PM CDT): Goal of treatment , LDL cholesterol less than 100 ( less than 70 in patients with history of heart attacks and / or strokes ) NonHDL cholesterol ( total cholesterol minus HDL cholesterol ) goal less than 130 ( less than 100 in patients with history of heart attacks and / or strokes ) Low cholesterol, low fat diet was discussed and advised. Daily exercise On statin therapy Assessment & Plan (10/07/2019 3:12 PM SALVAGE LABORER): Goal of treatment , LDL cholesterol less than 100 ( less than 70 in patients with history of heart attacks and / or strokes ) NonHDL cholesterol ( total cholesterol minus HDL cholesterol ) goal less than 130 ( less than 100 in patients with history of heart attacks and / or strokes ) Low cholesterol, low fat diet was discussed and advised. Daily exercise Would strongly recommend to start statin therapy Pt wants to discuss with PCP Hypertension associated with type 2 diabetes freddy desi 08/21/2019 Assessment & Plan (02/21/2024 3:24 PM CDT): Chronic problem, controlled on current olmesartan 40mg daily, metoprolol tartrate 50mg bid Will update labs today. Does not mychart. Verified phone #/address to contact re: results. Assessment & Plan (02/27/2023 2:24 PM CDT): Chronic problem, controlled on current Olmesartan 40mg daily, diltiazem CD 120mg daily No changes at this time. Assessment & Plan (11/21/2022 2:29 PM SALVAGE LABORER): Chronic problem, WNL on recheck. Currently taking olmesartan 40mg daily. No changes at this time. Assessment & Plan (05/18/2022 3:04 PM CDT): Chronic problem, improved on recheck. Initially checked after a long walk which is difficult for her. No medication changes. Assessment & Plan (04/19/2021 1:57 PM CDT): Goal blood pressure is less than 140/85 Low salt diet was discussed andd recommended The importance of daily aerobic exercise was also emphasized. Continue current meds, including SULEIMAN-I or ARB, e.g. Olmesartan Assessment & Plan (11/09/2020 2:54 PM SALVAGE LABORER): Goal blood pressure is less than 140/85 Low salt diet was discussed andd recommended The importance of daily aerobic exercise was also emphasized. Continue current meds, including SULEIMAN-I or ARB, e.g. Olmesartan Assessment & Plan (04/13/2020 2:23 PM CDT): Goal blood pressure is less than 140/85 Low salt diet was discussed andd recommended The importance of daily aerobic exercise was also emphasized. Continue current meds, including SULEIMAN-I or ARB, e.g. with Olmesartan Assessment & Plan (02/10/2020 2:51 PM CDT): Goal blood pressure is less than 140/85 Low salt diet recommended Daily aerobic exercise Continue current meds, including SULEIMAN-I or ARB Assessment & Plan (10/07/2019 3:12 PM SALVAGE LABORER): Goal blood pressure is less than 140/85 Low salt diet recommended Daily aerobic exercise Continue current meds, including SULEIMAN-I or ARB Assessment & Plan (08/21/2019 4:14 PM SALVAGE LABORER): Controlled on current medications. Continue plan. Type 2 diabetes mellitus wit h hyperglycemia, without long-term current use of insulin 05/15/2019 Assessment & Plan (02/21/2024 3:59 PM CDT): Chronic problem, at goal (A1c=6.6%). No changes at this time. Current medications: Metformin 500 mg twice daily with meals. Januvia 100 mg Bydureon 2 mg weekly DM eye exam fall 2022. Letter sent to get copy of report. Will update labs today. Does not mychart. Verified phone #/address to contact re: results. Discussed the need to strive for regular exercise (30min most days) and diet (get at least 4-5 servings of fruit and veggies daily, avoid processed foods, increase lean protein intake and decrease carb portions as well as fruit juices, regular soda & desserts). Watch carbs and simple sugars. Check the feet daily for skin breakdown and infection. Assessment & Plan (05/29/2023 2:35 PM CDT): Chronic, well-controlled Continue current regimen including Bydureon, Januvia and metformin Continue blood glucose monitoring with Magnolia Solaryle Jud CGM Assessment & Plan (02/27/2023 2:50 PM CDT): Chronic problem, at goal (A1c=6.9%) No changes at this time. Current medications: Metformin 500 mg BID Januvia 100 mg Bydureon 2 mg weekly Had DM eye exam 01/04/22. Aware to call to set up DM eye exam. UTD on labs. Discussed the need to strive for regular exercise (30min most days) and diet (get at least 4-5 servings of fruit and veggies daily, avoid processed foods, increase lean protein intake and decrease carb portions as well as fruit juices, regular soda & desserts). Watch carbs and simple sugars. Check the feet daily for skin breakdown and infection. Assessment & Plan (11/21/2022 2:31 PM SALVAGE LABORER): Chronic problem, at goal. Forgot to bring in Jud reader. No changes at this time. Current medications: Metformin 500 mg BID Januvia 100 mg Bydureon 2 mg weekly Had DM eye exam fall [address] Ortiz. Will send letter to get copy of eye exam report. Discussed the need to strive for regular exercise (30min most days) and diet (get at least 4-5 servings of fruit and veggies daily, avoid processed foods, increase lean protein intake and decrease carb portions as well as fruit juices, regular soda & desserts). Watch carbs and simple sugars. Check the feet daily for skin breakdown and infection. Assessment & Plan (09/07/2022 2:06 PM SALVAGE LABORER): Chronic problem, fairly stable per her recall. We reviewed dietary habits and meal routine as she had questions about this. No medication changes today. Assessment & Plan (05/18/2022 3:05 PM CDT): Chronic problem, fairly stable per A1c but higher the last couple weeks so not at goal. Since they adjusted her diet with the takeout readings have started to improve. No medication changes today, they will let us know if readings persist elevated. They have regular f/u scheduled with Dr. Cunha end of May and want to keep this to make sure they have improved. Update CMP and MA/Cr today. Assessment & Plan (12/13/2021 2:06 PM CDT): Hba1c was Lab Results Component Value Date HGBA1C 7.0 12/13/2021 today, indicating adequate DM control Goal Hba1c and blood glucose explained Diet and exercise were advised Prevention and treatment of hyypoglcyemia were discussed with the patient Blood glucose monitoring : FSL , as per pt's preference Adjustment to medications: continue current Assessment & Plan (04/19/2021 1:59 PM CDT): Hba1c was Lab Results Component Value Date HGBA1C 6.2 (A) 04/19/2021 today, indicating adequate DM control Goal blood sugars in the 120-150 range , with Hb1c under 7.0 % was explained 1800 calorie, consistent carb diet recommended. No more than 30-45 grams of carbs per meal recommended, as well as avoiding high concentrated sweet drinks . 25-45 min daily exercise, combining both aerobic and resistance exercise recommended. Assessment & Plan (11/09/2020 2:54 PM SALVAGE LABORER): Hba1c was Lab Results Component Value Date HGBA1C 7 % 11/09/2020 today, indicating suboptimal DM control Goals blood sugars of 120-160 and Hba1c under 7 % was explained. 1800 calorie, consistent carb diet recommended, no more than 3-45 grams of carbs per meal, avoiding concentrated sweet drinks and rapid absorption carbs. 25-45 min daily aerobic and resistance exercise recommended Prevention and treatment of hyypoglcyemia discussed. Blood glucose monitoring with fingers sticks. Assessment & Plan (04/13/2020 2:24 PM CDT): Hba1c was Lab Results Component Value Date HGBA1C 6.3 04/13/2020 today, indicating adequate DM control 1800 calorie, consistent carb diet recommended, no more than 3-45 grams of carbs per meal, avoiding concentrated sweet drinks and rapid absorption carbs. 25-45 min daily aerobic and resistance exercise recommended Prevention and treatment of hyypoglcyemia discussed. Blood glucose monitoring with Jud CGM ... Medications: Continue current If Bydureon continue to cause GI SE, might have to be d/c Assessment & Plan (02/10/2020 2:51 PM CDT): Hba1c was Lab Results Component Value Date HGBA1C 6.7 02/10/2020 today, indicating adequate DM control 1800 calorie, consistent carb diet recommended. No more than 30-45 grams of carbs per meal recommended, as well as avoiding high concentrated sweet drinks . 25-45 min daily exercise, combining both aerobic and resistance exercise recommended. Prevention and treatment of hyypoglcyemia discussed. Stop Lantus Start Bydureon Might help with some weight loss. Assessment & Plan (08/21/2019 4:13 PM SALVAGE LABORER): A1c 6.7. Reported occasional BG < 100 5 hours + pc, which is of great concern to them. Will be starting Januvia. Reduce Lantus to 8 units. Continue metformin. They are to call with pattern < 100 or > 200. Will check labs. BG goals reviewed. Assessment & Plan (05/15/2019 4:34 PM CDT): Your Hba1c today was: Lab Results Component Value Date HGBA1C 6.4 05/15/2019 meaning a 3 month average sugar of : 127 Your goal sugars are in the 120-160 range Exercise recommendations: It is recommended that you do daily aerobic ( walking, riding a bike, swimming ) and resistance exercises ( light weight lifting, resistance band stretching ) for at least 30 minutes , most days of the week. If you can not walk, chair exercises for 10-15 min a day would help tremendously. As little as 15-20 minutes exercise , in one or two sessions a day, is still very helpful to improve your diabetes control . Diet recommendations: Eat small portion meals, trying not to consume more than 1800 calories a day . Try to eat not more than than 2 servings of carbs ( starches ) wiith your meals. Avoid soft drinks, including regular sodas , fruit juices and sweetened tea. Drink water instead. Eat plenty of green and leafy vegetables, including salads. Medications: Take your medications regularly. Setting phone alarms can help . Keep your medication on the kitchen dinner table, by the bedside table or by the sink where they are visible to you. If you are taking insulin : the insulin that you are currently using does not need to be refrigerated. Keep it where you can see it . Monitor your sugar levels with finger sticks regularly and keep a log sheet or book. Bring your sugar meter and /or a log book or log sheet to every office visit. Take Lantus , 10 units at bedtime For sugars under 120 at bedtime, have a bedtime snack Start Januvia, 100 mg daily Check sugars twice a day , bedtime and in the morning and fax logs every other week Diabetic peripheral neuropathy 05/15/2019 Assessment & Plan (04/13/2020 2:23 PM CDT): Foot care discussed rx for diabetic shoes completed Assessment & Plan (10/07/2019 3:12 PM SALVAGE LABORER): With foot deformity. Pt to get diabetic shoes. Assessment & Plan (05/15/2019 4:38 PM CDT): Foot care discussed Resolved Problems Problem Noted Date Diagnosed Date Resolved Date Morbid (severe) obesity due to excess calories 05/18/2022 11/21/2022 Body mass index (BMI) 45.0-49.9, adult 05/18/2022 11/21/2022 BMI 45.0-49.9, adult ([facility]) 05/15/2019 11/21/2022 Morbid obesity ([facility]) 05/15/201903/2023 Assessment & Plan (08/21/2019 4:14 PM SALVAGE LABORER): Exercise limited. Continue to focus on carb portions. Surgical History Surgery Date Site/Laterality Comments HYSTERECTOMY BLADDER REPAIR BRAIN SURGERY Medical History Medical History Date Comments Hypertension Stroke (cerebrum) (HCC) Hypothyroidism Diabetes (HCC) Depression High cholesterol Family History Medical History Relation Name Comments Heart attack Brother 1 No Known Problems Brother 3 Heart attack Father Aortic aneurysm Mother Diabetes Other No Known Problems Sister 1 No Known Problems Sister 2 Relation Name Status Comments Brother 1 Brother 2 Brother 3 Alive Father Mother Other Sister 1 Alive Sister 2 Alive Social History Tobacco Use Types Packs/Day Years Used Date Smoking Tobacco: Never Smokeless Tobacco: Never Alcohol Use Standard Drinks/Week Comments Not Currently 0 (1 standard drink = 0.6 oz pur e alcohol) PHQ-2 Answer Date Recorded PHQ-2 Total Score (If total score is 3 or more points, staff should administer the PHQ-9) 0 12/13/2021 Personal Safety Answer Date Recorded Getting School Help Needed Not on file 11/16 Comments No Sex and Gender Information Value Date Recorded Sex Assigned at Not on file Legal Sex Female 5:53 AM CDT Gender Identity Not on file Sexual Orientation Not on file Obstetrics History Last Filed Vital Signs Vital Sign Reading Time Taken Comments Blood Pressure 110/83 05/14/2024 1:53 PM CDT Pulse 88 02/21/2024 3:01 PM CDT Temperature 36.2 C (97.1 F) 03/22/2022 2:33 PM CDT Respiratory Rate 16 02/27/2023 2:02 PM CDT Oxygen Saturation - - Inhaled Oxygen Concentration - - Weight 113.4 kg (250 lb) 05/14/2024 1:53 PM CDT Height 162.6 cm (5' 4 ) 05/14/2024 1:53 PM CDT Body Mass Index 42.91 05/14/2024 1:53 PM CDT Plan of Treatment Health Maintenance Due Date Last Done Comments Fall Risk Assessment 1945 Hepatitis C Screening 1945 Osteoporosis Screening-Bone Density Scan 1945 DTaP/Tdap/Td Vaccine (1 - Tdap) 1956 Hepatitis B Screening 1963 Pneumococcal vaccine 65+ (1 of 2 - PCV) 1964 Zoster Vaccine (1 of 2) 1995 Well Visit 65+ 2010 Depression Screening 12/13/2022 12/13/2021, 11/09/2020, 02/10/2020, Additional history exists Influenza Vaccine (#1) 2024 07/07/2019, 2017 Dilated Eye Exam 07/17/2024 07/17/2023, , 11/18/2019, Additional history exists Hemoglobin A1C 08/22/2024 02/21/2024, 05/18, 02/27/2023, Additional history exists Foot Exam 02/20/2025 02/21/2024, 090 09/2021, 04/19/2021, Additional history exists Lipid Panel 02/20/2025 02/21/2024, 02/15, 12/13/2021, Additional history exists eGFR 02/20/2025 02/21/2024, 05/18, 05/18/2022, Additional history exists Albumin Creatinine Ratio, Urine 02/21/2025 02/22/2024, 06/08/2022, 04/16/2021, Additional history exists Procedures Procedure Name Priority Date/Time Associated Diagnosis Comments ALBUMIN CREATININE RATIO, URINE Routine 02/22/2024 12:10 PM CDT Type 2 diabetes mellitus with hyperglycemia, without long-term current use of insulin (HCC) EGFR Routine 02/21/2024 3:58 PM CDT Type 2 diabetes mellitus with hyperglycemia, without long-term current use of insulin (HCC) Hypertension associated with type 2 diabetes mellitus (HCC) LIPID PANEL Routine 02/21/2024 3:58 PM CDT Type 2 diabetes mellitus with hyperglycemia, without long-term current use of insulin (HCC) Mixed diabetic hyperlipidemia associated with type 2 diabetes mellitus (HCC) POCT HEMOGLOBIN A1C Routine 02/21/2024 3 :04 PM CDT Type 2 diabetes mellitus with hyperglycemia, without long-term current use of insulin (HCC) HM DIABETES EYE EXAM Routine 07/17/2023 7:58 AM CDT from Last 3 Months or Most Recently Relevant to Health Maintenance Results * (ABNORMAL) Albumin Creatinine Ratio, Urine (02/22/2024 12:10 PM CDT) Albumin Ur 94.9 mg/L Comment: Interpretive Data No reference range established. Current interpretive data was last revised 2019. Creatinine Ur 94.3 mg/dL [facility] Comment: Interpretive Data No reference range established. Current interpretive data was last revised 2019. Albumin Creatinine Ratio, Ur 101(H) 1 - 29 mg/g [facility] Urine 02/22/2024 12:1 0 PM CDT 02/22/2024 2:25 PM CDT us Doris Cardozo NP LAB URINE ORDERABLES Adriana stern Result [facility] [id number] Department [place] [address] * eGFR (02/21/2024 3:58 PM CDT) eGFR 89 >=60 mL/min/1. 73 m2 Comment: Interpretive Data Reference Interval Normal >/= 90 mL/min/1.73m2 Mildly decreased* 60 - 89 mL/min/1.73m2 Mildly to moderately decreased 45 - 59 mL/min/1.73m2 Moderately to severely decreased 30 - 44 mL/min/1.73m2 Severely decreased 15 - 29 mL/min/1.73m2 Kidney Failure < 15 mL/min/1.73m2 *Relative to young adult level Estimated glomerular filtration rate is determined by the 2020 CKD-EPI equation recommended by the National Kidney Foundation (A Unifying Approach to GFR Estimation: Recommendations of the NKF-ASK Task Force on Reassessing the Inclusion of Race in Diagnosing Kidney Disease, JASN 2020). The CKD-EPI equation should not be used for patients with unstable renal function and has not been validated in children and those over 70. Current interpretive data was last reviewed 2021. Blood 02/21/2024 3:58 PM CDT 02/21/2024 9:21 PM CDT us Doris Cardozo [employer] LAB BLOOD ORDERABLES Adriana l Result [facility] [id number] Department of Laboratories [place], [place] [id number] * (ABNORMAL) Lipid panel (02/21/2024 3:58 PM CDT) Cholesterol 158 30 - 199 mg/dL Comment: Interpretive Data Ages < or = 19 years Acceptable: <170 mg/dL Borderline high: 170-199 mg/dL High: >or= 200 mg/dL Ages > or = 20 years Desirable: <200 mg/dL Borderline high: 200-239 mg/dL High: >or= 240 mg/dL Literature References: 1. Expert Panel on Integrated Guidelines for Cardiovascular Health and Risk Reduction in Children and Adolescents. Pediatrics 2011;128:S213 2. NCEP Expert Panel. Circulation 2004;110:227 Current Interpretive Data was last revised on 2018. Triglycerides 209(H) <=149 mg/dL GUERO WAGGONER Comment: Interpretive Data Ages < or = 9 years Acceptable: <75 mg/dL Borderline high: 75-99 mg/dL High: >or= 100 mg/dL Ages 10 to 20 years Acceptable: <90 mg/dL Borderline high: 90-129 mg/dL High: >or= 130 mg/dL Ages > or = 20 years Desirable: <150 mg/dL Borderline high: 150-199 mg/dL High: 200-499 mg/dL Very high: >or= 499 mg/dL Literature References: 1. Expert Panel on Integrated Guidelines for Cardiovascular Health and Risk Reduction in Children and Adolescents. Pediatrics 2011;128:S213 2. NCEP Expert Panel. Circulation 2004;110:227 Current Interpretive Data was last revised on 2018. HDL 28(L) >=40 mg/dL GUERO WAGGONER Comment: Interpretive Data Ages < or = 19 years Acceptable: >45 mg/dL Borderline low: 40-45 mg/dL Low: <40 mg/dL Ages > or = 20 years Desirable: >or= 60 mg/dL Low: <40 mg/dL Literature References: 1. Expert Panel on Integrated Guidelines for Cardiovascular Health and Risk Reduction in Children and Adolescents. Pediatrics 2011;128:S213 2. NCEP Expert Panel. Circulation 2004;110:227 Current Interpretive Data was last revised on 2018. LDL, calculated 88 <=129 mg/dL GUERO WAGGONER Comment: Interpretive Data Ages < or = 19 years Acceptable: <110 mg/dL Borderline high: 110-129 mg/dL High: >or= 130 mg/dL Ages > or = 20 years Optimal: <100 mg/dL Near optimal: 100-129 mg/dL Borderline high: 130-159 mg/dL High: >160 mg/dL Literature References: 1. Expert Panel on Integrated Guidelines for Cardiovascular Health and Risk Reduction in Children and Adolescents. Pediatrics 2011;128:S213 2. NCEP Expert Panel. Circulation 2004;110:227 Current Interpretive Data was last revised on 2018. Non-HDL Cholesterol 130 mg/dL GUERO WAGGONER Comment: Interpretive Data Ages < or = 19 years Acceptable: <120 mg/dL Borderline high: 120-144 mg/dL High: >145 mg/dL Ages > or = 20 years When triglycerides are >200 mg/dL, Non-HDL cholesterol is a secondary target of therapy with treatment goals that are 30 mg/dL greater than the LDL cholesterol target. Literature References: 1. Expert Panel on Integrated Guidelines for Cardiovascular Health and Risk Reduction in Children and Adolescents. Pediatrics 2011;128:S213 2. NCEP Expert Panel. Circulation 2004;110:227 Current Interpretive Data was last revised on 2018. Chol/HDL ratio 6 GUERO WAGGONER Blood 02/21/2024 3:58 PM CDT 02/21/2024 9:15 PM CDT us Doris Cardozo SAFETY EQUIPMENT TESTER LAB BLOOD ORDERABLES Adriana l Result GUERO WAGGONER [id number] Department [place] [address] * (ABNORMAL) POCT hemoglobin A1c (02/21/2024 3:04 PM CDT) Hemoglobin A1C, POC 6.6 % Blood 02/21/2024 3:04 PM CDT Doris Cardozo SAFETY EQUIPMENT TESTER POINT OF CARE TEST ORDERA BLES Final Result * DIABETES EYE EXAM (07/17/2023 7:58 AM CDT) us Historical Provider HEALTH MAINTENANCE Final Result from Last 3 Months or Most Recently Relevant to Health Maintenance Insurance [facility] MEDICARE [facility] MEDICARE Address: [address] [phone] Care Teams Petroleum Geology Faculty Member Relationship Specialty Start Date End Date Preston Goetz DO [address] [place] [address] PCP - General Internal Medicine 02/21/24 Damari Hall MD Referring Physician Internal Medicine 04/10/19 Apolinar Ortiz OD [address] [place] [address] Primary Eye Care Provider Data Compiler 10/07/19
--- OUTSIDE RECORDS SUMMARY | 2024-11-21 15:00 | XMS_ITS | Referral Summary ---
Author Organization [facility] [address] [place] [id number] Care Team Providers Care Electrical Prospector Name Role Phone Damari Hall MD Unavailable [phone] Apolinar Ortiz OD Unavailable [phone] Preston Goetz DO Primary Care Provider [phone] Allergies Active Allergy Reactions Criticality Noted Date [...] 11/21/2022 Assessment & Plan (11/21/2022 2:28 PM PERSONNEL COUNSELOR): Discussed healthy diet and importance of regular physical activity (20- 30min/day, 150min/wk). Limited activity s/p CVA 2010, some L sided weakness remains. 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 Her examination appears similar to prior descriptions in [facility] prior medical records. 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 Her current examination appears similar to that described in prior [facility] records. She reports no seizures over the past year while taking levetiracetam 500 mg b.i.d.. I have renewed her levetiracetam is presently scheduled and I will see her back in a year. Tremor 09/27/2020 Assessment & Plan (09/27/2020 4:32 PM PERSONNEL COUNSELOR): Patient has mild intention tremor seen in [...] gemfibrozil 600mg bid Last lipid panel: 02/27/23 JFU=499, KM=811. Will update labs today. Verified phone #/address [...] gemfibrozil 600mg bid Last lipid panel: 12/13/21 FKY=916, UW=870. Will update labs today. Verified phone #/address to contact re: results. Assessment & Plan (11/21/2022 2:23 PM PERSONNEL COUNSELOR): Chronic problem, not at goal on Pravastatin 20mg. Last lipid panel: 12/13/21 GSR=854, XU=877. Increase pravastatin from 10mg to 20mg daily [...] Pravastatin Assessment & Plan (11/09/2020 2:54 PM PERSONNEL COUNSELOR): Goal of treatment , LDL cholesterol less [...] therapy Assessment & Plan (10/07/2019 3:12 PM PERSONNEL COUNSELOR): Goal of treatment , LDL cholesterol less [...] time. Assessment & Plan (11/21/2022 2:29 PM PERSONNEL COUNSELOR): Chronic problem, WNL on recheck. Currently taking [...] Olmesartan Assessment & Plan (11/09/2020 2:54 PM PERSONNEL COUNSELOR): Goal blood pressure is less than 140/85 [...] ARB Assessment & Plan (10/07/2019 3:12 PM PERSONNEL COUNSELOR): Goal blood pressure is less than 140/85 Low salt diet recommended Daily aerobic exercise Continue current meds, including SULEIMAN-I or ARB Assessment & Plan (08/21/2019 4:14 PM PERSONNEL COUNSELOR): Controlled on current medications. Continue plan. Type [...] and metformin Continue blood glucose monitoring with [employer] Jud CGM Assessment & Plan (02/27/2023 2:50 [...] infection. Assessment & Plan (11/21/2022 2:31 PM PERSONNEL COUNSELOR): Chronic problem, at goal. Forgot to bring [...] infection. Assessment & Plan (09/07/2022 2:06 PM PERSONNEL COUNSELOR): Chronic problem, fairly stable per her recall. [...] recommended. Assessment & Plan (11/09/2020 2:54 PM PERSONNEL COUNSELOR): Hba1c was Lab Results Component Value Date [...] loss. Assessment & Plan (08/21/2019 4:13 PM PERSONNEL COUNSELOR): A1c 6.7. Reported occasional BG < 100 [...] completed Assessment & Plan (10/07/2019 3:12 PM PERSONNEL COUNSELOR): With foot deformity. Pt to get diabetic shoes. Assessment & Plan (05/15/2019 4:38 PM CDT): Foot care discussed Resolved Problems Problem Noted Date Diagnosed Date Resolved Date Morbid (severe) obesity due to excess calories 05/18/2022 11/21/2022 Body mass index (BMI) 45.0-49.9, adult 05/18/2022 11/21/2022 BMI 45.0-49.9, adult ([facility] 05/15/2019 11/21/2022 Morbid obesity ([facility]) 05/15/201903/2023 Assessment & Plan (08/21/2019 4:14 PM PERSONNEL COUNSELOR): Exercise limited. Continue to focus on carb portions. Social History Tobacco Use Types Packs/Day Years [...] on file Sexual Orientation Not on file Last Filed Vital Signs Vital Sign Reading [...] 05/14/2024 1:53 PM CDT Plan of Treatment Not on file Procedures Procedure Name Priority Date/Time Associated Diagnosis Comments ALBUMIN CREATININE RATIO, URINE Routine 02/22/2024 12:10 PM CDT Type 2 diabetes mellitus with hyperglycemia, without long-term current use of insulin ([facility]) EGFR Routine 02/21/2024 3:58 PM CDT Type [...] without long-term current use of insulin ([facility]) DIABETES EYE EXAM Routine 07/17/2023 7:58 AM CDT from Last 3 Months or Most Recently Relevant to Health Maintenance Results * (ABNORMAL) Albumin Creatinine Ratio, Urine (02/22/2024 12:10 PM CDT) Albumin Ur 94.9 mg/L Comment: Interpretive Data No reference range established. Current interpretive data was last revised 2019. Creatinine Ur 94.3 mg/dL GUERO WAGGONER Comment: Interpretive Data No reference range established. Current interpretive data was last revised 2019. Albumin Creatinine Ratio, Ur 101(H) 1 - 29 mg/g GUERO WAGGONER Urine 02/22/2024 12:1 0 PM CDT 02/22/2024 2:25 PM CDT us Doris Cardozo NP LAB URINE ORDERABLES Adriana l Result GUERO WAGGONER [id number] Department [place] [address] * eGFR (02/21/2024 3:58 PM CDT) eGFR [...] 02/21/2024 9:21 PM CDT us Doris Cardozo NP LAB BLOOD ORDERABLES Adriana stern Result GUERO WAGGONER [id number] Department [place] [address] * (ABNORMAL) Lipid panel (02/21/2024 3:58 PM [...] revised on 2018. Chol/HDL ratio 6 GUERO Blood 02/21/2024 3:58 PM CDT 02/21/2024 9:15 PM CDT us Doris Cardozo QA AUTOMATION ARCHITECT LAB BLOOD ORDERABLES Adriana l Result GUERO WAGGONER [address] Department [place] [address] * (ABNORMAL) POCT hemoglobin A1c (02/21/2024 3:04 PM CDT) Hemoglobin A1C, POC 6.6 % Blood 02/21/2024 3:04 PM CDT us Doris Cardozo QA AUTOMATION ARCHITECT POINT OF CARE TEST ORDERA BLES Final Result * DIABETES EYE EXAM (07/17/2023 7:58 AM CDT) Historical Provider MD HEALTH MAINTENANCE Final Result from Last 3 Months or Most Recently Relevant to Health Maintenance Insurance [facility] MEDICARE Care Teams Electrical Prospector Relationship Specialty Start Date End Date Preston Goetz DO [address] [place] [id number] PCP - General Internal Medicine 02/21/24 Damari Hall MD Referring Physician Internal Medicine 04/10/19 Apolinar Ortiz OD [address] [place] [address] Primary Eye Care Provider Spring Repairer Helper Hand 10/07/19
--- OUTSIDE RECORDS SUMMARY | 2024-11-21 15:00 | XMS_ITS | Clinical Summary ---
Author Organization [facility] Address [address] [place] [phone] Phone Care Team Providers Care Dairy Management Specialist Name Role Phone Zoila Holley MD Primary Care Provider Unavaila ble Allergies Active Allergy Reactions Criticality Noted Date Comments Latex Rash Low 01/03/2011 Medications bethanechol (URECHOLINE) 25 mg Oral tablet Take 25 mg by mouth 2 times daily. 01/03/2011 Active diltiazem (CARDIZEM) 120 mg Oral Tab Take 120 mg by mouth every 12 hours. 01/03/2011 Active docusate sodium (COLACE) 100 mg Oral capsule Take 100 mg by mouth 2 times daily. Active famotidine (PEPCID) 20 mg Oral tablet Take 20 mg by mouth 2 times daily. Active folic acid (FOLVITE) 1 mg Oral tablet Take 1 mg by mouth daily. Active gemfibrozil (LOPID) 600 mg Oral tablet Take 600 mg by mouth 2 times daily. Active desvenlafaxine SR 24 hour (PRISTIQ) 50 mg Oral Tb24 Take 50 mg by mouth daily with breakfast. Active levothyroxine (SYNTHROID) 50 mcg Oral tablet Take 50 mcg by mouth daily forestry aid technician. Active lisinopril (PRINIVIL) 30 mg Oral tablet Take 30 mg by mouth daily. Active melatonin 3 mg Oral Tab Take by mouth nightly as needed. 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 Gender Identity Not on file Sexual Orientation Not on file Last Filed Vital Signs Vital Sign Reading Time Taken Comments Blood Pressure 142/63 01/03/2011 5:30 PM CDT Pulse 96 01/03/2011 5:30 PM CDT Temperature 36.9 C (98.4 F) 01/03/2011 5:30 PM CDT Respiratory Rate 16 01/03/2011 5:30 PM CDT Oxygen Saturation 96% 01/03/2011 5:30 PM CDT Inhaled Oxygen Concentration - - Weight 88 kg (194 lb) 01/03/2011 1:35 PM CDT Height 165.1 cm (5' 5 ) 01/03/2011 1:21 PM CDT Body Mass Index 32.28 01/03/2011 1:21 PM CDT Plan of Treatment Health Maintenance Due Date Last Done Comments DTAP/TDAP/TD VACCINES (1 - Tdap) 1964 PNEUMOCOCCAL VACCINE 50+ YEARS (1 of 1 - PCV) 06/11/19 95 ZOSTER VACCINE (1 of 2) 1995 OSTEOPOROSIS SCREENING 2010 RSV VACCINE (60+ or ) (1 - 1-dose 75+ series) 2020 INFLUENZA VACCINE (#1) 2024 Insurance MEDICARE PART A AND B [employer] OPEN ACCESS Care Teams Dairy Management Specialist Relationship Specialty Start Date End Date Zoila Holley MD NO ADDRESS ON FILE PCP - General Neurosurgery 01/03/11
--- OUTSIDE RECORDS SUMMARY | 2024-11-21 15:00 | XMS_ITS | Patient Health Record ---
Author Organization [facility] As Lavish Skate [facility] Address [address] [place] [address] Care Team Providers Care Hem Marker Name Role Phone Jyoti Crowell Unavailable [phone] Obdulio Caio Unavailable [phone] Donna Munson Unavailable [phone] Migration, Provider Unavailable Unavailable Allergies Allergen (clinical drug ingredient) Drug/Non Drug Allergy documented on EMR Reaction Allergy Type Onset Date Status Shellfish (FN) SHELLFISH DERIVED (uncoded) Unknown Allergy 09/12/2023 Active hydromorphone Dilaudid Unknown Drug Allergy 09/12/2023 Ac tive Iodine Unknown Drug Allergy 09/12/2023 Active Latex Latex Unknown Allergy 09/12/2023 Active Reason For Referral No Information Medications Medication SIG (Take, Route, Frequency, Duration) Notes Start Date End Date Status Bydureon BCise 2 MG/0.85ML INJECT 2 MG U NDER THE SKIN ONCE WEEKLY Subcutaneous for 84 Days Active Levothyroxine Sodium 137 MCG TAKE 1 TABLET BY MOUTH DAILY Oral for 90 Days Active Januvia 100 MG TAKE 1 TABLET BY LAVELLE TH DAILY Oral for 90 Days Active Folic Acid 1 MG TAKE 1 TABLET BY LAVELLE TH DAILY Oral for 90 Days Active Olmesartan Medoxomil 40 MG TAKE 1 TABLET BY MOUTH DAILY Oral for 90 Days Active Trospium Chloride 20 MG TAKE 1 TABLET BY MOUTH TWICE DAILY Oral for 90 Days Active FeroSul 325 (65 Fe) MG TAKE 1 TABLET BY MOUTH TWICE DAILY Oral for 90 Days Active Vitamin D (Ergocalciferol) 1.25 MG (71851 UT) TAKE 1 CAPSULE BY MOUTH EVERY WEEK Oral for 84 Days Active Gemfibrozil 600 MG TAKE 1 TABLET BY LAVELLE TH TWICE DAILY Oral for 90 Days Active metFORMIN HCl 500 MG TAKE 1 TABLET BY MO UTH TWICE DAILY Oral for 90 Days Active Sertraline HCl 100 MG 1.5 tablet Oral On ce a day for 30 days Active buPROPion HCl ER (XL) 150 MG 1 tablet in the morning Oral Once a day for 90 days Active Metoprolol Tartrate 50 MG TAKE 1 TABLET BY MOUTH EVERY 12 HOURS Oral for 90 Days Active Omeprazole 20 MG TAKE 1 CAPSULE BY MO UTH DAILY Oral for 90 Days Active levETIRAcetam 500 MG Oral for 90 Days Active Immunizations Vaccine Route Administration Date Status Comme nts Influenza, high dose seasonal Unknown 09/02/2018 Admini stered Influenza, high dose seasonal Unknown 07/07/2019 Admini stered Influenza, high-dose seasona l, quadrivalent, preservative free >65 yrs Unknown 08/23/2020 Administered Moderna Covid-19 Vaccine 1st dose Unknown 11/03/2020 Ad ministered Moderna Covid-19 Vaccine 1st dose Unknown 12/06/2020 Ad ministered Moderna Covid-19 Vaccine 1st dose Unknown 08/05/2021 Ad ministered Moderna Covid-19 Vaccine 1st dose Unknown 01/05/2022 Ad ministered Pneumococcal polysaccharide PPV23 Unknown 08/23/2020 Ad ministered Social History Tobacco Use: Social History Observation Description Date Details (start date - stop date) Never Smoker NA - NA Sex Assigned At : Social History Observation Description Sex Assigned At Female Tobacco Control (Standard) Question Answer Notes Tobacco use: Nonsmoker Problems Problem Type SNOMED Code ICD Code Onset Dates Problem Status W/U Status Risk Notes Problem Moderate recurrent major depression (93551928) Major depressive disorder, recurrent, moderate (F33.1) 3 Active confirmed Problem Severe recurrent major depression without psychotic features (35231599) Major depressive disorder, recurrent severe without psychotic features (F33.2) Active confirmed Problem Generalized anxiety disorder (38056184) Generalized anxiety disorder (F41.1) 3 Active confirmed Vital Signs Heart Rate 79 /min 05/06/2024 Height-cm 160.02 cm 06/26/2024 Blood pressure diastolic 57 mm Hg 05/06/2024 Weight-kg 113.4 kg 05/06/2024 Height 63.00 in 06/26/2024 Blood pressure systolic 134 mm Hg 05/06/2024 Weight 250 lbs 05/06/2024 BMI 44.28 kg/m2 05/06/2024 Encounters Encounter Location Date Provider Diagnosis [facility], [facility] [address] [place] [address] 06/17/2024 Caio Mak [facility], [facility] [address] [place] [address] 05/06/2024 Donna Munson Major depressive disorder, recurrent, moderate F33.1 ; Generalized anxiety disorder F41.1 and Single seizure R56.9 [facility], [facility] [address] [place] [address] 06/26/2024 Donna Munson Major depressive disorder, recurrent, moderate F33.1 ; Generalized anxiety disorder F41.1 and Single seizure R56.9 [facility], [facility] [address] [place] [address] 07/31/2024 Jyoti Mervat Major depressive disorder, recurrent, moderate F33.1 ; Generalized anxiety disorder F41.1 and Single seizure R56.9 [facility], [facility] [address] [place] [address] 09/30/2024 Jyoti Mervat Major depressive disorder, recurrent, moderate F33.1 ; Generalized anxiety disorder F41.1 and Single seizure R56.9 [facility], [facility] [address] [place] [address] 02/02/2024 Provider Migration [facility], [facility] [address] [place] [address] 02/03/2024 Provider Migration [facility], [facility] [address] [place] [address] 04/22/2024 Donna Munson Major depressive disorder, recurrent severe without psychotic features F33.2 [facility], [facility] [address] [place] [address] 04/23/2024 Donna Munson Major depressive disorder, recurrent severe without psychotic features F33.2 [facility], [facility] [address] [place] [address] 06/09/2024 Donna Munson [facility], [facility] [address] [place] [address] 06/17/2024 Donna Arpit [facility], [facility] [address] [place] [address] 06/17/2024 Donna Ariasdominguez [facility], [facility] [address] [facility] [address] [facility] [address] [place] [address] 07/08/2024 Donna Arpit [facility], [facility] [address] [facility] [address] [facility] [address] [place] [address] 07/08/2024 Donna Knoxsylwiaradhames Assessments Encounter Date Diagnosis (ICD Code) Assessment Notes Treatment Notes Treatment Clinical Notes Section Notes 05/06/2024 Major depressive disorder, recurrent, moderate (ICD-10 - F33.1) decrease prozac to 20mg qam x 1 wk, then 10mg qam x 1 wk, then stop at the same start sertraline 25mg daily x 1 wk, then 50mg daily cont bupropion XL 150mg qamrefer to therapy look into aging resources discuss we can't really change the main issues/stressors they are having that impact sx. But they can look into getting home health, try assisted living, senior resources, etc. ways to get physical help but also social interaction, stc. gave printout with [place] Dept of Aging contact info to check into resources. for medication, discuss options, change SSRI, in past duloxetine-made dizzy, avoid increase ndri with seizure hx, though discussed most psych meds can impact seizure threshold. shared decision to cross taper prozac to sertraline. review r/b/se; also gave written med instructions recommend therapy, interested, refer here f/u 6 wks, earlier if concerns 05/06/2024 Generalized anxiety disorder (ICD-10 - F41.1) meds, therapy as above 06/26/2024 Major depressive disorder, recurrent, moderate (ICD-10 - F33.1) moderately severe increase sertraline to 100mg daily cont bupropion XL 150mg qamreferred to therapy-has intake scheduled have recommended look into aging resources tolerating cross taper, but not any improvement yet. discuss options, will increase to more therapeutic dose, review r/b/se. Depending on response to increase, may stay with sertraline or consider change/adjunct other treatment. did not keep 06/17 therapy appt, wasn't feeling well, scheduled for intake 07/08/24, encouraged to keep appt f/u 1 months, earlier if concerns -discussed transition to new provider as I am leaving the practice after this month 07/31/2024 Major depressive disorder, recurrent, moderate (ICD-10 - F33.1) SSRI/SNRI side effects discussed including but not limited to, gastric upset, nausea, vomiting, diarrhea and/or constipation, weight changes, sexual side effects including loss of libido, increased suicidal thoughts/behavior s in children and young adults, and serotonin syndrome. History of seizures so hesitate to increase Wellbutrin; has been stable on Wellbutrin for some time. No seizure activity since 2010. 09/30/2024 Major depressive disorder, recurrent, moderate (ICD-10 - F33.1) SSRI/SNRI side effects discussed including but not limited to, gastric upset, nausea, vomiting, diarrhea and/or constipation, weight changes, sexual side effects including loss of libido, increased suicidal thoughts/behavior s in children and young adults, and serotonin syndrome. History of seizures so hesitate to increase Wellbutrin; has been stable on Wellbutrin for some time. No seizure activity since 2010. 04/22/2024 Major depressive disorder, recurrent severe without psychotic features (ICD-10 - F33.2) Electronic Prior Authorization was requested for buPROPion HCl ER (XL) 150 MG Tablet Extended Release 24 Hour. Provider can order medication once approval received. 04/23/2024 Major depressive disorder, recurrent severe without psychotic features (ICD-10 - F33.2) Electronic Prior Authorization was requested for buPROPion HCl ER (XL) 150 MG Tablet Extended Release 24 Hour. Provider can order medication once approval received. 09/30/2024 Generalized anxiety disorder (ICD-10 - F41.1) 07/31/2024 Generalized anxiety disorder (ICD-10 - F41.1) 06/26/2024 Generalized anxiety disorder (ICD-10 - F41.1) increase SSRI meds, therapy as above 05/06/2024 Single seizure (ICD-10 - R56.9) one seizure 13 years ago, sees neurologist, gets keppra 06/26/2024 Single seizure (ICD-10 - R56.9) one seizure 13 years ago, sees neurologist, gets keppra 07/31/2024 Single seizure (ICD-10 - R56.9) one seizure 13 years ago (hemorrhagic stroke), sees neurologist, gets keppra 09/30/2024 Single seizure (ICD-10 - R56.9) one seizure 13 years ago (hemorrhagic stroke), sees neurologist, gets keppra 07/31/2024 Other Increase sertraline to 150mg daily for mood, anxiety. Patient educated on all medications including potential benefits, side effects, risks. Educated on proper dosing schedule and importance of compliance. 09/30/2024 Other Stable, cont current medications. Patient educated on all medications including potential benefits, side effects, risks. Educated on proper dosing schedule and importance of compliance. -Assessment and treatment plan reviewed with patient. -Compliance with treatment plan importance discussed. -Discussed the risks/benefits of this medication -Discussed medication side effects. -Contact office if symptoms worsen. -Discussed that it can take up to 6-8 weeks to see full therapeutic effects of psychotropic medications. -Crisis prevention hotline [phone]. Dementia screen not done today reason: telehealth, pt working with rehab will obtain at next in person visit Plan Of Treatment No Information Insurance Providers Payer Name Payer Address Payer Phone Subscriber Number Group Number Insured Name Patient Relationship to Insured Coverage Start Date Coverage End Date [employer] Medicare Replacemen t/Advantag e - Ppo [address] [place] [phone] [id number] MARCO A CABRERA Self - patient is the insured Medical (General) History Medical History History ICD Code Problems: Essential hypertension Generalized anxiety disorder History of single seizure Hyperlipidemia Moderate recurrent major depression Severe recurrent major depression withou t psychotic features Type 2 diabetes mellitus , Surgical History Surgery Date(Month/Year) Hysterectomy (37592) Neurosurgery 11/11/2010
--- OUTSIDE RECORDS SUMMARY | 2024-11-21 15:01 | XMS_ITS ---
Author Organization [facility] [employer] Address [address] [place] [address] Care Team Providers Care Pilot Plant Supervisor Name Role Phone Jyoti Crowell Unavailable [phone] Allergies Allergen (clinical drug ingredient) Drug/Non Drug Allergy documented on EMR Reaction Allergy Type Onset Date Status Shellfish (FN) SHELLFISH DERIVED (uncoded) Unknown Allergy 09/12/2023 Active hydromorphone Dilaudid Unknown Drug Allergy 09/12/2023 Ac tive Iodine Unknown Drug Allergy 09/12/2023 Active Latex Latex Unknown Allergy 09/12/2023 Active REASON FOR VISIT follow up Medications Medication SIG (Take, Route, Frequency, Duration) Notes Start Date End Date Status Sertraline HCl 100 MG 1.5 tablet Oral [...] UTH DAILY Oral for 90 Days Active Olmesartan Medoxomil 40 MG TAKE 1 TABLET BY MOUTH DAILY Oral for 90 Days Active Bydureon BCise 2 MG/0.85ML INJECT 2 MG U NDER THE SKIN ONCE WEEKLY Subcutaneous for 84 Days Active Januvia 100 MG TAKE 1 TABLET BY LAVELLE TH DAILY Oral for 90 Days Active Trospium Chloride 20 MG TAKE 1 TABLET BY MOUTH TWICE DAILY Oral for 90 Days Active Vitamin D (Ergocalciferol) 1.25 MG (88460 UT) TAKE 1 CAPSULE BY MOUTH EVERY WEEK Oral for 84 Days Active metFORMIN HCl 500 MG TAKE 1 TABLET BY MO UTH TWICE DAILY Oral for 90 Days Active levETIRAcetam 500 MG Oral for 90 Days Active Levothyroxine Sodium 137 MCG TAKE 1 TABLET BY MOUTH DAILY Oral for 90 Days Active Folic Acid 1 MG TAKE 1 TABLET BY LAVELLE TH DAILY Oral for 90 Days Active FeroSul 325 (65 Fe) MG TAKE 1 TABLET BY MOUTH TWICE DAILY Oral for 90 Days Active Gemfibrozil 600 MG TAKE 1 TABLET BY LAVELLE TH TWICE DAILY Oral for 90 Days Active Social History Tobacco Use: Social History Observation Description Date Details (start date - stop date) Never Smoker NA - NA Sex Assigned At : Social History Observation Description Sex Assigned At Female Tobacco Control (Standard) Question Answer Notes Tobacco use: Nonsmoker Encounters Encounter [email or web address] [address] [place] [address] 09/30/2024 Jyoti Mervat Major depressive disorder, recurrent, moderate F33.1 ; Generalized anxiety disorder F41.1 and Single seizure R56.9 Assessments Encounter Date Diagnosis (ICD Code) Assessment Notes Treatment Notes Treatment Clinical Notes Section Notes 09/30/2024 Major depressive disorder, recurrent, moderate (ICD-10 - F33.1) SSRI/SNRI side effects discussed including but not limited to, gastric upset, nausea, vomiting, diarrhea and/or constipation, weight changes, sexual side effects including loss of libido, increased suicidal thoughts/behavi ors in children and young adults, and serotonin syndrome. History of seizures so hesitate to increase Wellbutrin; has been stable on Wellbutrin for some time. No seizure activity since 2010. 09/30/2024 Generalized anxiety disorder (ICD-10 - F41.1) 09/30/2024 Single seizure (ICD-10 - R56.9) one seizure 13 years ago (hemorrhagic stroke), sees neurologist, meek padilla 09/30/2024 Other Stable, cont current medications. Patient [...] next in person visit Plan Of Treatment Medication Medication Name Sig Start Date Stop Date Notes Sertraline HCl 100 MG 1.5 tablet Oral On ce a day for 30 days buPROPion HCl ER (XL) 150 MG 1 tablet in the morning Oral Once a day for 90 days Treatment Notes Assessment Notes Major depressive [...] (hemorrhagic stroke), sees neurologist, gets keppra Other Stable, cont current medications. Patient educated on all medications including potential benefits, side effects, risks. Educated on proper dosing schedule and importance of compliance. Next Appt Details Follow Up: 3 Months, Reason: medication follow up Progress Notes * MARCO A ROBBINSDOB:1944 (79 yo F)Acc No.[id number]:09/30/2024 Patient: DEVIN PEREZDINORA Bolden Provider: KIMMIE MCCLAIN :1945 A ge:79 Y S ex:Female Date:09/30/2024 Address:[address] [place], [place] [address] Check In:02:07 PM CSTCheck O ut:02:12 PM CORROSION CONTROL TECHNICIAN Subjective: * Chief Complaints: * F ollow up * HPI: H istory of Presenting Problem: Anxiety w ith excessive worry, which has been long-standing Rates anxiety 5/10 with 10 being most severe. Denies recent panic attacks. . D epression?Rates depression 6/10 with 10 being most severe. Denies SI. . M ood lability n o hx veda. P sychosis n o hx psychosis. S uicidal ideation d enies. Here for follow up. Sertraline increased last apt. She was in rehab for increased falls. Denies falls that resulted in injury. Depression is about the same . No significant change sine increase in sertraline. Denies side effects since sertraline increase. Anxiety its the same . No panic attacks recently. Sleep is good, getting about 10 hours nightly. Energy is low. Appetite is good. P ast Psychiatric Hospitalizations: Previous psychiatric hospitalizations P revious Psychiatric Hospitalization N o. P ast History of Suicidal attempt H ave you ever attempted suicide in the past N o. Previous medications: fluoxetine. F unctional Status: Outcome Assessment F indings: N ot documented, patient is severely impaired and caregiver knowledge is limited. * ROS: P sychiatric: Patient denies a uditory / visual hallucinations, delusions, suicidal thoughts, veda, psychosis, panic attacks. P atient complains of a nxiety, depressed mood. Bennie Elder [facility] for details. * Medical History: * Medications: T akingbuPROPion HCl ER (XL) 150 MG Tablet Extended Release 24 Hour 1 tablet in the morning Oral Once a day Sertraline HCl 100 MG Tablet 1.5 tablet Oral Once a day Januvia 100 MG Tablet TAKE 1 TABLET BY MOUTH DAILY Oral Bydureon BCise 2 MG/0.85ML Auto-injector INJECT 2 MG UNDER THE SKIN ONCE WEEKLY Subcutaneous metFORMIN HCl 500 MG Tablet TAKE 1 TABLET BY MOUTH TWICE DAILY Oral Vitamin D (Ergocalciferol) 1.25 MG (62001 UT) Capsule TAKE 1 CAPSULE BY MOUTH [...] day Taking Sertraline HCl 100 MG Tablet 1.5 tablet Oral Once a day Taking Januvia 100 MG Tablet TAKE 1 TABLET BY MOUTH DAILY Oral Taking Bydureon BCise 2 MG/0.85ML Auto-injector INJECT 2 MG UNDER THE SKIN ONCE WEEKLY Subcutaneous Taking metFORMIN HCl 500 MG Tablet TAKE 1 TABLET BY MOUTH TWICE DAILY Oral Taking Vitamin D (Ergocalciferol) 1.25 MG (09366 UT) Capsule TAKE 1 CAPSULE BY MOUTH [...] years ago (hemorrhagic stroke), sees neurologist, gets randy 3. O thers Notes: Stable, cont current medications. Patient educated on all medications including potential benefits, side effects, risks. Educated on proper dosing schedule and importance of compliance. Clinical Notes: -Assessment and treatment plan reviewed with patient. [...] will obtain at next in person visit * Procedure Codes: G 2211 VISIT COMPLEXITY INHERENT TO ONGOING CARE RELATED TO A PATIENT'S SINGLE, SERIOUS CONDITION OR A COMPLEX [id number] Doc med rsn no funct [id number] No funct stat perf, rsn nos * Follow Up: 3 Months (Reason: medication follow up) * Billing Information: * Visit Code: 87629 OFFICE OUTPATIENT VISIT 15 MINUTES EXPANDED HISTORY AND EXAM/LOW MEDICAL DECISION MAKING. * Procedure Codes: G2211 VISIT COMPLEXITY INHERENT TO ONGOING CARE RELATED TO A PATIENT'S SINGLE, SERIOUS CONDITION OR A COMPLEX CONDITION. G9917 Doc med rsn no funct status. G9918 No funct stat perf, rsn nos. * OSION CONTROL TECHNICIAN Sign off status: Completed true * Provider: KIMMIE MCCLAIN Date: 0 09/30/2024 Generated for Matti gonzalez/Josh/Kinza on: 0 11/21/2024 03:00 PM CORROSION CONTROL TECHNICIAN History and Physical Notes * HPI (History of Present Illness) Category Sub-Category Detail Notes Category Not es History of Presenting Problem Anxiety with excessive worry, which has been long-standing Rates anxiety 5/10 with 10 being most severe. Denies recent panic attacks. Here for follow up. Sertraline increased last apt. She was in rehab for increased falls. Denies falls that resulted in injury. Depression is about the same . No significant change sine increase in sertraline. Denies side effects since sertraline increase. Anxiety its the same . No panic attacks recently. Sleep is good, getting about 10 hours nightly. Energy is low. Appetite is good. Depression Rates depression 6/1 0 with 10 being most severe. Denies SI. Suicidal ideation denies Psychosis no hx psychosis Mood lability no hx veda Past Psychiatric Hospitalizations Previous psychiatric hospitalizations Previous Psychiatric Hospitalization: No Previous medications: fluoxetine Past History of Suicidal attempt Have yo u ever attempted suicide in the past: No Functional Status Outcome Assessment Findings:: Not documented, patient is severely impaired and caregiver knowledge is limited Examination Category Sub-Category Detail Notes Category Not [...]
--- OUTSIDE RECORDS SUMMARY | 2024-11-21 15:01 | XMS_ITS | Continuity of Care Document ---
Author Organization [facility] Address [address] [place] [address] [place] [address] Phone Care Team Providers Care Reference Data Expert Name Role Phone Mitchel Peterson MD Unavailable Unavailable Advance Directives Directive Yes / No Effective Date File Name No Information Encounters Encounter Description Practice Location Reason(s) For Visit Diagnoses Date Provider Providers Copied on Encounter [facility], [id number] [place] [address] [address], [place], [place], [id number], [place] tel:[phone] [facility] No Information Dec-0 5-200 5 Kristen Grullon. [address] [facility] [place], [id number], [place]. tel:[phone] Family History Family Member Type Diagnosis Age At Onset No Information Payers Payer name Insurance type Covered democrat ID Authoriza tion(s) No Information Social History Type Description Quantity Date Captured Comments Sex Female Smoking Status No Information Chief Complaint And Reason For Visit No Information Reason For Referral Reason For Referral No Information History Of Present Illness Encounter Date Complaint History Of Prese nt Illness No Information Functional Status Date Functional Assessmen t No Information Instructions Date Instruction Additional Infor mation No Information Assessments Type Assessment Date No Information Patient Care Teams Name Effective Dates (start - stop) Status Members No Information
[2024-11-21 22:45] VITALS: BP 166/85; PULSE 69; RESP 18; O2SAT 93
[2024-11-22] VITALS (16 sets, daily range): BP systolic 125–165; BP diastolic 46–86; PULSE 68–111; RESP 16–20; TEMP 36.3–36.7; O2SAT 92–99; BMI 34.7
--- OUTSIDE RECORDS SUMMARY | 2024-11-22 00:36 | XMS_ITS ---
Author Organization [facility] vLine [facility] Address [address] [facility] [address] [place] [address] Care Team Providers Care Screen Repairer Crusher Name Role Phone Jyoti Crowell Unavailable [phone] Donna Munson Unavailable [phone] Social History Sex Assigned At : Social History Observation Description Sex Assigned At Female Encounters Encounter Location Date Provider Diagnosis [place] [address] [facility] [address] [place] [address] 07/08/2024 Donna Munson Plan Of Treatment No Information Progress Notes * MARCO A ROBBINSDOB:1944 (79 yo F)Acc No.[id number]:07/08/2024 Patient: Jael MARCO A VINCENT :1945 A ge:79 Y S ex:Female Address:[address] [place] [address], [address] * true * Date: Generated for Printi ng/Faxing/eTransmitting on: 0 11/22/2024 12:36 AM WELDER/FITTER
--- NOTE | 2024-11-22 00:37 | ECG_ITS ---
Test Date: 2024-11-22 01:09:01 Measurements Intervals [place] Rate: 79 P: -11 NH: 197 QRS: -17 QRSD: 94 T: 32 QT: 365 QTc: 418 Interpretive Statements SINUS RHYTHM INCOMPLETE RIGHT BUNDLE BRANCH BLOCK [90+ ms QRS DURATION, TERMINAL R IN V1/V2, 40+ ms S IN I/aVL/V4/V5/V6] BORDERLINE LEFTWARD AXIS ABNORMAL ECG Compared to ECG 09/03/2024 08:02:44 NO SIGNIFICANT CHANGE Electronically Signed On 11-22-2024 15:53:42 911 EMERGENCY SERVICES DISPATCHER by Josh Staton M.D.
--- OUTSIDE RECORDS SUMMARY | 2024-11-22 00:37 | XMS_ITS ---
Author Organization [facility] [employer] Address [address] [place] [address] Care Team Providers Care Fashion Model Name Role Phone Jyoti Crowell Unavailable [phone] Allergies Allergen (clinical drug ingredient) Drug/Non Drug Allergy documented on EMR Reaction Allergy Type Onset Date Status Shellfish (FN) SHELLFISH DERIVED (uncoded) Unknown Allergy 09/12/2023 Active Dilaudid Unknown Drug Allergy 09/12/2023 Active Iodine Unknown Drug Allergy 09/12/2023 Active Latex [...] Days Active Vitamin D (Ergocalciferol) 1.25 MG (95720 UT) TAKE 1 CAPSULE BY MOUTH EVERY [...] Female Encounters Encounter [facility] Date [facility] [address] [place] [address] 07/31/2024 Jyotiiván Samag Major depressive disorder, recurrent, moderate F33.1 ; [...] Reason: med follow up Progress Notes * MARCO A ROBBINS YuanDOB:1944 (79 yo F)Acc No.[id number]:07/31/2024 Patient: MARCO A PEREZ Provider: KIMMIE MCCLAIN :1945 A ge:79 Y S ex:Female Date:07/31/2024 Address:[address] [place], [place] [id number] Check In:02:01 PM CSTCheck O ut:02:12 PM BEEF RIBBER Subjective: * Chief Complaints: * F keiry [...] is fair. TELEHEALTH: pt at home in [place]. D epression screening: PHQ-9 L ittle interest [...] tool used for adult depression screening: P [facility] Health Questionnaire (PHQ-9). P ast Psychiatric [...] of a nxiety, depressed mood. C lizette S ee [facility] for details. * Medical History: * Medications: [...] DAILY Oral Vitamin D (Ergocalciferol) 1.25 MG (49834 UT) Capsule TAKE 1 CAPSULE BY MOUTH [...] Oral Taking Vitamin D (Ergocalciferol) 1.25 MG (27240 UT) Capsule TAKE 1 CAPSULE BY MOUTH [...] 9 6127 BEHAV ASSMT W/SCORE & DOCD/STAND [id number] VISIT COMPLEXITY INHERENT TO ONGOING CARE RELATED TO A PATIENT'S SINGLE, SERIOUS CONDITION OR A COMPLEX [id number] CLIN DEPRESSION SCREEN DOC * Follow Up: 2 Months (Reason: med follow up) * Billing Information: * Visit Code: 75179 OFFICE OUTPATIENT VISIT 25 MINUTES DETAILED HISTORY AND EXAM/MODERATE MEDICAL DECISION MAKING. * Procedure Codes: 15051 BEHAV ASSMT W/SCORE & DOCD/STAND INSTRUMENT. G2211 VISIT COMPLEXITY INHERENT TO ONGOING CARE RELATED TO A PATIENT'S SINGLE, SERIOUS CONDITION OR A COMPLEX CONDITION. G8431 CLIN DEPRESSION SCREEN DOC. * RIBBER Sign off status: Completed true * Provider: KIMMIE MCCLAIN Date: 09/30/2023 Generated for Printi ng/Josh/eTransmitting on: 0 11/22/2024 12:36 AM BEEF RIBBER History and Physical Notes * HPI (History [...] is fair. TELEHEALTH: [place] at home in [place] Depression Rates depression 04/17 0 with 10 [...] Screening Findings: P ositve Follow-Up for Depression: [facility] treatment assessment, Patient follow-up to [...]
--- OUTSIDE RECORDS SUMMARY | 2024-11-22 00:37 | XMS_ITS ---
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 [...] - M79.675 4 . 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 * Procedure Codes: * Sign off status: Completed true * Provider: Ronny Guerra DPM Date: 0 05/12/2024 Generated for Matti gonzalez/Josh/Kinza on: 0 11/22/2024 12:36 AM ASSISTANT MANAGER History and Physical Notes * HPI (History [...]
--- OUTSIDE RECORDS SUMMARY | 2024-11-22 00:37 | XMS_ITS | Referral Summary ---
Author Organization [facility] Physician Office Building [address] [place] [address] Care Team Prov[address] Care [address] Mechanical Engineer Name Role Phone Damari Hall MD Unavailable [phone] Apolinar Ortiz OD Unavailable [phone] Preston Goetz DO Primary Care Provider Allergies Active Allergy Reactions Criticality Noted Date [...] 11/21/2022 Assessment & Plan (11/21/2022 2:28 PM PROFESSOR OF BIBLICAL STUDIES): Discussed healthy diet and importance of regular physical activity (20- 30min/day, 150min/wk). Limited activity s/p CVA 2010, some L sided weakness remains. 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 Her examination appears similar to prior descriptions in [facility] prior medical records. 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 Her current examination appears similar to that described in prior [facility] records. She reports no seizures over the past year while taking levetiracetam 500 mg b.i.d.. I have renewed her levetiracetam is presently scheduled and I will see her back in a year. Tremor 09/27/2020 Assessment & Plan (09/27/2020 4:32 PM PROFESSOR OF BIBLICAL STUDIES): Patient has mild intention tremor seen in [...] gemfibrozil 600mg bid Last lipid panel: 02/27/23 ZQV=104, SH=472. Will update labs today. Verified phone #/address [...] gemfibrozil 600mg bid Last lipid panel: 12/13/21 SVY=767, GQ=439. Will update labs today. Verified phone #/address to contact re: results. Assessment & Plan (11/21/2022 2:23 PM PROFESSOR OF BIBLICAL STUDIES): Chronic problem, not at goal on Pravastatin 20mg. Last lipid panel: 12/13/21 JSC=464, EL=557. Increase pravastatin from 10mg to 20mg daily [...] Pravastatin Assessment & Plan (11/09/2020 2:54 PM PROFESSOR OF BIBLICAL STUDIES): Goal of treatment , LDL cholesterol less [...] therapy Assessment & Plan (10/07/2019 3:12 PM PROFESSOR OF BIBLICAL STUDIES): Goal of treatment , LDL cholesterol less [...] time. Assessment & Plan (11/21/2022 2:29 PM PROFESSOR OF BIBLICAL STUDIES): Chronic problem, WNL on recheck. Currently taking [...] Olmesartan Assessment & Plan (11/09/2020 2:54 PM PROFESSOR OF BIBLICAL STUDIES): Goal blood pressure is less than 140/85 [...] ARB Assessment & Plan (10/07/2019 3:12 PM PROFESSOR OF BIBLICAL STUDIES): Goal blood pressure is less than 140/85 Low salt diet recommended Daily aerobic exercise Continue current meds, including SULEIMAN-I or ARB Assessment & Plan (08/21/2019 4:14 PM PROFESSOR OF BIBLICAL STUDIES): Controlled on current medications. Continue plan. Type [...] and metformin Continue blood glucose monitoring with OurVinylyle Jud CGM Assessment & Plan (02/27/2023 2:50 [...] infection. Assessment & Plan (11/21/2022 2:31 PM PROFESSOR OF BIBLICAL STUDIES): Chronic problem, at goal. Forgot to bring [...] infection. Assessment & Plan (09/07/2022 2:06 PM PROFESSOR OF BIBLICAL STUDIES): Chronic problem, fairly stable per her recall. [...] recommended. Assessment & Plan (11/09/2020 2:54 PM PROFESSOR OF BIBLICAL STUDIES): Hba1c was Lab Results Component Value Date [...] loss. Assessment & Plan (08/21/2019 4:13 PM PROFESSOR OF BIBLICAL STUDIES): A1c 6.7. Reported occasional BG < 100 [...] completed Assessment & Plan (10/07/2019 3:12 PM PROFESSOR OF BIBLICAL STUDIES): With foot deformity. Pt to get diabetic shoes. Assessment & Plan (05/15/2019 4:38 PM CDT): Foot care discussed Resolved Problems Problem Noted Date Diagnosed Date Resolved Date Morbid (severe) obesity due to excess calories 05/18/2022 11/21/2022 Body mass index (BMI) 45.0-49.9, adult 05/18/2022 11/21/2022 BMI 45.0-49.9, adult ([facility]) 05/15/2019 11/21/2022 Morbid obesity ([facility]) 05/15/201903/2023 Assessment & Plan (08/21/2019 4:14 PM PROFESSOR OF BIBLICAL STUDIES): Exercise limited. Continue to focus on carb [...] hyperglycemia, without long-term current use of insulin ([facility]) EGFR Routine 02/21/2024 3:58 PM CDT Type [...] URINE ORDERABLES Adriana l Result [address] [facility] [place] [address] * eGFR (02/21/2024 3:58 PM CDT) eGFR [...] BLOOD ORDERABLES Adriana stern Result [address] [place] [address] * (ABNORMAL) Lipid panel (02/21/2024 3:58 PM [...] 02/21/2024 9:15 PM CDT us Doris Cardozo SUPERVISOR [employer]EARCH SHOP LAB BLOOD ORDERABLES Adriana l Result [address] [place] [address] * (ABNORMAL) POCT hemoglobin A1c (02/21/2024 3:04 PM CDT) Hemoglobin A1C, POC 6.6 % Blood 02/21/2024 3:04 PM CDT us Doris Cardozo SUPERVISOR [employer]EARCH SHOP POINT OF CARE TEST ORDERA BLES Final Result * DIABETES EYE EXAM (07/17/2023 7:58 AM CDT) Historical Provider MD HEALTH MAINTENANCE Final Result from Last 3 Months or Most Recently Relevant to Health Maintenance Insurance [facility] MEDICARE Care Teams Rd Mechanical Engineer Relationship Specialty Start Date End Date Preston Goetz DO [address] [place] [address] PCP - General Internal Medicine 02/21/24 Damari Hall MD Referring Physician Internal Medicine 04/10/19 Apolinar Ortiz OD [address] [place] [address] Primary Eye Care Provider Forest Ranger 10/07/19
--- OUTSIDE RECORDS SUMMARY | 2024-11-22 00:37 | XMS_ITS ---
Author Organization [facility] Address [address] [place], [place] [address] Care Team Providers Care Electric Blasting Cap Assembler Name Role Phone DANNIROBIN De La Cruz Unavailable [phone] Preston Goetz Unavailable Unavailable Allergies Allergen (clinical [...] Location Date Provider Diagnosis [facility] [address] [place], [place] [id number] 08/25/2024 ROBIN GUERRA Tinea unguium B35.1 ; [...] Name:ROBIN GUERRA, 02:40:00 PM, [address], [address], [id number], Progress Notes * MARCO A ROBBINSDOB:1944 (79 yo F)Acc No.[id number]:08/25/2024 Patient: DEVIN PEREZDINORA Bolden Provider: Ronny Guerra DPM :1945 A ge:79 Y S ex:Female Date:08/25/2024 Address:[address] [place], [place] [id number] Subjective: * Chief Complaints: * Armida bucio [...] arise) * Billing Information: * Visit Code: 44983 Office Visit, Est Pt., Level 3. * Procedure Codes: * T LINE OPERATOR Sign off status: Completed true * Provider: Ronny Guerra DPM Date: 1 10/26/2023 Generated for Matti gonzalez/Josh/eTransmitting on: 0 11/22/2024 12:36 AM SHIRT LINE OPERATOR History and Physical Notes * HPI (History [...]
--- OUTSIDE RECORDS SUMMARY | 2024-11-22 00:37 | XMS_ITS ---
Author Organization [facility] Address [address] [place], [place] [phone] Care Team Providers Care Cultural Anthropology Professor Name Role Phone MELVIN ROBIN Unavailable [phone] Preston Goetz Unavailable Unavailable REASON FOR VISIT *General care Encounters Encounter Location Date Provider Diagnosis [facility] [address] [facility] [address] [place], [place] [phone] 08/11/2024 ROBIN GUERRA Plan Of Treatment Next Appt Details Provider Name:ROBIN GUERRA, 02:40:00 PM, [address], [address], [place], [place], [id number], Progress Notes * MARCO A ROBBINSDOB:1944 (79 yo F)Acc No.[id number]:08/11/2024 Patient: Jael MARCO A VINCENT Provider: Ronny Guerra DPM :1945 A ge:79 Y S ex:Female Date:08/11/2024 Address:[address] [place], [place] [phone] Subjective: * Chief Complaints: * 1 . *General care. * Medical History: Objective: * Vitals: Assessment: Plan: * Treatment: * Billing Information: * Visit Code: * Procedure Codes: * Electronic signature of ROBIN GUERRA DPM on 11/22/2024 at 12:36 AM WAX ROOM SUPERVISOR Sign off status: Pending * Provider: Ronny Guerra DPM Date: 1 10/11/2023 Generated for Matti gonzalez/Josh/Kinza on: 0 11/22/2024 12:36 AM WAX ROOM SUPERVISOR
--- OUTSIDE RECORDS SUMMARY | 2024-11-22 00:37 | XMS_ITS | Clinical Summary ---
Author Organization [facility] Physician Office Building [address] [place] [address] Care Team Providers Care Wound Care Specialist Name Role Phone Damari Hall MD Unavailable [phone] Apolinar Ortiz OD Unavailable [phone] Preston Goetz DO Primary Care Provider [phone] Allergies Active Allergy Reactions Criticality Noted Date [...] T PO BID WITH THE MORNING AND ARTUHR MEAL 2 9 Active gemfibrozil (LOPID) 600 [...] 11/21/2022 Assessment & Plan (11/21/2022 2:28 PM 3D ARTIST): Discussed healthy diet and importance of regular physical activity (20- 30min/day, 150min/wk). Limited activity s/p CVA 2010, some L sided weakness remains. 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 Her examination appears similar to prior descriptions in [facility] prior medical records. 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 Her current examination appears similar to that described in prior [facility] records. She reports no seizures over the past year while taking levetiracetam 500 mg b.i.d.. I have renewed her levetiracetam is presently scheduled and I will see her back in a year. Tremor 09/27/2020 Assessment & Plan (09/27/2020 4:32 PM 3D ARTIST): Patient has mild intention tremor seen in [...] gemfibrozil 600mg bid Last lipid panel: 02/27/23 DWS=435, BP=147. Will update labs today. Verified phone #/address [...] gemfibrozil 600mg bid Last lipid panel: 12/13/21 QNP=747, GO=347. Will update labs today. Verified phone #/address to contact re: results. Assessment & Plan (11/21/2022 2:23 PM 3D ARTIST): Chronic problem, not at goal on Pravastatin 20mg. Last lipid panel: 12/13/21 TQT=523, YX=291. Increase pravastatin from 10mg to 20mg daily [...] Pravastatin Assessment & Plan (11/09/2020 2:54 PM 3D ARTIST): Goal of treatment , LDL cholesterol less [...] therapy Assessment & Plan (10/07/2019 3:12 PM 3D ARTIST): Goal of treatment , LDL cholesterol less [...] time. Assessment & Plan (11/21/2022 2:29 PM 3D ARTIST): Chronic problem, WNL on recheck. Currently taking [...] Olmesartan Assessment & Plan (11/09/2020 2:54 PM 3D ARTIST): Goal blood pressure is less than 140/85 [...] ARB Assessment & Plan (10/07/2019 3:12 PM 3D ARTIST): Goal blood pressure is less than 140/85 Low salt diet recommended Daily aerobic exercise Continue current meds, including SULEIMAN-I or ARB Assessment & Plan (08/21/2019 4:14 PM 3D ARTIST): Controlled on current medications. Continue plan. Type [...] and metformin Continue blood glucose monitoring with [employer] Med[employer] Jud CGM Assessment & Plan (02/27/2023 2:50 [...] infection. Assessment & Plan (11/21/2022 2:31 PM 3D ARTIST): Chronic problem, at goal. Forgot to bring [...] infection. Assessment & Plan (09/07/2022 2:06 PM 3D ARTIST): Chronic problem, fairly stable per her recall. [...] recommended. Assessment & Plan (11/09/2020 2:54 PM 3D ARTIST): Hba1c was Lab Results Component Value Date [...] loss. Assessment & Plan (08/21/2019 4:13 PM 3D ARTIST): A1c 6.7. Reported occasional BG < 100 [...] completed Assessment & Plan (10/07/2019 3:12 PM 3D ARTIST): With foot deformity. Pt to get diabetic shoes. Assessment & Plan (05/15/2019 4:38 PM CDT): Foot care discussed Resolved Problems Problem Noted Date Diagnosed Date Resolved Date Morbid (severe) obesity due to excess calories 05/18/2022 11/21/2022 Body mass index (BMI) 45.0-49.9, adult 05/18/2022 11/21/2022 BMI 45.0-49.9, adult ([facility]) 05/15/2019 11/21/2022 Morbid obesity ([facility]) 05/15/201903/2023 Assessment & Plan (08/21/2019 4:14 PM 3D ARTIST): Exercise limited. Continue to focus on carb [...] LAB URINE ORDERABLES Adriana stern Result [address] Department [place] [address] * eGFR (02/21/2024 3:58 PM CDT) eGFR [...] 02/21/2024 9:21 PM CDT us Doris Cardozo HOUSE FURNISHINGS SUPERVISOR LAB BLOOD ORDERABLES Adriana l Result [address] Department of Laboratories [place], [place] [phone] * (ABNORMAL) Lipid panel (02/21/2024 3:58 PM [...] 02/21/2024 9:15 PM CDT us Doris Cardozo HOUSE FURNISHINGS SUPERVISOR LAB BLOOD ORDERABLES Adriana l Result [address] Department [place] [address] * (ABNORMAL) POCT hemoglobin A1c (02/21/2024 3:04 PM CDT) Hemoglobin A1C, POC 6.6 % Blood 02/21/2024 3:04 PM CDT Doris Cardozo HOUSE FURNISHINGS SUPERVISOR POINT OF CARE TEST ORDERA BLES Final Result * DIABETES EYE EXAM (07/17/2023 7:58 AM CDT) us Historical Provider HEALTH MAINTENANCE Final Result from Last 3 Months or Most Recently Relevant to Health Maintenance Insurance [facility] MEDICARE Care Teams Wound Care Specialist Relationship Specialty Start Date End Date Preston Goetz DO [address] [place] [address] PCP - General Internal Medicine 02/21/24 Damari Hall MD Referring Physician Internal Medicine 04/10/19 Apolinar Ortiz OD [address] [place] [address] Primary Eye Care Provider Clinical Marketing Manager 10/07/19
--- OUTSIDE RECORDS SUMMARY | 2024-11-22 00:37 | XMS_ITS | Clinical Summary ---
Author Organization [facility] Address [address] [place] [address] Phone Care Team Providers Care Comfort Filler Name Role Phone Zoila Holley MD Primary [...] tablet Take 50 mcg by mouth daily tongue lining stitcher. Active lisinopril (PRINIVIL) 30 mg Oral tablet [...] on file Legal Sex Female 6:00 AM ONLINE ACTIVIST Gender Identity Not on file Sexual Orientation [...] 2024 Insurance MEDICARE PART A AND B [employer] OPEN ACCESS Care Teams Comfort Filler Relationship Specialty Start Date End Date Zoila Holley MD NO ADDRESS ON FILE PCP - General Neurosurgery 01/03/11
--- OUTSIDE RECORDS SUMMARY | 2024-11-22 00:38 | XMS_ITS | Continuity of Care Document ---
Author Organization [facility] Address [address] [place] [address] [place] [address] Phone Care Team Providers Care Skin Specialist Name Role Phone Mitchel Peterson MD Unavailable Unavailable Advance Directives Directive Yes / No Effective Date File Name No Information Encounters Encounter Description Practice Location Reason(s) For Visit Diagnoses Date Provider Providers Copied on [facility]counter [facility], [address] [place] [address] [address] [place], [place], [id number], [place] tel:[phone] [facility] No Information Dec-0 5-200 5 Kristen Grullon. [address] [facility] [place], [id number], [place]. tel:[phone] Family History Family Member Type Diagnosis Age At Onset No Information Payers Payer name Insurance type Covered republican ID Authoriza tion(s) No Information Social History [...]
--- OUTSIDE RECORDS SUMMARY | 2024-11-22 00:38 | XMS_ITS | Patient Health Record ---
Author Organization [facility] Address [address] [place], [place] [id number] Care Team Providers Care Licensed Mental Health Professional Name Role Phone ROBIN GUERRA Unavailable [phone] Preston Goetz Unavailable Unavailable Allergies Allergen (clinical drug ingredient) Drug/Non Drug Allergy documented on EMR Reaction Allergy Type Onset Date Status Shellfish (FN) Shellfish (uncoded) Unknown Allergy 02/11 active Iodine Unknown Drug Allergy 02/11/2015 active Latex Latex Unknown Allergy 02/11/2015 active Reason For Referral No Information Encounters Encounter Location Date Provider Diagnosis [facility] [address] [place] [id number] 01/14/2024 ROBIN SNOOK Tinea unguium B35.1 ; Pain in right toe(s) M79.674 ; Pain in left toe(s) M79.675 ; Atherosclerosis of [place] arteries of extremities with intermittent claudication, bilateral legs I70.213 and Type 2 diabetes mellitus with other circulatory complications E11.59 [facility] [address] [place] [id number] 05/12/2024 ROBIN SNOOK Tinea unguium B35.1 ; Pain in right toe(s) M79.674 ; Pain in left toe(s) M79.675 ; Atherosclerosis of [place] arteries of extremities with intermittent claudication, bilateral legs I70.213 and Type 2 diabetes mellitus with other circulatory complications E11.59 [facility] [address] [place] [address] [id number] 08/25/2024 RBOIN SNOOK Tinea unguium B35.1 ; Pain in [...] toe(s) (ICD-10 - M79.675) 01/14/2024 Atherosclerosis of [place] arteries of extremities with intermittent claudication, bilateral legs (ICD-10 - I70.213) 05/12/2024 Atherosclerosis of [place] arteries of extremities with intermittent claudication, bilateral [...] Appt Details Provider Name:ROBIN GUERRA, 02:40:00 PM, [address], [facility], [place], [place], [id number], Insurance Providers Payer Name Payer Address Payer Phone Subscriber Number Group Number Insured Name Patient Relationship to Insured Coverage Start Date Coverage End Date [employer] [address] [place] [phone] [id number] MARCO A ROBBINS Self - patient is the insured
[2024-11-22 01:05] LABS: Basophils Percent Auto 0.5 % (0.2-1.2); Eosinophils Absolute Auto 0.1 K/mm3 (0-0.3); Hematocrit 30.9 % (37.0-47.0); Hemoglobin 9.7 g/dL (12.0-15.0); Immature Granulocyte Absolute 0.16 K/mm3 (0.00-0.031); Immature Granulocyte Percent A 2.7 % (0-0.5); Lymphocytes Absolute Auto 2.03 K/mm3 (0.9-3.2); Lymphocytes Percent Auto 34.1 % (18.3-44.2); Mean Corpuscular HGB Conc 31.4 g/dl (32-36); Mean Corpuscular Volume 98.7 fl (80-100); Mean Platelet Volume 10.3 fl (7.4-10.4); Monocytes Absolute Auto 0.4 K/mm3 (0.1-0.6); Monocytes Percent Auto 6.2 % (2.6-8.5); Neutrophils Absolute Auto 3.3 K/mm3 (1.3-6.7); Neutrophils Percent Auto 54.5 % (45.5-73.1); Platelet Count Result 287 k/mm3 (150-375); Red Blood Count 3.13 M/mm3 (4.2-5.4); Red Cell Distribution Width 15.2 % (11.5-14.5)
[2024-11-22 01:14] LABS: Lactic Acid Reflex 0.8 mmol/L (0.7-2.0)
[2024-11-22 01:15] LABS: Alanine Aminotransferase 12 U/L (6-35); Albumin Level 4.2 g/dL (3.5-5.1); Alkaline Phosphatase 92 U/L (38-126); Anion Gap 14 mmol/L (4-12); Aspartate Amino Transferase 21 U/L (14-36); Bilirubin,Total 0.3 mg/dL (0.2-1.3); Blood Urea Nitrogen 31 mg/dL (7-17); Calcium 9.6 mg/dL (8.4-10.2); Carbon Dioxide 23 mmol/L (22-30); Chloride 107 mmol/L (98-107); Estimated Glomerular Filt Rate 57; Glucose 91 mg/dL (65-110); Lipase 263 U/L (23-300); Magnesium 1.7 mg/dL (1.6-2.3); Potassium 4.1 mmol/L (3.4-5.0); Sodium 144 mmol/L (137-145)
[2024-11-22 01:26] LABS: NT Pro B Type Natriuretic Pept 2140 pg/mL (19.9-100)
[2024-11-22 01:32] LABS: Add Urine Microscopic? YES; Appearance Urine Clear (Clear); Bacteria Urine None Seen /hpf; Bilirubin Urine Negative (Negative); Blood Urine Negative (Negative); Color Urine Yellow (Yellow); Glucose Urine UA Negative (Negative); Ketones Urine Negative (Negative); Leukocyte Esterase Ur 1+ LEU/UL (Negative); Nitrate Urine Negative (Negative); Non Pathogenic Casts 0-2; Protein Urine 1+ mg/dL (Negative); RBC Urine 0-2 /hpf (0-2); Specific Grav Ur 1.018 (1.001-1.035); Squamous Epithelial Cell Urine None Seen /hpf (Few); Urobilinogen Urine 0.2 mg/dL (<2.0); pH Urine 5.5 (5.0-9.0)
[2024-11-22 01:38] LABS: INR 1.1; Prothrombin Time 14.8 Seconds (11.1-14.7)
[2024-11-22 01:38] LABS: Alveolar/Arterial O2 Gradient 42.9 mmHg; Base Excess ABG -1.7 mEq/l (+/-2.0); Fractional Inspired Oxygen 21 %; HCO3 ABG 22.7 mEq/l (22.0-26.0); Oxygen Content ABG 13.2 %vol (16.0-22.0); Oxygen Saturation ABG 92.1 % (95.0-100.0); PCO2 ABG 37.3 mmHg (35.0-45.0); PO2 ABG 62.2 mmHg (80.0-100.0); PO2 FiO2 Ratio Arterial Blood 2.96 %; Total Hemoglobin 10.4 g/dL (12.0-18.0); pH ABG 7.403 (7.350-7.450)
[2024-11-22 01:39] LABS: Partial Thromboplastin Time 32.1 Seconds (22.3-36.8)
[2024-11-22 01:40] LABS: Modified Allen's Test Pass; Site Drawn RIGHT RADIAL
[2024-11-22 01:41] LABS: Device ROOM AIR
[2024-11-22 02:00] LABS: Influenza A QL RT-PCR Negative (Negative); Influenza B QL RT-PCR Negative (Negative); RSV RNA, RT-PCR Negative (Negative); SARS-CoV-2 RNA PCR Negative (Negative)
--- NOTE | 2024-11-22 03:00 | ED.GENADULT ---
HPI - General Adult General Chief complaint: Upper Respiratory Infection Stated complaint: cough, chest xray showed enlarged heart Time Seen by Provider: 11/22/24 00:02 History of Present Illness HPI narrative: Patient is a 79-year-old female who presents emergency department chief complaint of cough for the last 2 weeks. The patient reports been treated with antibiotics and steroids patient had x-ray that showed enlarged heart the patient was brought to the emergency department as the patient's family was unable to get cardiology workup for 6-8 weeks. Related Data Home Medications ?Medication ?Instructions ?Recorded ?Confirmed ?Last Taken ?Type fexofenadine 180 mg tablet 180 mg PO DAILY 10/07/19 09/03/24 09/02/24 History (Yuly Allergy) levetiracetam 500 mg tablet 500 mg PO DAILY 10/07/19 09/03/24 09/02/24 History mecobalamin (vitamin B12) 5,000 5,000 mcg PO 3XW 10/07/19 09/03/24 Unknown History mcg disintegrating tablet thiamine HCl (vitamin B1) 100 mg 100 mg PO DAILY 10/07/19 09/03/24 09/02/24 History tablet sitagliptin phosphate 100 mg 100 mg PO DAILY 10/08/19 09/03/24 09/02/24 History tablet (Januvia) exenatide microspheres 2 mg/0.85 2 mg subcut WEEKLY 04/02/20 09/03/24 08/30/24 History mL subcutaneous auto-injector (Byortega BCi) bupropion HCl 75 mg tablet 150 mg PO DAILY 04/13/21 09/03/24 09/02/24 History ergocalciferol (vitamin D2) 1,250 5,000 mcg PO WEEKLY 09/03/24 09/03/24 Unknown History mcg (50,000 unit) capsule ibuprofen 200 mg tablet (Advil) 200 mg PO TID 09/03/24 09/03/24 Unknown History pravastatin 10 mg tablet 40 mg PO DAILY 09/03/24 09/03/24 09/02/24 History sertraline 100 mg tablet 150 mg PO DAILY 09/03/24 09/03/24 09/02/24 History trospium 20 mg tablet 20 mg PO BID 09/03/24 09/03/24 09/02/24 History Allergies Allergy/AdvReac Type Severity Reaction Status Date / Time latex Allergy Unknown Rash Verified 11/21/24 14:52 iodine AdvReac Mild Dizziness Verified 11/21/24 14:52 shellfish derived AdvReac Mild dizziness Verified 11/21/24 14:52 and weakness hydromorphone (From Dilaudid) AdvReac Unknown Headache Verified 11/21/24 14:52 Review of Systems Review of Systems: A 10 system review of systems was completed on the patient and is negative except for what is stated in the HPI. Nursing and ancillary documentation was reviewed. [facility] Past Medical History Medical History Vitamin D deficiency Type 2 diabetes mellitus History of blood transfusion 2010, x2 Arthritis Vaginal delivery x3 Hypothyroidism FREIDA (obstructive sleep apnea) Compliant with CPAP Essential (primary) hypertension Depression Hyperlipidemia Seizures one since she had stroke CVA (cerebrovascular accident) 2010 with residual left hemiparesis Surgical History Surgical History History of bladder surgery 1986 History of brain surgery 2010, x2 History of hysterectomy Family History Family History Father Acute myocardial infarction Heart disease Patient's father is Hypertension Mother Heart disease Patient's mother is Hypertension Grandparent Diabetes mellitus Cerebrovascular accident Sibling Acute myocardial infarction Heart disease Patient's brother is in good health Patient's brother is Patient's sister is in good health Other Family history of cardiovascular disease Family history of congestive heart failure Social History Social History Social History: The patient lives with her of 60 years. They raised 3 children. Two of her children live locally. 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 She denies history of alcohol or tobacco use. Code status: DNR/DNI (per patient request) Surrogate decision maker: Frankie () Smoking status: Never smoker Second hand tobacco smoke exposure: Yes Alcohol intake: never Substance use: never Do You Feel Safe in your Home?: Yes Lack of Transportation: No Lack of Food: Never True Current Housing: I Have Housing Concerned About Future Housing: No Difficulty Paying Gas/Electric Bills: No Difficulty Paying for Meds: No Currently Unemployed: No Education: Bachelor's Degree Difficulty w/ Childcare or Family Care: No Spiritual care concerns: No Agree to blood products: Yes Exam Narrative: GENERAL: Well-appearing, well-nourished, and in no acute distress. HEAD: Normocephalic, atraumatic. EYES: PERRLA and EOMI. ENT: Nares clear, no rhinorrhea or epistaxis. Mucous membranes moist. NECK: Supple. CHEST: Clear to auscultation. No respiratory distress. HEART: Regular rate and rhythm. No murmur heard. Normal peripheral pulses. ABDOMEN: Soft, nontender, nondistended, normal active bowel sounds. EXTREMITIES: Normal range of motion. No edema. SKIN: Warm, dry, no rash. NEURO: No focal deficits. Alert and oriented x3. PSYCH: Normal mood and affect. Course Vital Signs Vital signs: Vital Signs Pulse Rate 69 11/21/24 22:45 Respiratory Rate 18 11/21/24 22:45 Blood Pressure 166/85 H 11/21/24 22:45 Pulse Oximetry 93 11/21/24 22:45 Pulse Rate 79 11/22/24 01:01 Respiratory Rate 18 11/22/24 01:01 Blood Pressure 144/76 H 11/22/24 01:01 Pulse Oximetry 95 11/22/24 01:01 Oxygen Delivery Room Air 11/22/24 00:26 Medical Decision Making MDM Narrative Medical decision making narrative: Differential diagnosis includes pneumonia, fluid overload, CHF, renal failure, pneumonia CT diagnostic chest showed an enlarged aorta at 4.4 cm patient had a increase in her BNP The case was discussed with the hospitalist for admission for observation Vital Signs Vital Signs: Vital Signs Pulse Rate 69 11/21/24 22:45 Respiratory Rate 18 11/21/24 22:45 Blood Pressure 166/85 H 11/21/24 22:45 Pulse Oximetry 93 11/21/24 22:45 Pulse Rate 79 11/22/24 01:01 Respiratory Rate 18 11/22/24 01:01 Blood Pressure 144/76 H 11/22/24 01:01 Pulse Oximetry 95 11/22/24 01:01 Oxygen Delivery Room Air 11/22/24 00:26 Lab Data 11/22/24 00:58 11/22/24 00:59 Labs: Lab Results 11/22/24 11/22/2411/22/25 Range/Units 00:58 00:59 01:16 WBC 6.0 (4.5-10.0) K/mm3 RBC 3.13 L (4.2-5.4) M/mm3 Hgb 9.7 L (12.0-15.0) g/dL Hct 30.9 L (37.0-47.0) % MCV 98.7 (80-100) fl MCH 31.0 (26-34) pg MCHC 31.4 L (32-36) g/dl RDW 15.2 H (11.5-14.5) % Plt Count 287 (150-375) k/mm3 MPV 10.3 (7.4-10.4) fl Immature Gran % (Auto) 2.7 H (0-0.5) % Neut % (Auto) 54.5 (45.5-73.1) % Lymph % (Auto) 34.1 (18.3-44.2) % [place] % (Auto) 6.2 (2.6-8.5) % Eos % (Auto) 2.0 (0-4.4) % Baso % (Auto) 0.5 (0.2-1.2) % Lymph # (Auto) 2.03 (0.9-3.2) K/mm3 [place] # (Auto) 0.4 (0.1-0.6) K/mm3 Eos # (Auto) 0.1 (0-0.3) K/mm3 Baso # (Auto) 0.0 (0.0-0.1) K/mm3 Abs Immat Gran (auto) 0.16 H (0.00-0.031) K/mm3 Absolute Neuts (auto) 3.3 (1.3-6.7) K/mm3 Absolute Nucleated RBC 0.000 (0.0-0.012) K/mm3 Nucleated RBC % 0.0 (0.0-0.2) % PT 14.8 H (11.1-14.7) Seconds INR 1.1 APTT 32.1 (22.3-36.8) Seconds Sodium 144 (137-145) mmol/L Potassium 4.1 (3.4-5.0) mmol/L Chloride 107 (98-107) mmol/L Carbon Dioxide 23 (22-30) mmol/L Anion Gap 14 H (4-12) mmol/L BUN 31 H (7-17) mg/dL Creatinine 0.94 (0.7-1.0) mg/dL Estim Creat Clear Calc Not Reportable Estimated GFR 57 L (59 - ) Glucose 91 (65-110) mg/dL Lactic Acid 0.8 (0.7-2.0) mmol/L Calcium 9.6 (8.4-10.2) mg/dL Magnesium 1.7 (1.6-2.3) mg/dL Total Bilirubin 0.3 (0.2-1.3) mg/dL AST 21 (14-36) U/L ALT 12 (6-35) U/L Alkaline Phosphatase 92 (38-126) U/L Troponin I 0.020 (0.000-0.034) ng/mL NT-Pro-B Natriuret Pep 2140 H (19.9-100) pg/mL Total Protein 7.0 (6.3-8.2) g/dL Albumin 4.2 (3.5-5.1) g/dL Lipase 263 (23-300) U/L Urine Color Yellow (Yellow) Urine Appearance Clear (Clear) Urine pH 5.5 (5.0-9.0) Ur Specific [place] 1.018 (1.001-1.035) Urine Protein 1+ H (Negative) mg/dL Urine Glucose (UA) Negative (Negative) mg/dL Urine Ketones Negative (Negative) mg/dL Ur Blood (Man) Negative (Negative) Urine Nitrate Negative (Negative) Urine Bilirubin Negative (Negative) Urine Urobilinogen 0.2 (<2.0) mg/dL Leukocyte Esterase Rfl 1+ H (Negative) MIRANDA/UL Urine RBC 0-2 (0-2) /hpf Urine WBC 11-20 H (0-3) /hpf Ur Squamous Epith Cells None seen (Few) /hpf Urine Bacteria None seen /hpf Urine Casts 0-2 Influenza A (RT-PCR) Negative (Negative) Influenza B (RT-PCR) Negative (Negative) RSV (RT-PCR) Negative (Negative) SARS-CoV-2 RNA (RT-PCR) Negative (Negative) ABG Data ABG results: 11/22/24 01:36 Puncture Site Right radial ABG pH 7.403 ABG pCO2 37.3 ABG pO2 62.2 L ABG PO2/FiO2 Ratio 2.96 ABG HCO3 22.7 ABG O2 Saturation 92.1 L ABG O2 Content 13.2 L ABG Base Excess -1.7 A-a Gradient 42.9 Oxyhemoglobin 90.0 Total Hemoglobin 10.4 L O2 Delivery Device Room air O2 Liters/Min Not Reportable FiO2 21 Discharge Plan Discharge Clinical Impression: CHF (congestive heart failure) Patient Disposition: Still a Patient Condition: Stable Patient Language: Macedonian Prescriptions: No Action thiamine HCl (vitamin B1) 100 mg tablet 100 mg PO DAILY levetiracetam 500 mg tablet 500 mg PO DAILY fexofenadine [Yuly Allergy] 180 mg tablet 180 mg PO DAILY mecobalamin (vitamin B12) 5,000 mcg tablet,disintegrating 5,000 mcg PO 3XW Januvia 100 mg tablet 100 mg PO DAILY Bydureon BCise 2 mg/0.85 mL auto-injector 2 mg SUB-Q WEEKLY bupropion HCl 75 mg tablet 150 mg PO DAILY sertraline 100 mg tablet 150 mg PO DAILY trospium 20 mg tablet 20 mg PO BID ibuprofen [Advil] 200 mg tablet 200 mg PO TID pravastatin 10 mg tablet 40 mg PO DAILY ergocalciferol (vitamin D2) 1,250 mcg (50,000 unit) capsule 5,000 mcg PO WEEKLY Patient Comments: unknown of last swati taken acetaminophen 325 mg Tablet 650 mg PO Q4H PRN (Reason: Mild Pain (1-3) Or Fever) Qty: 2 0RF polyethylene glycol 3350 [Miralax] 17 gram Powder In Packet 17 g PO QAM Qty: 2 0RF sennosides-docusate sodium [Senokot-S] 8.6-50 mg Tablet 1 tab PO HS Qty: 2 0RF oxycodone-acetaminophen 5-325 mg Tablet 1 tablet PO Q4H PRN (Reason: Pain Rated 7-10) Qty: 30 0RF ferrous sulfate 325 mg (65 mg iron) tablet 325 mg PO BID Qty: 180 1RF gemfibrozil 600 mg tablet 600 mg PO BID Qty: 180 3RF levothyroxine 137 mcg tablet 137 mcg PO DAILY Qty: 90 3RF metoprolol tartrate 50 mg tablet 50 mg PO Q12H Qty: 180 3RF omeprazole 20 mg capsule,delayed release(DR/EC) 20 mg PO DAILY Qty: 90 3RF olmesartan 40 mg tablet 40 mg PO DAILY Qty: 90 3RF metformin 500 mg tablet 500 mg PO BID Qty: 180 3RF folic acid 1 mg tablet 1 mg PO DAILY Qty: 90 3RF cefdinir 300 mg capsule 300 mg PO Q12H Qty: 20 0RF Follow-up/Referrals: Preston Goetz DO [Primary Care Provider] - Time of Disposition: 03:03
[2024-11-22 03:54] LABS: Troponin I 0.015 ng/mL (0.000-0.034)
--- NOTE | 2024-11-22 04:11 | ADMGEN ---
This patient, Vandana Ervin, was admitted to Medical Room 347-01. Patient/family oriented to hospital policies and general routines including ID bracelet, bed and alarms, visiting hours, pain management, procedures, bathroom and other care routines, personal items, smoking policy, room service/diet, and visiting hours. Information on how to activate the Rapid Response Team has been discussed. Patient/Family are encouraged to report perceived risks to care and to ask questions if they do not understand what they are told or what they should do.
[2024-11-22] MEDS: IPRATROPIUM 0.5 MG/ALBUTEROL SULFATE 2.5 MG AMPUL.NEB 3 ML INHALATION ×3 (07:41→20:28)
--- NOTE | 2024-11-22 08:28 | PM.IMHP ---
H&P: HPI History of Present Illness Date/Time: 11/22/24 08:28 Chief Complaint: Cough, ongoing weakness Narrative: Patient is a 79-year-old female with a PMHx: of hemorrhagic stroke in 2010 with residual left-sided weakness, OA, morbid obesity, FREIDA, hyperlipidemia, essential HTN GERD presented to the ER from a rehabilitation center due to noise weakness and recent history of multiple falls. Information is being provided by patient and spouse who is by the bedside. Patient admits history of left hemiplegia from prior CVA, she states she has been having a bowl keeping her body upright and has noticed that she leans more to the left. Patient reports that she has been treated with antibiotics and steroids due to ongoing cough for the past 2 weeks. ED work up reveals: anion gap 14, BUN done, GFR 57, BNP 2140 viral pcr negative, CT abdomen and pelvis reveals cardiomegaly my gallbladder distension which may be secondary to fasting Review of Systems Review of Systems: All systems reviewed & are unremarkable except as noted in HPI and below PMFSH Past Medical History Medical History Vitamin D deficiency Type 2 diabetes mellitus History of blood transfusion 2010, x2 Arthritis Vaginal delivery x3 Hypothyroidism FREIDA (obstructive sleep apnea) Compliant with CPAP Essential (primary) hypertension Depression Hyperlipidemia Seizures one since she had stroke CVA (cerebrovascular accident) 2010 with residual left hemiparesis Surgical History Surgical History History of bladder surgery 1986 History of brain surgery 2010, x2 History of hysterectomy Family History Family History Father Acute myocardial infarction Heart disease Patient's father is Hypertension Mother Heart disease Patient's mother is Hypertension Grandparent Diabetes mellitus Cerebrovascular accident Sibling Acute myocardial infarction Heart disease Patient's brother is in good health Patient's brother is Patient's sister is in good health Other Family history of cardiovascular disease Family history of congestive heart failure Social History Social History Social History: The patient lives with her of 60 years. They raised 3 children. Two of her children live locally. 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 She denies history of alcohol or tobacco use. Code status: DNR/DNI (per patient request) Surrogate decision maker: Frankie () Smoking status: Never smoker Second hand tobacco smoke exposure: Yes Alcohol intake: never Substance use: never Do You Feel Safe in your Home?: Yes Lack of Transportation: No Lack of Food: Never True Current Housing: I Have Housing Concerned About Future Housing: No Difficulty Paying Gas/Electric Bills: No Difficulty Paying for Meds: No Currently Unemployed: No Education: High School Diploma/GED Difficulty w/ Childcare or Family Care: No Spiritual care concerns: No Agree to blood products: Yes Meds Home Medications and Allergies Home Medications ?Medication ?Instructions ?Recorded ?Confirmed ?Type fexofenadine 180 mg tablet 180 mg PO DAILY 10/07/19 11/22/24 History (Yuly Allergy) levetiracetam 500 mg tablet 500 mg PO DAILY 10/07/19 11/22/24 History mecobalamin (vitamin B12) 5,000 5,000 mcg PO 3XW 10/07/19 11/22/24 History mcg disintegrating tablet thiamine HCl (vitamin B1) 100 mg 100 mg PO DAILY 10/07/19 11/22/24 History tablet sitagliptin phosphate 100 mg 100 mg PO DAILY 10/08/19 11/22/24 History tablet (Januvia) exenatide microspheres 2 mg/0.85 2 mg subcut WEEKLY 04/02/20 11/22/24 History mL subcutaneous auto-injector (Byortega Blake) bupropion HCl 75 mg tablet 150 mg PO DAILY 04/13/21 11/22/24 History ferrous sulfate 325 mg (65 mg 325 mg PO BID #180 tabs 11/05/23 11/22/24 Rx iron) tablet gemfibrozil 600 mg tablet 600 mg PO BID #180 tabs 11/15/23 11/22/24 Rx levothyroxine 137 mcg tablet 137 mcg PO DAILY #90 tabs 11/17/23 11/22/24 Rx metoprolol tartrate 50 mg tablet 50 mg PO Q12H #180 tabs 12/17/23 11/22/24 Rx omeprazole 20 mg capsule,delayed 20 mg PO DAILY #90 caps 12/19/23 11/22/24 Rx release olmesartan 40 mg tablet 40 mg PO DAILY #90 tabs 01/07/24 11/22/24 Rx metformin 500 mg tablet 500 mg PO BID #180 tabs 01/13/24 11/22/24 Rx folic acid 1 mg tablet 1 mg PO DAILY #90 tabs 06/16/24 11/22/24 Rx ergocalciferol (vitamin D2) 1,250 5,000 mcg PO WEEKLY 09/03/24 11/22/24 History mcg (50,000 unit) capsule ibuprofen 200 mg tablet (Advil) 200 mg PO TID 09/03/24 11/22/24 History sertraline 100 mg tablet 150 mg PO DAILY 09/03/24 11/22/24 History trospium 20 mg tablet 20 mg PO BID 09/03/24 11/22/24 History acetaminophen 325 mg tablet 650 mg (2 x 325 mg) PO Q4H PRN 09/05/24 11/22/24 Rx Mild Pain (1-3) Or Fever #2 tabs oxycodone-acetaminophen 5 mg-325 1 tablet PO Q4H PRN Pain Rated 09/05/24 11/22/24 Rx mg tablet 7-10 #30 tabs polyethylene glycol 3350 17 gram 17 g PO QAM #2 ea 09/05/24 11/22/24 Rx oral powder packet (Miralax) sennosides 8.6 mg-docusate sodium 1 tab PO HS #2 tabs 09/05/24 11/22/24 Rx 50 mg tablet (Senokot-S) cefdinir 300 mg capsule 300 mg PO Q12H #20 caps 11/17/24 11/22/24 Rx acetaminophen 325 mg-DM 10 mg/10 20 ml PO Q4H PRN cold symptoms 11/22/24 11/22/24 History mL oral liquid (Robitussin Cough-Sore Throat) lidocaine 4 %-me.salicylat 20 1 patch topical DAILY 11/22/24 11/22/24 History %-capsai 0.025 %-menth 5 % topical patch (1st Medx-Patch With Lidocaine) methylprednisolone 4 mg tablets in 4 mg PO ACHS 11/22/24 11/22/24 History a dose pack phenol 1.4 % mucosal aerosol spray 2 spray mucous membrane PRN THROAT 11/22/24 11/22/24 History (Chloraseptic Throat [place]) PAIN pravastatin 20 mg tablet 20 mg PO DAILY 11/22/24 11/22/24 History pravastatin 40 mg tablet 40 mg PO DAILY 11/22/24 11/22/24 History Allergies Allergy/AdvReac Type Severity Reaction Status Date / Time latex Allergy Unknown Rash Verified 11/21/24 14:52 iodine AdvReac Mild Dizziness Verified 11/21/24 14:52 shellfish derived AdvReac Mild dizziness Verified 11/21/24 14:52 and weakness hydromorphone (From Dilaudid) AdvReac Unknown Headache Verified 11/21/24 14:52 Vital Signs Vital Signs - 24 hr 11/21/24 22:45 11/22/24 00:26 11/22/24 01:01 Temperature Pulse Rate 69 79 Respiratory Rate 18 18 Blood Pressure 166/85 H 144/76 H Pulse Oximetry 93 97 95 Oxygen Delivery Room Air 11/22/24 04:05 11/22/24 04:17 11/22/24 06:00 Temperature 97.4 F L Pulse Rate 76 77 Respiratory Rate 17 16 Blood Pressure 137/69 128/83 Pulse Oximetry 95 93 Oxygen Delivery Room Air 11/22/24 07:46 11/22/24 07:48 Temperature Pulse Rate 68 68 Respiratory Rate 18 Blood Pressure Pulse Oximetry 98 Oxygen Delivery Room Air Exam Narrative: GENERAL: Resting in bed Well-appearing, well-nourished, and in no acute distress. HEAD: Normocephalic, atraumatic. EYES: PERRLA and EOMI. ENT: Nares clear, no rhinorrhea or epistaxis. Mucous membranes moist. NECK: Supple. CHEST: Clear to auscultation. No respiratory distress. HEART: Regular rate and rhythm. No murmur heard. Normal peripheral pulses. ABDOMEN: Soft, nontender, nondistended, normal active bowel sounds. EXTREMITIES: Normal range of motion. No edema. SKIN: Warm, dry, no rash. NEURO: No focal deficits. Alert and oriented x3. PSYCH: Normal mood and affect. H&P: Results Labs Labs: Short CBC 11/22/24 Range/Units 00:58 WBC 6.0 (4.5-10.0) K/mm3 Hgb 9.7 L (12.0-15.0) g/dL Hct 30.9 L (37.0-47.0) % Plt Count 287 (150-375) k/mm3 BMP 11/22/24 00:59 Sodium 144 Potassium 4.1 Chloride 107 Carbon Dioxide 23 BUN 31 H Creatinine 0.94 Glucose 91 Calcium 9.6 Cardiac Enzymes 11/22/24 11/22/24 Range/Units 00:59 03:29 Troponin I 0.020 0.015 D (0.000-0.034) ng/mL Liver Function 11/22/24 Range/Units 00:59 Total Bilirubin 0.3 (0.2-1.3) mg/dL AST 21 (14-36) U/L ALT 12 (6-35) U/L Alkaline Phosphatase 92 (38-126) U/L Albumin 4.2 (3.5-5.1) g/dL Urine 11/22/24 Range/Units 01:16 Urine Color Yellow (Yellow) Urine Appearance Clear (Clear) Urine pH 5.5 (5.0-9.0) Ur Specific [place] 1.018 (1.001-1.035) Urine Protein 1+ H (Negative) mg/dL Urine Glucose (UA) Negative (Negative) mg/dL Pulse Oximetry Attestation: I personally reviewed and interpreted this pulse oximetry as follows: ECG ECG completion date: 11/22/24 ECG completion time: 01:09 Prior ECG tracings: available for review Interpretation: Sinus rhythm Incomplete right bundle branch block Borderline leftward axis abnormal ecg Assessment and Plan Assessment and plan (1) Essential (primary) hypertension: Code(s): I10 - Essential (primary) hypertension Status: Acute Assessment and Plan: -continue home medication Olmesartan 40 mg p.o. daily (2) CHF (congestive heart failure): Code(s): I50.9 - Heart failure, unspecified Status: Acute Assessment and Plan: -last echocardiogram 09/04/2024 reveals: EF 65-70%, mild increase left ventricular wall thickness, grade 1 diastolic dysfunction, BNP 2140, trop neg -continue telemetry monitoring -echocardiogram pending -consult cardiology -daily weights -IV Lasix furosemide 20 mg IV push q.12 hours -strict monitoring I&O (3) FREIDA (obstructive sleep apnea): Code(s): G47.33 - Obstructive sleep apnea (adult) (pediatric) Status: Acute Assessment and Plan: chronic - home CPAP auto titrate (4) Left hemiparesis: Code(s): G81.94 - Hemiplegia, unspecified affecting left nondominant side Status: Acute Assessment and Plan: Chronic -left side weakness (5) Morbid obesity with BMI of 50.0-59.9, adult: Code(s): E66.01 - Morbid (severe) obesity due to excess calories; Z68.43 - Body mass index [BMI] 50.0-59.9, adult Status: Acute Assessment and Plan: -heart healthy diet Plan Continue home medications: VTE Prophylaxis: SCDs DIET: heart Healthy Anticipated hospital stay: >2 days Code Status: DNR Quality VTE Prophylaxis VTE prophylaxis: pharmacologic ordered Hospitalist MIPS Advance Care Plan I have confirmed that the patient's Advanced Care Plan is present, code status is documented, or surrogate decision maker is listed in patient medical record.: Yes Medication Reconciliation I have utilized all available resources to obtain, update and review the patients current medications (includes all prescriptions, OTC, herbals, cannabis, and nutritional supplements).: Yes
[2024-11-22] MEDS: FUROSEMIDE INJ 40 MG/4 ML VIAL 20 MG IV PUSH ×2 (08:43→20:39)
[2024-11-22] MEDS: gemfibroziL 600 MG TABLET PO (17:00)
[2024-11-22] MEDS: IBUPROFEN 200 MG TABLET PO (17:00)
[2024-11-22] MEDS: METOPROLOL TARTRATE 50 MG TAB PO (20:40)
[2024-11-22] MEDS: SENNA/DOCUSATE SODIUM TABLET 1 TAB PO (20:40)
[2024-11-23] VITALS (17 sets, daily range): BP systolic 104–157; BP diastolic 48–67; PULSE 60–82; RESP 16–20; TEMP 36.3–36.6; O2SAT 92–96
[2024-11-23] MEDS: LEVOTHYROXINE SODIUM 112 MCG, LEVOTHYROXINE SODIUM 25 MCG 137 MCG PO (05:22)
[2024-11-23] MEDS: IPRATROPIUM 0.5 MG/ALBUTEROL SULFATE 2.5 MG AMPUL.NEB 3 ML INHALATION ×3 (07:34→19:21)
--- NOTE | 2024-11-23 08:56 | PM.IMPN ---
Progress Note: A&P Assessment and Plan (1) Essential (primary) hypertension: Code(s): I10 - Essential (primary) hypertension Status: Acute Assessment and Plan: -continue home medication Olmesartan 40 mg p.o. daily (2) CHF (congestive heart failure): Code(s): I50.9 - Heart failure, unspecified Status: Acute Assessment and Plan: -last echocardiogram 09/04/2024 reveals: EF 65-70%, mild increase left ventricular wall thickness, grade 1 diastolic dysfunction, BNP 2140, trop neg -continue telemetry monitoring -echocardiogram pending -consult cardiology -awaiting recommendations -daily weights -IV Lasix furosemide 20 mg IV push q.12 hours -strict monitoring I&O (3) FREIDA (obstructive sleep apnea): Code(s): G47.33 - Obstructive sleep apnea (adult) (pediatric) Status: Acute Assessment and Plan: chronic - home CPAP auto titrate (4) Left hemiparesis: Code(s): G81.94 - Hemiplegia, unspecified affecting left nondominant side Status: Acute Assessment and Plan: Chronic -left side weakness p/ot ordered (5) Morbid obesity with BMI of 50.0-59.9, adult: Code(s): E66.01 - Morbid (severe) obesity due to excess calories; Z68.43 - Body mass index [BMI] 50.0-59.9, adult Status: Acute Assessment and Plan: -heart healthy diet Plan Continue home medications: VTE Prophylaxis: SCDs DIET: heart Healthy Anticipated hospital stay: >2 days Code Status: DNR Time Spent With Patient Time with patient: 25 - 35 minutes Subjective Date/time seen: 11/23/24 08:56 Interval history: Cough, ongoing weakness Patient is a 79-year-old female with a PMHx: of hemorrhagic stroke in 2010 with residual left-sided weakness, OA, morbid obesity, FREIDA, hyperlipidemia, essential HTN GERD presented to the ER from a rehabilitation center due to noise weakness and recent history of multiple falls. Patient admits history of left hemiplegia from prior CVA. Patient reports that she has been treated with antibiotics and steroids due to ongoing cough for the past 2 weeks. Of note- pt was discharged from this facility on 09/05/24 for weakness, cristóbal knee pain. Pt is seen and examined. She is resting in bed, eating breakfast (with assist). Denies chest pain, sob. REports cough but no new symptoms. PT/OT ordered Review of Systems Review of Systems: All systems reviewed & are unremarkable except as noted in HPI and below Exam Narrative: GENERAL: Resting in bed Well-appearing, well-nourished, and in no acute distress. HEAD: Normocephalic, atraumatic. EYES: PERRLA and EOMI. ENT: Nares clear, no rhinorrhea or epistaxis. Mucous membranes moist. NECK: Supple. CHEST: Clear to auscultation. No respiratory distress. HEART: Regular rate and rhythm. No murmur heard. Normal peripheral pulses. ABDOMEN: Soft, nontender, nondistended, normal active bowel sounds. EXTREMITIES: Normal range of motion. No edema. SKIN: Warm, dry, no rash. NEURO: No focal deficits. Alert and oriented x3. PSYCH: Normal mood and affect. Objective Data Vital Signs Vital Signs: Vital Signs - 24 hr 11/22/24 08:00 11/22/24 08:00 11/22/24 12:00 Temperature Pulse Rate 70 70 Respiratory Rate Blood Pressure Pulse Oximetry Oxygen Delivery Room Air Fraction of Inspired Oxygen 11/22/24 13:39 11/22/24 16:00 11/22/24 16:00 Temperature 97.4 F L Pulse Rate 70 74 98 Respiratory Rate 18 Blood Pressure 165/86 H Pulse Oximetry 99 Oxygen Delivery Fraction of Inspired Oxygen 11/22/24 19:08 11/22/24 20:00 11/22/24 20:00 Temperature 97.9 F Pulse Rate 78 111 H Respiratory Rate 16 Blood Pressure 125/46 L Pulse Oximetry 93 Oxygen Delivery Room Air Fraction of Inspired Oxygen 11/22/24 20:28 11/22/24 20:36 11/22/24 22:24 Temperature Pulse Rate 87 85 86 Respiratory Rate 18 20 Blood Pressure Pulse Oximetry 92 Oxygen Delivery CPAP Fraction of Inspired Oxygen 11/22/24 22:43 11/23/24 00:00 11/23/24 01:10 Temperature 98.1 F Pulse Rate 72 67 82 Respiratory Rate 16 Blood Pressure 143/72 H Pulse Oximetry 95 94 Oxygen Delivery CPAP Fraction of Inspired Oxygen 11/23/24 04:00 11/23/24 06:00 11/23/24 07:34 Temperature 97.4 F L Pulse Rate 60 62 Respiratory Rate 16 Blood Pressure 146/61 H Pulse Oximetry 93 95 Oxygen Delivery Room Air Fraction of Inspired Oxygen 21 11/23/24 07:34 11/23/24 07:44 Temperature Pulse Rate 65 68 Respiratory Rate 20 20 Blood Pressure Pulse Oximetry Oxygen Delivery Fraction of Inspired Oxygen Intake/Output Intake/Output: Intake & Output 11/20/24 11/21/24 11/22/24 11/24/24 23:59 23:59 23:59 00:59 Intake Total 360 440 Output Total 1450 1200 Balance -1090 -760 Meds/Results Medications: Active Medications Generic Name Dose Route Start Last Admin Trade Name Freq PRN Reason Stop Dose Admin Acetaminophen 650 mg 11/22/24 16:04 Acetaminophen 325 Mg Tablet PO Q4H PRN Mild Pain (1-3) Or Fever Albuterol/Ipratropium 3 ml 11/22/24 08:00 11/23/24 07:34 Ipratropium 0.5 Mg/Albuterol Sulfate 2.5 Mg Ampul.Neb 3 Ml INHALATION 3 ml Q6HRT SAMI Administration Bupropion HCl 150 mg 11/23/24 09:00 Bupropion Hcl 75 Mg Tablet PO DAILY SAMI Ergocalciferol 50,000 units 11/24/24 09:00 Ergocalciferol 50,000 Units Capsule PO Mo@0900 SAMI Folic Acid 1 mg 11/23/24 09:00 Folic Acid 1 Mg Tablet PO DAILY SAMI Furosemide 20 mg 11/22/24 09:00 11/22/24 20:39 Furosemide Inj 40 Mg/4 Ml Vial IV PUSH 20 mg Q12HR SAMI Administration Gemfibrozil 600 mg 11/22/24 17:00 11/22/24 17:00 Gemfibrozil 600 Mg Tablet PO 600 mg BID SAMI Administration Ibuprofen 200 mg 11/22/24 17:00 11/22/24 17:00 Ibuprofen 200 Mg Tablet PO 200 mg TID SAMI Administration Levetiracetam 500 mg 11/23/24 09:00 Levetiracetam 500 Mg Tablet PO DAILY SAMI Levothyroxine Sodium 112 mcg/ 137 mcg 11/23/24 06:30 11/23/24 05:22 Levothyroxine Sodium 25 mcg PO 137 mcg DAILY@0630 SAMI Administration Metoprolol Tartrate 50 mg 11/22/24 21:00 11/22/24 20:40 Metoprolol Tartrate 50 Mg Tab PO 50 mg Q12HR SAMI Administration Miscellaneous Information 1 each 11/22/24 00:01 Acetaminophen-Dm Is Nonformulary. Has Tylenol Prn Already. Ok To Use Guaifenesin Dm 10ml Q XX 12/22/24 00:00 CLARIFY [facility] Miscellaneous Information 1 each 11/22/24 00:01 Trospium 20mg Is Nonformulary. Can Patient Use Home Supply? XX 12/22/24 00:00 CLARIFY [facility] Miscellaneous Information 1 each 11/22/24 00:01 Bupropion 150mg Daily Ordered. External Med History Looks Like Bupropion Xl. Please Verify XX 12/22/24 00:00 CLARIFY [facility] Non-Formulary Medication 20 ml 11/22/24 16:04 Acetaminophen-Dm [Robitussin Cough-Sore Throat] PO Q4H PRN cold symptoms Non-Formulary Medication 20 mg 11/22/24 17:00 Trospium PO 12/22/24 16:59 BID [facility] Olmesartan 40 mg 11/23/24 09:00 Olmesartan Medoxomil 20 Mg Tablet PO DAILY [facility] Ondansetron HCl 4 mg 11/22/24 03:03 Ondansetron Inj 4 Mg/2 Ml Vial IV PUSH Q4H PRN Nausea Pantoprazole Sodium 40 mg 11/23/24 09:00 Pantoprazole 40 Mg Tablet PO QAM [facility] Perflutren Lipid Microsphere 0 ml 11/22/24 03:03 Perflutren Lipid Microspheres 1.5 Ml Vial Diluted To 10 Ml Total Volume IV PUSH 11/25/24 03:04 ONCE PRN adequate visualization Protocol Pravastatin Sodium 40 mg 11/23/24 09:00 Pravastatin Sodium 20 Mg Tablet PO DAILY [facility] Senna/Docusate Sodium 1 tab 11/22/24 21:00 11/22/24 20:40 Senna/Docusate Sodium Tablet PO 1 tab HS [facility] Administration Sertraline HCl 150 mg 11/23/24 09:00 Sertraline Hcl 50 Mg Tablet PO DAILY [facility] Sitagliptin Phosphate 100 mg 11/23/24 09:00 Sitagliptin Phosphate 100 Mg Tablet PO DAILY [facility] Thiamine HCl 100 mg 11/23/24 09:00 Thiamine Hcl 100 Mg Tablet PO DAILY [facility] Radiology Results: ITS Impressions Chest X-Ray 11/22/24 06:15 IMPRESSION: 1. Cardiomegaly. Chest CT 11/22/24 06:39 IMPRESSION: 1. Cardiomegaly. 2. Gallbladder distention, which may be secondary to fasting. Quality VTE Prophylaxis VTE prophylaxis: pharmacologic ordered
[2024-11-23] MEDS: THIAMINE HCL 100 MG TABLET PO (09:05)
[2024-11-23] MEDS: FUROSEMIDE INJ 40 MG/4 ML VIAL 20 MG IV PUSH ×2 (09:05→20:05)
[2024-11-23] MEDS: METOPROLOL TARTRATE 50 MG TAB PO ×2 (09:05→20:05)
[2024-11-23] MEDS: gemfibroziL 600 MG TABLET PO ×2 (09:06→17:34)
[2024-11-23] MEDS: OLMESARTAN MEDOXOMIL 20 MG TABLET 40 MG PO (09:06)
[2024-11-23] MEDS: SITagliptin PHOSPHATE 100 MG TABLET PO (09:06)
[2024-11-23] MEDS: IBUPROFEN 200 MG TABLET PO ×3 (09:06→17:33)
[2024-11-23] MEDS: SERTRALINE HCL 50 MG TABLET 150 MG PO (09:06)
[2024-11-23] MEDS: levETIRAcetam 500 MG TABLET PO (09:06)
[2024-11-23] MEDS: PANTOPRAZOLE 40 MG TABLET PO (09:06)
[2024-11-23] MEDS: FOLIC ACID 1 MG TABLET PO (09:06)
[2024-11-23] MEDS: PRAVASTATIN SODIUM 20 MG TABLET 40 MG PO (09:07)
--- NOTE | 2024-11-23 12:01 | ECG_ITS ---
Test Date: 2024-11-23 12:25:53 Measurements Intervals [place] Rate: 65 P: -16 NH: 179 QRS: -36 QRSD: 102 T: 156 QT: 429 QTc: 446 Interpretive Statements SINUS RHYTHM LEFT AXIS DEVIATION [QRS AXIS < -30] ST DEVIATION AND MODERATE T-WAVE ABNORMALITY, CONSIDER LATERAL ISCHEMIA [-0.1+ mV T-WAVE IN I/aVL/V5/V6] Compared to ECG 11/22/2024 01:09:01 T-wave abnormality now present Possible ischemia now present Incomplete right bundle-branch block no longer present Electronically Signed On 11-24-2024 11:12:57 CDT by Mk Robins M.D.
[2024-11-23 16:35] LABS: Alanine Aminotransferase 13 U/L (6-35); Alkaline Phosphatase 79 U/L (38-126); Anion Gap 17 mmol/L (4-12); Aspartate Amino Transferase 18 U/L (14-36); Bilirubin,Total 0.3 mg/dL (0.2-1.3); Blood Urea Nitrogen 36 mg/dL (7-17); Carbon Dioxide 21 mmol/L (22-30); Chloride 103 mmol/L (98-107); Estimated CRCL calculation 33 ml/min; Estimated Glomerular Filt Rate 33; Glucose 126 mg/dL (65-110); Potassium 3.6 mmol/L (3.4-5.0); Sodium 141 mmol/L (137-145)
[2024-11-23] MEDS: buPROPion HCL XL (24 HR) 150 MG TABCR PO (17:34)
[2024-11-23 17:48] LABS: Basophils Absolute Auto 0.1 K/mm3 (0.0-0.1); Basophils Percent Auto 0.9 % (0.2-1.2); Eosinophils Absolute Auto 0.2 K/mm3 (0-0.3); Eosinophils Percent Auto 3.4 % (0-4.4); Hematocrit 31.7 % (37.0-47.0); Hemoglobin 9.9 g/dL (12.0-15.0); Immature Granulocyte Absolute 0.18 K/mm3 (0.00-0.031); Immature Granulocyte Percent A 2.6 % (0-0.5); Lymphocytes Absolute Auto 1.91 K/mm3 (0.9-3.2); Lymphocytes Percent Auto 28.1 % (18.3-44.2); Mean Corpuscular HGB Conc 31.2 g/dl (32-36); Mean Corpuscular Volume 99.4 fl (80-100); Mean Platelet Volume 10.6 fl (7.4-10.4); Monocytes Absolute Auto 0.6 K/mm3 (0.1-0.6); Monocytes Percent Auto 8.4 % (2.6-8.5); Neutrophils Absolute Auto 3.9 K/mm3 (1.3-6.7); Neutrophils Percent Auto 56.6 % (45.5-73.1); Platelet Count Result 318 k/mm3 (150-375); Red Blood Count 3.19 M/mm3 (4.2-5.4); Red Cell Distribution Width 15.4 % (11.5-14.5); White Blood Count 6.8 K/mm3 (4.5-10.0)
[2024-11-23] MEDS: SENNA/DOCUSATE SODIUM TABLET 1 TAB PO (20:06)
[2024-11-24] VITALS (19 sets, daily range): BP systolic 93–126; BP diastolic 44–73; PULSE 63–86; RESP 16–20; TEMP 36.1–36.8; O2SAT 91–96
[2024-11-24] MEDS: IPRATROPIUM 0.5 MG/ALBUTEROL SULFATE 2.5 MG AMPUL.NEB 3 ML INHALATION ×4 (02:05→20:16)
--- NOTE | 2024-11-24 06:00 | ECHO_ITS ---
Patient Info Name: Vandana Ervin Age: 79 years : 1945 Gender: Female Ht: 67 in Wt: 222 lbs BSA: 2.22 m2 HR: 75 bpm BP: 118 / 53 mmHg Heart Rhythm: Sinus Rhythm Technical Quality: Fair Exam Date: 11/24/2024 10:14 AM Exam Location: Echo Lab Patient Status: Inpatient Admit Date: 11/23/2024 Staff Ordering Physician: Keny Avila MD Lathe Turner: Raven Golden RDCS Attending Provider: Keny Hahn MD Referring Physician: Margarita WATERS; Exam Type: CA echo doppler color flow Study Info Indications - CHF Complete two-dimensional, color flow and Doppler transthoracic echocardiogram is performed. Summary 1. Complete two-dimensional, color flow and Doppler transthoracic echocardiogram is performed. 2. Left ventricular chamber dimension is normal. 3. Left ventricular systolic function is normal, estimated at 65-70%. 4. There is moderate concentric increased left ventricular wall thickness. 5. The left ventricular diastolic function is grade I diastolic dysfunction. 6. E/e' 15 is elevated. 7. Left atrial chamber dimension is mildly enlarged. 8. There is moderate aortic valve sclerosis. 9. There is mild aortic valve stenosis with a peak velocity of 185 cm/s, mean gradient of 6 mmHg, and aortic valve area of 2.1 cm2. 10. There is mild aortic valve regurgitation. 11. The mitral valve has moderately calcified annulus. Left Ventricle E/e' 15 is elevated. Left ventricular chamber dimension is normal. Left ventricular systolic function is normal, estimated at 65-70%. There is moderate concentric increased left ventricular wall thickness. The left ventricular diastolic function is grade I diastolic dysfunction. Right Ventricle Right ventricular chamber dimension is normal. Right ventricular systolic function is normal. Left Atria Left atrial chamber dimension is mildly enlarged. Right Atria Right atrial chamber dimension is normal. Aortic Valve The aortic valve is trileaflet. There is moderate aortic valve sclerosis. There is mild aortic valve stenosis with a peak velocity of 185 cm/s, mean gradient of 6 mmHg, and aortic valve area of 2.1 cm2. There is mild aortic valve regurgitation. Pulmonic Valve There is no pulmonic regurgitation. Mitral Valve The mitral valve has moderately calcified annulus. There is no mitral valve stenosis. There is no mitral valve regurgitation. Tricuspid Valve There is no tricuspid valve regurgitation. Pericardium/Pleural There is no pericardial effusion. Inferior Vena Cava Normal inferior vena cava with >50% collapse upon inspiration consistent with normal right atrial pressure, 5 mmHg. Aorta The aortic root size at the sinus of Valsalva is normal. Left Ventricular Outflow Tract Name Value Normal LVOT 2D LVOT Diameter 2.0 cm LVOT Doppler LVOT Peak Gradient 4 mmHg LVOT Mean Gradient 2 mmHg LVOT VTI 20 cm LVOT VTI/AV VTI Ratio 0.7 LVOT Stroke Volume 66 ml LVOT CO 4.4 l/min LVOT CI 2.0 l/min/m2 Pulmonic Valve Name Value Normal RVOT Doppler RVOT Peak Gradient 3 mmHg PV Doppler PV Peak Gradient 5 mmHg Mitral Valve Name Value Normal MV Doppler MV Decel Ector 272 cm/s2 MV PHT 84 ms MV Area (PHT) 2.6 cm2 4.0-5.0 MV Diastolic Function MV E Peak Velocity 79 cm/s MV A Peak Velocity 102 cm/s MV E/A 0.8 MV Decel Time 291 ms MV Annular TDI MV E/e' (Septal) 16.3 <=8.0 MV E/e' (Lateral) 15.2 <=8.0 MV E/e' (Average) 15.7 Tricuspid Valve Name Value Normal Estimated PAP/RSVP RA Pressure 5 mmHg <=5 Aorta Name Value Normal Ascending Aorta Ao Root Diameter (MM) 2.8 cm Ao Root Diam Index (MM) 1.3 cm/m2 Aortic Valve Name Value Normal AV Doppler AV Peak Velocity 185 cm/s AV Peak Gradient 14 mmHg AV Mean Gradient 6 mmHg AV VTI 31 cm AV Area (Cont Eq VTI) 2.1 cm2 >=3.0 AV Area (Cont Eq Matthew) 1.8 cm2 AV Regurgitation 2D LVOT Area 3.3 cm2 Ventricles Name Value Normal LV Dimensions 2D/MM IVS Diastolic Thickness (2D) 1.4 cm 0.6-1.0 LVID Diastole (2D) 4.3 cm 3.8-5.2 LVIW Diastolic Thickness (2D) 1.4 cm 0.6-0.9 LVID Systole (2D) 2.9 cm 2.2-3.5 LVOT Diameter 2.0 cm LV Mass (2D Cubed) 231.65 g 67.00-162.00 LV Mass Index (2D Cubed) 104 g/m2 43-95 Relative Wall Thickness (2D) 0.65 LV Fractional Shortening/Ejection Fraction 2D/MM LV Fractional Shortening (2D) 32 % 27-45 LV EF (2D Teicholz) 60 % 54-74 LV Diastolic Volume (4C MOD) 64 ml LV EF (4C MOD) 73 % LV Diastolic Volume (2C MOD) 58 ml LV EF (2C MOD) 69 % LV Diastolic Volume (BP MOD) 62 ml 46-106 LV Diastolic Volume Index (BP MOD) 28 ml/m2 29-61 LV Systolic Volume (BP MOD) 17 ml 14-42 LV Systolic Volume Index (BP MOD) 8 ml/m2 8-24 LV EF (BP MOD) 72 % 54-74 LV Diastolic Length (4C) 7.1 cm LV Systolic Length (4C) 5.4 cm LV Stroke Volume (4C MOD) 47 ml Atria Name Value Normal LA Dimensions LA Dimension (MM) 3.7 cm 2.7-3.8 LA Volume (4C A-L) 58 ml LA Volume (BP A-L) 49 ml RA Dimensions RA Area (4C) 11.7 cm2 <=18.0 Report Signatures
[2024-11-24] MEDS: LEVOTHYROXINE SODIUM 112 MCG, LEVOTHYROXINE SODIUM 25 MCG 137 MCG PO (06:34)
--- NOTE | 2024-11-24 08:46 | PHAR ---
HOME MED VERIFIED=JESUS [id number] TROSPIUM CL 20 MG 1 TAB BID. WHITE ROUND Ta AB IMPRINTED HP 530.
--- NOTE | 2024-11-24 08:51 | PM.IMPN ---
Progress Note: A&P Assessment and Plan (1) Essential (primary) hypertension: Code(s): I10 - Essential (primary) hypertension Status: Acute Assessment and Plan: -continue home medication Olmesartan 40 mg p.o. daily (2) CHF (congestive heart failure): Code(s): I50.9 - Heart failure, unspecified Status: Acute Assessment and Plan: -last echocardiogram 09/04/2024 reveals: EF 65-70%, mild increase left ventricular wall thickness, grade 1 diastolic dysfunction, BNP 2140, trop neg -continue telemetry monitoring -echocardiogram pending for today -consult cardiology -awaiting recommendations -daily weights -IV Lasix furosemide 20 mg IV push q.12 hours -strict monitoring I&O (3) FREIDA (obstructive sleep apnea): Code(s): G47.33 - Obstructive sleep apnea (adult) (pediatric) Status: Acute Assessment and Plan: chronic - home CPAP auto titrate (4) Left hemiparesis: Code(s): G81.94 - Hemiplegia, unspecified affecting left nondominant side Status: Acute Assessment and Plan: Chronic -left side weakness p/ot ordered- as pt and want to go home now instead of [facility] (5) Morbid obesity with BMI of 50.0-59.9, adult: Code(s): E66.01 - Morbid (severe) obesity due to excess calories; Z68.43 - Body mass index [BMI] 50.0-59.9, adult Status: Acute Assessment and Plan: -heart healthy diet Plan Continue home medications: VTE Prophylaxis: SCDs DIET: heart Healthy Anticipated hospital stay: >2 days Code Status: DNR Time Spent With Patient Time with patient: 25 - 35 minutes Subjective Date/time seen: 11/24/24 08:51 Interval history: Cough, ongoing weakness Patient is a 79-year-old female with a PMHx: of hemorrhagic stroke in 2010 with residual left-sided weakness, OA, morbid obesity, FREIDA, hyperlipidemia, essential HTN GERD presented to the ER from a rehabilitation center due to noise weakness and recent history of multiple falls. Patient admits history of left hemiplegia from prior CVA. Patient reports that she has been treated with antibiotics and steroids due to ongoing cough for the past 2 weeks. Of note- pt was discharged from this facility on 09/05/24 for weakness, cristóbal knee pain. 11/24 was called topt room and was upset as no updates were provided. Updated on pt's condition and plan. Pt's wants cardiology to see pt and manage CHF and optimize treatment. He is not very pleased with [facility] and wants pt to go home - he has hospital bed and trying to make an arrangements to have safe environment for her at home. Pt reports uneventful night. No chest pain. Echo is scheduled for today. IV lasix Review of Systems Review of Systems: All systems reviewed & are unremarkable except as noted in HPI and below Exam Narrative: GENERAL: Resting in bed Well-appearing, well-nourished, and in no acute distress. HEAD: Normocephalic, atraumatic. EYES: PERRLA and EOMI. ENT: Nares clear, no rhinorrhea or epistaxis. Mucous membranes moist. NECK: Supple. CHEST: Clear to auscultation. No respiratory distress. HEART: Regular rate and rhythm. No murmur heard. Normal peripheral pulses. ABDOMEN: Soft, nontender, nondistended, normal active bowel sounds. EXTREMITIES: Normal range of motion. No edema. SKIN: Warm, dry, no rash. NEURO: No focal deficits. Alert and oriented x3. PSYCH: Normal mood and affect. Objective Data Vital Signs Vital Signs: Vital Signs - 24 hr 11/23/24 09:05 11/23/24 12:00 11/23/24 12:00 Temperature 97.6 F Pulse Rate 68 65 66 Respiratory Rate 18 Blood Pressure 110/48 L Pulse Oximetry 93 Oxygen Delivery Fraction of Inspired Oxygen 11/23/24 13:28 11/23/24 13:28 11/23/24 13:41 Temperature Pulse Rate 60 62 Respiratory Rate 20 20 Blood Pressure Pulse Oximetry 96 Oxygen Delivery Room Air Fraction of Inspired Oxygen 11/23/24 16:00 11/23/24 19:21 11/23/24 19:21 Temperature 97.9 F Pulse Rate 63 65 Respiratory Rate 18 20 Blood Pressure 113/55 L Pulse Oximetry 93 92 Oxygen Delivery Room Air Fraction of Inspired Oxygen 11/23/24 19:30 11/23/24 20:00 11/23/24 20:00 Temperature Pulse Rate 67 74 Respiratory Rate 20 Blood Pressure Pulse Oximetry Oxygen Delivery Room Air Fraction of Inspired Oxygen 11/23/24 21:18 11/23/24 22:54 11/24/24 00:00 Temperature 97.5 F L Pulse Rate 69 73 Respiratory Rate 16 Blood Pressure 104/61 Pulse Oximetry 93 93 Oxygen Delivery CPAP Fraction of Inspired Oxygen 11/24/24 00:30 11/24/24 02:05 11/24/24 02:05 Temperature 98.3 F Pulse Rate 70 68 68 Respiratory Rate 16 16 Blood Pressure 118/52 L Pulse Oximetry 94 93 Oxygen Delivery CPAP Fraction of Inspired Oxygen 11/24/24 02:15 11/24/24 04:00 11/24/24 05:35 Temperature 97.7 F Pulse Rate 71 72 75 Respiratory Rate 16 18 Blood Pressure 118/53 L Pulse Oximetry 96 Oxygen Delivery Fraction of Inspired Oxygen Intake/Output Intake/Output: Intake & Output 11/21/24 11/22/24 11/24/24 11/24/24 23:59 23:59 00:59 23:59 Intake Total 360 1220 300 Output Total 1450 1700 1000 Balance -1090 -480 -700 Meds/Results Medications: Active Medications Generic Name Dose Route Start Last Admin Trade Name Freq PRN Reason Stop Dose Admin Acetaminophen 650 mg 11/22/24 16:04 Acetaminophen 325 Mg Tablet PO Q4H PRN Mild Pain (1-3) Or Fever Albuterol/Ipratropium 3 ml 11/22/24 08:00 11/24/24 02:05 Ipratropium 0.5 Mg/Albuterol Sulfate 2.5 Mg Ampul.Neb 3 Ml INHALATION 3 ml Q6HRT SAMI Administration Bupropion HCl 150 mg 11/23/24 13:35 11/23/24 17:34 Bupropion Hcl Xl (24 Hr) 150 Mg Tabcr PO 150 mg QAM SAMI Administration Ergocalciferol 50,000 units 11/24/24 09:00 Ergocalciferol 50,000 Units Capsule PO Mo@0900 SAMI Folic Acid 1 mg 11/23/24 09:00 11/23/24 09:06 Folic Acid 1 Mg Tablet PO 1 mg DAILY SAMI Administration Furosemide 20 mg 11/22/24 09:00 11/23/24 20:05 Furosemide Inj 40 Mg/4 Ml Vial IV PUSH 20 mg Q12HR SAMI Administration Gemfibrozil 600 mg 11/22/24 17:00 11/23/24 17:34 Gemfibrozil 600 Mg Tablet PO 600 mg BID SAMI Administration Ibuprofen 200 mg 11/22/24 17:00 11/23/24 17:33 Ibuprofen 200 Mg Tablet PO 200 mg TID SAMI Administration Levetiracetam 500 mg 11/23/24 09:00 11/23/24 09:06 Levetiracetam 500 Mg Tablet PO 500 mg DAILY SAMI Administration Levothyroxine Sodium 112 mcg/ 137 mcg 11/23/24 06:30 11/24/24 06:34 Levothyroxine Sodium 25 mcg PO 137 mcg DAILY@0630 SAMI Administration Metoprolol Tartrate 50 mg 11/22/24 21:00 11/23/24 20:05 Metoprolol Tartrate 50 Mg Tab PO 50 mg Q12HR SAMI Administration Miscellaneous Information 1 each 11/22/24 00:01 Please Send Home Med Trospium To Pharmacy For Verification When Available XX 12/22/24 00:00 CLARIFY SAMI Non-Formulary Medication 20 mg 11/22/24 17:00 Trospium PO 12/22/24 16:59 BID SAMI Olmesartan 40 mg 11/23/24 09:00 11/23/24 09:06 Olmesartan Medoxomil 20 Mg Tablet PO 40 mg DAILY [facility]I Administration Ondansetron HCl 4 mg 11/22/24 03:03 Ondansetron Inj 4 Mg/2 Ml Vial IV PUSH Q4H PRN Nausea Pantoprazole Sodium 40 mg 11/23/24 09:00 11/23/24 09:06 Pantoprazole 40 Mg Tablet PO 40 mg QAM SAMI Administration Perflutren Lipid Microsphere 0 ml 11/22/24 03:03 Perflutren Lipid Microspheres 1.5 Ml Vial Diluted To 10 Ml Total Volume IV PUSH 11/25/24 03:04 ONCE PRN adequate visualization Protocol Pravastatin Sodium 40 mg 11/23/24 09:00 11/23/24 09:07 Pravastatin Sodium 20 Mg Tablet PO 40 mg DAILY SAMI Administration Senna/Docusate Sodium 1 tab 11/22/24 21:00 11/23/24 20:06 Senna/Docusate Sodium Tablet PO 1 tab HS SAMI Administration Sertraline HCl 150 mg 11/23/24 09:00 11/23/24 09:06 Sertraline Hcl 50 Mg Tablet PO 150 mg DAILY SAMI Administration Sitagliptin Phosphate 100 mg 11/23/24 09:00 11/23/24 09:06 Sitagliptin Phosphate 100 Mg Tablet PO 100 mg DAILY SAMI Administration Thiamine HCl 100 mg 11/23/24 09:00 11/23/24 09:05 Thiamine Hcl 100 Mg Tablet PO 100 mg DAILY SAMI Administration Radiology Results: ITS Impressions Chest X-Ray 11/22/24 06:15 IMPRESSION: 1. Cardiomegaly. Chest CT 11/22/24 06:39 IMPRESSION: 1. Cardiomegaly. 2. Gallbladder distention, which may be secondary to fasting. Labs Labs: Laboratory Results - last 24 hr 11/23/24 11/23/24 16:16 17:35 WBC 6.8 RBC 3.19 L Hgb 9.9 L Hct 31.7 L MCV 99.4 MCH 31.0 MCHC 31.2 L RDW 15.4 H Plt Count 318 MPV 10.6 H Immature Gran % (Auto) 2.6 H Neut % (Auto) 56.6 Lymph % (Auto) 28.1 [place] % (Auto) 8.4 Eos % (Auto) 3.4 Baso % (Auto) 0.9 Lymph # (Auto) 1.91 [place] # (Auto) 0.6 Eos # (Auto) 0.2 Baso # (Auto) 0.1 Abs Immat Gran (auto) 0.18 H Absolute Neuts (auto) 3.9 Absolute Nucleated RBC 0.000 Nucleated RBC % 0.0 Sodium 141 Potassium 3.6 Chloride 103 Carbon Dioxide 21 L Anion Gap 17 H BUN 36 H Creatinine 1.50 H Estim Creat Clear Calc 33 Estimated GFR 33 L Glucose 126 H Calcium 9.0 Total Bilirubin 0.3 AST 18 ALT 13 Alkaline Phosphatase 79 Total Protein 7.0 Albumin 4.0 Quality VTE Prophylaxis VTE prophylaxis: pharmacologic ordered
--- NOTE | 2024-11-24 10:00 | P.CDI_ITS ---
<Statement entered by Martha Esteves APRN - 11/24/24 13:22> acute, unknown This documentation has been reviewed and approved. CDI Query Clarification Request Please specify type and acuity of heart failure if known. * Acute * Chronic * Acute on Chronic * Unknown * Systolic * Diastolic * Combined Systolic and Diastolic * Unknown Medical chart reflects the following: (2) CHF (congestive heart failure): Code(s): I50.9 - Heart failure, unspecified Status: Acute Assessment and Plan: -last echocardiogram 09/04/2024 reveals: EF 65-70%, mild increase left ventricular wall thickness, grade 1 diastolic dysfunction, BNP 2140, trop neg -continue telemetry monitoring -echocardiogram pending -consult cardiology -awaiting recommendations -daily weights -IV Lasix furosemide 20 mg IV push q.12 hours -strict monitoring I&O
[2024-11-24] MEDS: PANTOPRAZOLE 40 MG TABLET PO (10:34)
[2024-11-24] MEDS: levETIRAcetam 500 MG TABLET PO (10:34)
[2024-11-24] MEDS: SERTRALINE HCL 50 MG TABLET 150 MG PO (10:34)
[2024-11-24] MEDS: PRAVASTATIN SODIUM 20 MG TABLET 40 MG PO (10:34)
[2024-11-24] MEDS: SITagliptin PHOSPHATE 100 MG TABLET PO (10:35)
[2024-11-24] MEDS: IBUPROFEN 200 MG TABLET PO ×3 (10:35→17:35)
[2024-11-24] MEDS: METOPROLOL TARTRATE 50 MG TAB PO ×2 (10:35→20:07)
[2024-11-24] MEDS: gemfibroziL 600 MG TABLET PO ×2 (10:35→17:36)
[2024-11-24] MEDS: OLMESARTAN MEDOXOMIL 20 MG TABLET 40 MG PO (10:35)
[2024-11-24] MEDS: FUROSEMIDE INJ 40 MG/4 ML VIAL 20 MG IV PUSH ×2 (10:37→20:06)
[2024-11-24] MEDS: FOLIC ACID 1 MG TABLET PO (10:37)
[2024-11-24] MEDS: THIAMINE HCL 100 MG TABLET PO (10:37)
[2024-11-24] MEDS: buPROPion HCL XL (24 HR) 150 MG TABCR PO (10:42)
[2024-11-24] MEDS: ERGOCALCIFEROL 50,000 UNITS CAPSULE 50000 UNITS PO (10:43)
--- NOTE | 2024-11-24 12:54 | PM.CNCAR ---
Assessment and Plan Assessment and plan (1) CHF (congestive heart failure): Code(s): I50.9 - Heart failure, unspecified Status: Acute Assessment and Plan: Clinically she does not have any signs or symptoms of congestive heart failure. Her chest xray did not demonstrate any pulmonary edema or pleural effusions. Echocardiogram is pending but unless there are any significant changes from her prior study I would not anticipate any changes to the current plan. I would recommend discontinuing IV furosemide as she is not volume overloaded and her BUN is increasing, indicating prerenal azotemia. Cardiology will sign off. Please call with any questions. (2) Essential (primary) hypertension: Code(s): I10 - Essential (primary) hypertension Status: Acute Assessment and Plan: At goal. (3) Hyperlipidemia: Code(s): E78.5 - Hyperlipidemia, unspecified Status: Acute Assessment and Plan: Continue pravastatin. History of Present Illness History of Present Illness Consult date/time: 11/24/24 12:54 Requesting physician: Martha Esteves APRN Consult reason: congestive heart failure Reason For Visit: CHF, shortness of breath Narrative: Vandana Ervin is a 79 year old female with no known cardiac history who presents to the hospital because of cough and congestion. Cardiology has been consulted for congestive heart failure. Vandana denies having any lower extremity edema, shortness of breath, orthopnea, chest pain, or palpitations. She complains of bilateral knee pain which apparently is chronic. She had an echocardiogram performed here in 2023 that showed normal LV systolic function and no significant valvular pathology. She states at this point she is not feeling much different than she did when she entered the hospital. Review of Systems Review of Systems: All systems reviewed & are unremarkable except as noted in HPI and below PMFSH Past Medical History Medical History Vitamin D deficiency Type 2 diabetes mellitus History of blood transfusion 2010, x2 Arthritis Vaginal delivery x3 Hypothyroidism FREIDA (obstructive sleep apnea) Compliant with CPAP Essential (primary) hypertension Depression Hyperlipidemia Seizures one since she had stroke CVA (cerebrovascular accident) 2010 with residual left hemiparesis Surgical History Surgical History History of bladder surgery 1986 History of brain surgery 2011, x2 History of hysterectomy Family History Family History Father Acute myocardial infarction Heart disease Patient's father is Hypertension Mother Heart disease Patient's mother is Hypertension Grandparent Diabetes mellitus Cerebrovascular accident Sibling Acute myocardial infarction Heart disease Patient's brother is in good health Patient's brother is Patient's sister is in good health Other Family history of cardiovascular disease Family history of congestive heart failure Social History Social History Social History: The patient lives with her of 60 years. They raised 3 children. Two of her children live locally. 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 She denies history of alcohol or tobacco use. Code status: DNR/DNI (per patient request) Surrogate decision maker: Frankie () Smoking status: Never smoker Second hand tobacco smoke exposure: Yes Alcohol intake: never Substance use: never Do You Feel Safe in your Home?: Yes Lack of Transportation: No Lack of Food: Never True Current Housing: I Have Housing Concerned About Future Housing: No Difficulty Paying Gas/Electric Bills: No Difficulty Paying for Meds: No Currently Unemployed: No Education: High School Diploma/GED Difficulty w/ Childcare or Family Care: No Spiritual care concerns: No Agree to blood products: Yes Meds Home Medications and Allergies Home Medications ?Medication ?Instructions ?Recorded ?Confirmed ?Type fexofenadine 180 mg tablet 180 mg PO DAILY 10/07/19 11/22/24 History ([place] Allergy) levetiracetam 500 mg tablet 500 mg PO DAILY 10/07/19 11/22/24 History mecobalamin (vitamin B12) 5,000 5,000 mcg PO 3XW 10/07/19 11/22/24 History mcg disintegrating tablet thiamine HCl (vitamin B1) 100 mg 100 mg PO DAILY 10/07/19 11/22/24 History tablet sitagliptin phosphate 100 mg 100 mg PO DAILY 10/08/19 11/22/24 History tablet (Januvia) exenatide microspheres 2 mg/0.85 2 mg subcut WEEKLY 04/02/20 11/22/24 History mL subcutaneous auto-injector (Bydureon BCise) bupropion HCl 75 mg tablet 150 mg PO DAILY 04/13/21 11/22/24 History ferrous sulfate 325 mg (65 mg 325 mg PO BID #180 tabs 11/05/23 11/22/24 Rx iron) tablet gemfibrozil 600 mg tablet 600 mg PO BID #180 tabs 11/15/23 11/22/24 Rx levothyroxine 137 mcg tablet 137 mcg PO DAILY #90 tabs 11/17/23 11/22/24 Rx metoprolol tartrate 50 mg tablet 50 mg PO Q12H #180 tabs 12/17/23 11/22/24 Rx omeprazole 20 mg capsule,delayed 20 mg PO DAILY #90 caps 12/19/23 11/22/24 Rx release olmesartan 40 mg tablet 40 mg PO DAILY #90 tabs 01/07/24 11/22/24 Rx metformin 500 mg tablet 500 mg PO BID #180 tabs 01/13/24 11/22/24 Rx folic acid 1 mg tablet 1 mg PO DAILY #90 tabs 06/16/24 11/22/24 Rx ergocalciferol (vitamin D2) 1,250 5,000 mcg PO WEEKLY 09/03/24 11/22/24 History mcg (50,000 unit) capsule ibuprofen 200 mg tablet (Advil) 200 mg PO TID 09/03/24 11/22/24 History sertraline 100 mg tablet 150 mg PO DAILY 09/03/24 11/22/24 History trospium 20 mg tablet 20 mg PO BID 09/03/24 11/22/24 History acetaminophen 325 mg tablet 650 mg (2 x 325 mg) PO Q4H PRN 09/05/24 11/22/24 Rx Mild Pain (1-3) Or Fever #2 tabs oxycodone-acetaminophen 5 mg-325 1 tablet PO Q4H PRN Pain Rated 09/05/24 11/22/24 Rx mg tablet 7-10 #30 tabs polyethylene glycol 3350 17 gram 17 g PO QAM #2 ea 09/05/24 11/22/24 Rx oral powder packet (Miralax) sennosides 8.6 mg-docusate sodium 1 tab PO HS #2 tabs 09/05/24 11/22/24 Rx 50 mg tablet (Senokot-S) cefdinir 300 mg capsule 300 mg PO Q12H #20 caps 11/17/24 11/22/24 Rx acetaminophen 325 mg-DM 10 mg/10 20 ml PO Q4H PRN cold symptoms 11/22/24 11/22/24 History mL oral liquid (Robitussin Cough-Sore Throat) lidocaine 4 %-me.salicylat 20 1 patch topical DAILY 11/22/24 11/22/24 History %-capsai 0.025 %-menth 5 % topical patch (1st Medx-Patch With Lidocaine) methylprednisolone 4 mg tablets in 4 mg PO ACHS 11/22/24 11/22/24 History a dose pack phenol 1.4 % mucosal aerosol spray 2 spray mucous membrane PRN THROAT 11/22/24 11/22/24 History (Chloraseptic Throat [place]) PAIN pravastatin 20 mg tablet 20 mg PO DAILY 11/22/24 11/22/24 History pravastatin 40 mg tablet 40 mg PO DAILY 11/22/24 11/22/24 History Allergies Allergy/AdvReac Type Severity Reaction Status Date / Time latex Allergy Unknown Rash Verified 11/21/24 14:52 iodine AdvReac Mild Dizziness Verified 11/21/24 14:52 shellfish derived AdvReac Mild dizziness Verified 11/21/24 14:52 and weakness hydromorphone (From Dilaudid) AdvReac Unknown Headache Verified 11/21/24 14:52 Vital Signs Vital Signs - 24 hr 11/23/24 13:28 11/23/24 13:28 11/23/24 13:41 Temperature Pulse Rate 60 62 Respiratory Rate 20 20 Blood Pressure Pulse Oximetry 96 Oxygen Delivery Room Air Fraction of Inspired Oxygen 11/23/24 16:00 11/23/24 19:21 11/23/24 19:21 Temperature 36.6 C Pulse Rate 63 65 Respiratory Rate 18 20 Blood Pressure 113/55 L Pulse Oximetry 93 92 Oxygen Delivery Room Air Fraction of Inspired Oxygen 11/23/24 19:30 11/23/24 20:00 11/23/24 20:00 Temperature Pulse Rate 67 74 Respiratory Rate 20 Blood Pressure Pulse Oximetry Oxygen Delivery Room Air Fraction of Inspired Oxygen 11/23/24 21:18 11/23/24 22:54 11/24/24 00:00 Temperature 36.4 C L Pulse Rate 69 73 Respiratory Rate 16 Blood Pressure 104/61 Pulse Oximetry 93 93 Oxygen Delivery CPAP Fraction of Inspired Oxygen 11/24/24 00:30 11/24/24 02:05 11/24/24 02:05 Temperature 36.8 C Pulse Rate 70 68 68 Respiratory Rate 16 16 Blood Pressure 118/52 L Pulse Oximetry 94 93 Oxygen Delivery CPAP Fraction of Inspired Oxygen 11/24/24 02:15 11/24/24 04:00 11/24/24 05:35 Temperature 36.5 C Pulse Rate 71 72 75 Respiratory Rate 16 18 Blood Pressure 118/53 L Pulse Oximetry 96 Oxygen Delivery Fraction of Inspired Oxygen 11/24/24 08:00 11/24/24 08:57 11/24/24 08:57 Temperature 36.4 C L Pulse Rate 85 79 79 Respiratory Rate 18 20 20 Blood Pressure 107/44 L Pulse Oximetry 93 93 Oxygen Delivery Room Air Fraction of Inspired Oxygen 11/24/24 09:07 11/24/24 09:22 11/24/24 10:35 Temperature Pulse Rate 78 86 Respiratory Rate 20 Blood Pressure Pulse Oximetry Oxygen Delivery Room Air Fraction of Inspired Oxygen 11/24/24 11:44 11/24/24 12:00 Temperature 36.2 C L Pulse Rate 66 Respiratory Rate 18 Blood Pressure 93/73 L Pulse Oximetry 93 Oxygen Delivery Room Air Fraction of Inspired Oxygen Exam Const: General: comfortable, no acute distress, alert and awake Orientation/consciousness: patient oriented x3 HENMT: Head: normal to inspection Eyes: General: appearance normal, both eyes and all related structures Pupils: Equal, round and reactive pupils present Neck: Neck: normal visual inspection and supple Carotids: normal carotid upstroke Resp: Effort & Inspection: normal respiratory effort Auscultation: clear to auscultation bilaterally Cardio: Rate: regular rate Rhythm: regular rhythm Heart sounds: S1 normal heart sound present, S2 normal heart sound present and no murmurs GI: Auscultation: normal bowel sounds Skin: General skin exam: normal color Neuro: General: patient oriented x3 Cranial nerves: Yes Equal, round and reactive pupils present Extrem: General: normal to inspection Other: no edema Psych: Appearance: grossly normal Mental Status: mental status grossly normal Results Labs and Meds 11/25/24 07:22 11/25/24 07:22 Lab results: Cardiac Enzymes 11/23/24 Range/Units 16:16 AST 18 (14-36) U/L CBC 11/23/24 Range/Units 17:35 WBC 6.8 (4.5-10.0) K/mm3 RBC 3.19 L (4.2-5.4) M/mm3 Hgb 9.9 L (12.0-15.0) g/dL Hct 31.7 L (37.0-47.0) % Plt Count 318 (150-375) k/mm3 Lymph # (Auto) 1.91 (0.9-3.2) K/mm3 [place] # (Auto) 0.6 (0.1-0.6) K/mm3 Eos # (Auto) 0.2 (0-0.3) K/mm3 Baso # (Auto) 0.1 (0.0-0.1) K/mm3 Comprehensive Metabolic Panel 11/23/24 Range/Units 16:16 Sodium 141 (137-145) mmol/L Potassium 3.6 (3.4-5.0) mmol/L Chloride 103 (98-107) mmol/L Carbon Dioxide 21 L (22-30) mmol/L BUN 36 H (7-17) mg/dL Creatinine 1.50 H (0.7-1.0) mg/dL Glucose 126 H (65-110) mg/dL Calcium 9.0 (8.4-10.2) mg/dL AST 18 (14-36) U/L ALT 13 (6-35) U/L Alkaline Phosphatase 79 (38-126) U/L Total Protein 7.0 (6.3-8.2) g/dL Albumin 4.0 (3.5-5.1) g/dL Intake and Output 11/23/24 11/24/24 11/24/24 23:59 07:59 15:59 Intake Total 440 300 120 Output Total 500 1000 Balance -60 -700 120 Intake: Oral 440 300 120 Output: Urine 1000 Catheter Urine 500 External/Condom 500 Other: Number of Bowel Movements Today 1 Patient Weight 11/24/24 23:59 Weight 100.2 kg
[2024-11-24 16:26] LABS: Basophils Percent Auto 0.5 % (0.2-1.2); Eosinophils Absolute Auto 0.2 K/mm3 (0-0.3); Eosinophils Percent Auto 2.9 % (0-4.4); Hematocrit 31.1 % (37.0-47.0); Hemoglobin 9.6 g/dL (12.0-15.0); Immature Granulocyte Absolute 0.16 K/mm3 (0.00-0.031); Lymphocytes Percent Auto 23.7 % (18.3-44.2); Mean Corpuscular HGB Conc 30.9 g/dl (32-36); Mean Corpuscular Hemoglobin 30.8 pg (26-34); Mean Corpuscular Volume 99.7 fl (80-100); Mean Platelet Volume 10.6 fl (7.4-10.4); Monocytes Absolute Auto 0.6 K/mm3 (0.1-0.6); Monocytes Percent Auto 7.6 % (2.6-8.5); Neutrophils Absolute Auto 5.1 K/mm3 (1.3-6.7); Neutrophils Percent Auto 63.3 % (45.5-73.1); Platelet Count Result 296 k/mm3 (150-375); Red Blood Count 3.12 M/mm3 (4.2-5.4); Red Cell Distribution Width 15.6 % (11.5-14.5)
[2024-11-24 16:46] LABS: Alanine Aminotransferase 12 U/L (6-35); Albumin Level 4.1 g/dL (3.5-5.1); Alkaline Phosphatase 77 U/L (38-126); Anion Gap 15 mmol/L (4-12); Aspartate Amino Transferase 17 U/L (14-36); Bilirubin,Total 0.3 mg/dL (0.2-1.3); Blood Urea Nitrogen 42 mg/dL (7-17); Calcium 9.1 mg/dL (8.4-10.2); Carbon Dioxide 24 mmol/L (22-30); Chloride 101 mmol/L (98-107); Estimated CRCL calculation 31 ml/min; Estimated Glomerular Filt Rate 30; Glucose 119 mg/dL (65-110); Potassium 3.4 mmol/L (3.4-5.0); Sodium 140 mmol/L (137-145)
[2024-11-24] MEDS: TROSPIUM 20 MG 20 EACH PO (17:37)
[2024-11-24] MEDS: SENNA/DOCUSATE SODIUM TABLET 1 TAB PO (20:07)
[2024-11-25] VITALS (10 sets, daily range): BP systolic 120–130; BP diastolic 45–67; PULSE 62–77; RESP 16; TEMP 36–36.1; O2SAT 93–97
[2024-11-25] MEDS: IPRATROPIUM 0.5 MG/ALBUTEROL SULFATE 2.5 MG AMPUL.NEB 3 ML INHALATION ×2 (02:22→08:09)
[2024-11-25] MEDS: guaiFENesin/DEXTROMETHORPHAN 10 ML UDC PO (04:21)
[2024-11-25] MEDS: LEVOTHYROXINE SODIUM 112 MCG, LEVOTHYROXINE SODIUM 25 MCG 137 MCG PO (04:21)
--- NOTE | 2024-11-25 07:20 | PM.IMPN ---
Progress Note: A&P Assessment and Plan (1) Essential (primary) hypertension: Code(s): I10 - Essential (primary) hypertension Status: Acute Assessment and Plan: -continue home medication Olmesartan 40 mg p.o. daily (2) CHF (congestive heart failure): Code(s): I50.9 - Heart failure, unspecified Status: Acute Assessment and Plan: -last echocardiogram 09/04/2024 reveals: EF 65-70%, mild increase left ventricular wall thickness, grade 1 diastolic dysfunction, BNP 2140, trop neg -continue telemetry monitoring -echocardiogram pending for today -consult cardiology -awaiting recommendations -daily weights -IV Lasix furosemide 20 mg IV push q.12 hours -strict monitoring I&O (3) FREIDA (obstructive sleep apnea): Code(s): G47.33 - Obstructive sleep apnea (adult) (pediatric) Status: Acute Assessment and Plan: chronic - home CPAP auto titrate (4) Left hemiparesis: Code(s): G81.94 - Hemiplegia, unspecified affecting left nondominant side Status: Acute Assessment and Plan: Chronic -left side weakness p/ot ordered- as pt and want to go home now instead of [facility] (5) Morbid obesity with BMI of 50.0-59.9, adult: Code(s): E66.01 - Morbid (severe) obesity due to excess calories; Z68.43 - Body mass index [BMI] 50.0-59.9, adult Status: Acute Assessment and Plan: -heart healthy diet Plan Continue home medications: VTE Prophylaxis: SCDs DIET: heart Healthy Anticipated hospital stay: >2 days Code Status: DNR Subjective Date/time seen: 11/25/24 07:20 Interval history: Cough, ongoing weakness Patient is a 79-year-old female with a PMHx: of hemorrhagic stroke in 2010 with residual left-sided weakness, OA, morbid obesity, FREIDA, hyperlipidemia, essential HTN GERD presented to the ER from a rehabilitation center due to noise weakness and recent history of multiple falls. Patient admits history of left hemiplegia from prior CVA. Patient reports that she has been treated with antibiotics and steroids due to ongoing cough for the past 2 weeks. Of note- pt was discharged from this facility on 09/05/24 for weakness, cristóbal knee pain. 11/24 was called topt room and was upset as no updates were provided. Updated on pt's condition and plan. Pt's wants cardiology to see pt and manage CHF and optimize treatment. He is not very pleased with [facility] and wants pt to go home - he has hospital bed and trying to make an arrangements to have safe environment for her at home. Pt reports uneventful night. No chest pain. Echo is scheduled for today. 11/25: Cardiology stopped IV lasix due to increased renal function. eCHO 11/24 - EF 65-70% SIMILAR TO 09/09 echo. Review of Systems Review of Systems: All systems reviewed & are unremarkable except as noted in HPI and below Exam Narrative: GENERAL: Resting in bed Well-appearing, well-nourished, and in no acute distress. HEAD: Normocephalic, atraumatic. EYES: PERRLA and EOMI. ENT: Nares clear, no rhinorrhea or epistaxis. Mucous membranes moist. NECK: Supple. CHEST: Clear to auscultation. No respiratory distress. HEART: Regular rate and rhythm. No murmur heard. Normal peripheral pulses. ABDOMEN: Soft, nontender, nondistended, normal active bowel sounds. EXTREMITIES: Normal range of motion. No edema. SKIN: Warm, dry, no rash. NEURO: No focal deficits. Alert and oriented x3. PSYCH: Normal mood and affect. Objective Data Vital Signs Vital Signs: Vital Signs - 24 hr 11/24/24 08:00 11/24/24 08:00 11/24/24 08:57 Temperature 97.5 F L Pulse Rate 85 63 79 Respiratory Rate 18 20 Blood Pressure 107/44 L Pulse Oximetry 93 93 Oxygen Delivery Room Air Oxygen Flow Rate Fraction of Inspired Oxygen 11/24/24 08:57 11/24/24 09:07 11/24/24 09:22 Temperature Pulse Rate 79 78 Respiratory Rate 20 20 Blood Pressure Pulse Oximetry Oxygen Delivery Room Air Oxygen Flow Rate Fraction of Inspired Oxygen 11/24/24 10:30 11/24/24 10:35 11/24/24 11:44 Temperature Pulse Rate 86 Respiratory Rate Blood Pressure Pulse Oximetry 94 Oxygen Delivery Room Air Room Air Oxygen Flow Rate Fraction of Inspired Oxygen 11/24/24 12:00 11/24/24 12:00 11/24/24 13:42 Temperature 97.2 F L Pulse Rate 66 70 Respiratory Rate 18 Blood Pressure 93/73 L Pulse Oximetry 93 91 Oxygen Delivery Room Air Oxygen Flow Rate Fraction of Inspired Oxygen 21 11/24/24 13:42 11/24/24 13:51 11/24/24 16:00 Temperature 97.0 F L Pulse Rate 65 68 70 Respiratory Rate 20 20 19 Blood Pressure 107/44 L Pulse Oximetry 91 Oxygen Delivery Oxygen Flow Rate Fraction of Inspired Oxygen 11/24/24 16:00 11/24/24 20:00 11/24/24 20:00 Temperature Pulse Rate 71 73 Respiratory Rate Blood Pressure Pulse Oximetry Oxygen Delivery Room Air Oxygen Flow Rate Fraction of Inspired Oxygen 11/24/24 20:16 11/24/24 20:16 11/24/24 20:22 Temperature Pulse Rate 68 70 Respiratory Rate 16 16 Blood Pressure Pulse Oximetry 91 Oxygen Delivery Oxygen Flow Rate 1 Fraction of Inspired Oxygen 11/24/24 22:39 11/25/24 00:00 11/25/24 02:23 Temperature 97.0 F L Pulse Rate 72 73 74 Respiratory Rate 16 16 Blood Pressure 126/46 L Pulse Oximetry 93 Oxygen Delivery Oxygen Flow Rate Fraction of Inspired Oxygen 11/25/24 02:37 11/25/24 04:00 Temperature Pulse Rate 69 68 Respiratory Rate 16 Blood Pressure Pulse Oximetry Oxygen Delivery Oxygen Flow Rate Fraction of Inspired Oxygen Intake/Output Intake/Output: Intake & Output 11/22/24 11/24/24 11/24/24 11/25/24 23:59 00:59 23:59 23:59 Intake Total 360 1220 1260 Output Total 1450 1700 1510 [facility] -[id number] -480 -250 Meds/Results Medications: Active Medications Generic Name Dose Route Start Last Admin Trade Name Freq PRN Reason Stop Dose Admin Acetaminophen 650 mg 11/22/24 16:04 Acetaminophen 325 Mg Tablet PO Q4H PRN Mild Pain (1-3) Or Fever Albuterol/Ipratropium 3 ml 11/22/24 08:00 11/25/24 02:22 Ipratropium 0.5 Mg/Albuterol Sulfate 2.5 Mg Ampul.Neb 3 Ml INHALATION 3 ml Q6HRT [facility] Administration Benzonatate 200 mg 11/25/24 09:00 Benzonatate 100 Mg Capsule PO TID SAMI Bupropion HCl 150 mg 11/23/24 13:35 11/24/24 10:42 Bupropion Hcl Xl (24 Hr) 150 Mg Tabcr PO 150 mg QAM SAMI Administration Ergocalciferol 50,000 units 11/24/24 09:00 11/24/24 10:43 Ergocalciferol 50,000 Units Capsule PO 50,000 units Mo@0900 SAMI Administration Folic Acid 1 mg 11/23/24 09:00 11/24/24 10:37 Folic Acid 1 Mg Tablet PO 1 mg DAILY SAMI Administration Furosemide 20 mg 11/22/24 09:00 11/24/24 20:06 Furosemide Inj 40 Mg/4 Ml Vial IV PUSH 20 mg Q12HR SAMI Administration Gemfibrozil 600 mg 11/22/24 17:00 11/24/24 17:36 Gemfibrozil 600 Mg Tablet PO 600 mg BID SAMI Administration Guaifenesin/Dextromethorphan 10 ml 11/25/24 03:58 11/25/24 04:21 Guaifenesin/Dextromethorphan 10 Ml Udc PO 10 ml Q4H PRN Administration Cough Ibuprofen 200 mg 11/22/24 17:00 11/24/24 17:35 Ibuprofen 200 Mg Tablet PO 200 mg TID SAMI Administration Levetiracetam 500 mg 11/23/24 09:00 11/24/24 10:34 Levetiracetam 500 Mg Tablet PO 500 mg DAILY SAMI Administration Levothyroxine Sodium 112 mcg/ 137 mcg 11/23/24 06:30 11/25/24 04:21 Levothyroxine Sodium 25 mcg PO 137 mcg DAILY@0630 SAMI Administration Metoprolol Tartrate 50 mg 11/22/24 21:00 11/24/24 20:07 Metoprolol Tartrate 50 Mg Tab PO 50 mg Q12HR SAMI Administration * Home Med * 20 mg 11/22/24 17:00 11/24/24 17:37 Trospium 20 Mg PO 12/22/24 16:59 20 mg Tablet BID SAMI Administration Olmesartan 40 mg 11/23/24 09:00 11/24/24 10:35 Olmesartan Medoxomil 20 Mg Tablet PO 40 mg DAILY SAMI Administration Ondansetron HCl 4 mg 11/22/24 03:03 Ondansetron Inj 4 Mg/2 Ml Vial IV PUSH Q4H PRN Nausea Pantoprazole Sodium 40 mg 11/23/24 09:00 11/24/24 10:34 Pantoprazole 40 Mg Tablet PO 40 mg QAM SAMI Administration Pravastatin Sodium 40 mg 11/23/24 09:00 11/24/24 10:34 Pravastatin Sodium 20 Mg Tablet PO 40 mg DAILY SAMI Administration Senna/Docusate Sodium 1 tab 11/22/24 21:00 11/24/24 20:07 Senna/Docusate Sodium Tablet PO 1 tab HS SAMI Administration Sertraline HCl 150 mg 11/23/24 09:00 11/24/24 10:34 Sertraline Hcl 50 Mg Tablet PO 150 mg DAILY SAMI Administration Sitagliptin Phosphate 100 mg 11/23/24 09:00 11/24/24 10:35 Sitagliptin Phosphate 100 Mg Tablet PO 100 mg DAILY SAMI Administration Thiamine HCl 100 mg 11/23/24 09:00 11/24/24 10:37 Thiamine Hcl 100 Mg Tablet PO 100 mg DAILY SAMI Administration Radiology Results: ITS Impressions Chest X-Ray 11/22/24 06:15 IMPRESSION: 1. Cardiomegaly. Chest CT 11/22/24 06:39 IMPRESSION: 1. Cardiomegaly. 2. Gallbladder distention, which may be secondary to fasting. Labs Labs: Laboratory Results - last 24 hr 11/24/24 16:16 WBC 8.0 RBC 3.12 L Hgb 9.6 L Hct 31.1 L MCV 99.7 MCH 30.8 MCHC 30.9 L RDW 15.6 H Plt Count 296 MPV 10.6 H Immature Gran % (Auto) 2.0 H Neut % (Auto) 63.3 Lymph % (Auto) 23.7 [place] % (Auto) 7.6 Eos % (Auto) 2.9 Baso % (Auto) 0.5 Lymph # (Auto) 1.90 [place] # (Auto) 0.6 Eos # (Auto) 0.2 Baso # (Auto) 0.0 Abs Immat Gran (auto) 0.16 H Absolute Neuts (auto) 5.1 Absolute Nucleated RBC 0.000 Nucleated RBC % 0.0 Sodium 140 Potassium 3.4 Chloride 101 Carbon Dioxide 24 Anion Gap 15 H BUN 42 H Creatinine 1.64 H Estim Creat Clear Calc 31 Estimated GFR 30 L Glucose 119 H Calcium 9.1 Total Bilirubin 0.3 AST 17 ALT 12 Alkaline Phosphatase 77 Total Protein 7.0 Albumin 4.1 Quality VTE Prophylaxis VTE prophylaxis: pharmacologic ordered
[2024-11-25 07:30] LABS: Basophils Percent Auto 0.6 % (0.2-1.2); Eosinophils Absolute Auto 0.3 K/mm3 (0-0.3); Eosinophils Percent Auto 4.1 % (0-4.4); Hematocrit 31.7 % (37.0-47.0); Hemoglobin 10.1 g/dL (12.0-15.0); Immature Granulocyte Absolute 0.18 K/mm3 (0.00-0.031); Immature Granulocyte Percent A 2.5 % (0-0.5); Lymphocytes Percent Auto 26.6 % (18.3-44.2); Mean Corpuscular HGB Conc 31.9 g/dl (32-36); Mean Corpuscular Hemoglobin 31.4 pg (26-34); Mean Corpuscular Volume 98.4 fl (80-100); Mean Platelet Volume 10.3 fl (7.4-10.4); Monocytes Absolute Auto 0.6 K/mm3 (0.1-0.6); Monocytes Percent Auto 7.7 % (2.6-8.5); Neutrophils Absolute Auto 4.2 K/mm3 (1.3-6.7); Neutrophils Percent Auto 58.5 % (45.5-73.1); Platelet Count Result 261 k/mm3 (150-375); Red Blood Count 3.22 M/mm3 (4.2-5.4); Red Cell Distribution Width 15.2 % (11.5-14.5); White Blood Count 7.2 K/mm3 (4.5-10.0)
[2024-11-25 07:41] LABS: Alanine Aminotransferase 12 U/L (6-35); Alkaline Phosphatase 76 U/L (38-126); Anion Gap 14 mmol/L (4-12); Aspartate Amino Transferase 20 U/L (14-36); Bilirubin,Total 0.4 mg/dL (0.2-1.3); Blood Urea Nitrogen 40 mg/dL (7-17); Calcium 9.3 mg/dL (8.4-10.2); Carbon Dioxide 26 mmol/L (22-30); Chloride 101 mmol/L (98-107); Estimated CRCL calculation 35 ml/min; Estimated Glomerular Filt Rate 36; Glucose 116 mg/dL (65-110); Potassium 3.5 mmol/L (3.4-5.0); Sodium 141 mmol/L (137-145)
[2024-11-25] MEDS: levETIRAcetam 500 MG TABLET PO (08:45)
[2024-11-25] MEDS: PRAVASTATIN SODIUM 20 MG TABLET 40 MG PO (08:45)
[2024-11-25] MEDS: IBUPROFEN 200 MG TABLET PO ×2 (08:45→12:38)
[2024-11-25] MEDS: OLMESARTAN MEDOXOMIL 20 MG TABLET 40 MG PO (08:45)
[2024-11-25] MEDS: buPROPion HCL XL (24 HR) 150 MG TABCR PO (08:46)
[2024-11-25] MEDS: FOLIC ACID 1 MG TABLET PO (08:46)
[2024-11-25] MEDS: gemfibroziL 600 MG TABLET PO (08:46)
[2024-11-25] MEDS: BENZONATATE 100 MG CAPSULE 200 MG PO ×2 (08:46→12:38)
[2024-11-25] MEDS: PANTOPRAZOLE 40 MG TABLET PO (08:46)
[2024-11-25] MEDS: THIAMINE HCL 100 MG TABLET PO (08:46)
[2024-11-25] MEDS: SITagliptin PHOSPHATE 100 MG TABLET PO (08:46)
[2024-11-25] MEDS: SERTRALINE HCL 50 MG TABLET 150 MG PO (08:46)
[2024-11-25] MEDS: METOPROLOL TARTRATE 50 MG TAB PO (08:46)
[2024-11-25] MEDS: TROSPIUM 20 MG 20 EACH PO (08:50)
[2024-11-25] MEDS: FUROSEMIDE INJ 40 MG/4 ML VIAL 20 MG IV PUSH (08:54)
--- NOTE | 2024-11-25 11:52 | PM.DS ---
DS: Admitting Diagnosis Discharge Date 11/25/2024 Admitting Diagnosis Weakness, acute on chronic congestive heart failure DS: Discharge Diagnosis Discharge Diagnosis (1) Essential (primary) hypertension: Code(s): I10 - Essential (primary) hypertension Status: Acute Assessment and Plan: -continue home medication Olmesartan 40 mg p.o. daily (2) CHF (congestive heart failure): Code(s): I50.9 - Heart failure, unspecified Status: Acute Assessment and Plan: -last echocardiogram 09/04/2024 reveals: EF 65-70%, mild increase left ventricular wall thickness, grade 1 diastolic dysfunction, BNP 2140, trop neg -continue telemetry monitoring -echocardiogram pending for today -consulted cardiology -noted no sign of congestive heart failure exacerbation, echo noted improvement 65-70% -daily weights -IV Lasix furosemide 20 mg IV push q.12 hours -strict monitoring I&O (3) FREIDA (obstructive sleep apnea): Code(s): G47.33 - Obstructive sleep apnea (adult) (pediatric) Status: Acute Assessment and Plan: chronic - home CPAP auto titrate (4) Left hemiparesis: Code(s): G81.94 - Hemiplegia, unspecified affecting left nondominant side Status: Acute Assessment and Plan: Chronic -left side weakness pt/ot ordered- as pt and want to go home now instead of [facility] -however patient does need skilled therapy due to her weakness, will send to [facility] in SNF bed (5) Morbid obesity with BMI of 50.0-59.9, adult: Code(s): E66.01 - Morbid (severe) obesity due to excess calories; Z68.43 - Body mass index [BMI] 50.0-59.9, adult Status: Acute Assessment and Plan: -heart healthy diet Plan Continue home medications: VTE Prophylaxis: SCDs DIET: heart Healthy Discharge to [facility] inn skilled bed for continued PT OT for strengthening Code Status: DNR DS: Summary Hospital Course Reason for hospitalization: Weakness, acute on chronic congestive heart failure Hospital Course: Patient is a 79-year-old female with a past medical history of hemorrhagic stroke in 2010 with residual left-sided weakness, OA, morbid obesity, FREIDA, hyperlipidemia, essential HTN GERD presented to the ER from a rehabilitation center due to noise weakness and recent history of multiple falls. Information is being provided by patient and spouse who is by the bedside. Patient admits history of left hemiplegia from prior CVA, she states she has been having trouble keeping her body upright and has noticed that she leans more to the left. Patient reported that she has been treated with Cefdinir and Prednisone dose pack due to ongoing cough for the past 2 weeks after having influenza A. Emergency department workup revealed anion gap 14, BUN done, GFR 57, BNP 2140, viral pcr negative, chest x-ray noted cardiomegaly, CT chest without contrast noted cardiomegaly, gallbladder distension which may be secondary to fasting. Patient continued with IV lasix and PT/OT did eval the patient. Cardiology was consulted. last echocardiogram 09/04/2024 reveals: EF 65-70%, mild increase left ventricular wall thickness, grade 1 diastolic dysfunction, repeat ECHO 11/24/24 noted EF of 65-70%. Even with initial BNP 2140 and trop neg, cardiology did not believe this was a CHF evaluation. They stopped IV Lasix. Patient has remained afebrile, vitals stable. Labs stable. Patient this a.m. did again work with physical therapy, per was at bedside. was helping to take this patient home so he can care for her there, however patient has declined, in her strength and ability to ambulate. After discussion with PT/OT, has been, and care coordination, it was agreeable the patient will be discharged today to [facility] however in a half-way bed. Patient will continue with PT OT, this and hopes for strengthening so she can return home to her . Answered all of her 's questions to satisfaction they are all agreeable to this plan. Patient will be discharged to [facility] half-way bed today. Time Spent with Patient Time attestation: Total time spent providing and/or coordinating discharge services: Exam Narrative: GENERAL: Resting in bed Well-appearing, well-nourished, and in no acute distress. HEAD: Normocephalic, atraumatic. EYES: PERRLA and EOMI. ENT: Nares clear, no rhinorrhea or epistaxis. Mucous membranes moist. NECK: Supple. CHEST: Clear to auscultation. No respiratory distress. HEART: Regular rate and rhythm. No murmur heard. Normal peripheral pulses. ABDOMEN: Soft, nontender, nondistended, normal active bowel sounds. EXTREMITIES: Normal range of motion. No edema. SKIN: Warm, dry, no rash. NEURO: No focal deficits. Alert and oriented x3. PSYCH: Normal mood and affect. DS: Data Data Completed and Pending Labs on day of discharge: Labs from last 24 hours 11/25/24 11/24/24 07:22 16:16 WBC 7.2 8.0 RBC 3.22 L 3.12 L Hgb 10.1 L 9.6 L Hct 31.7 L 31.1 L MCV 98.4 99.7 MCH 31.4 30.8 MCHC 31.9 L 30.9 L RDW 15.2 H 15.6 H Plt Count 261 296 MPV 10.3 10.6 H Immature Gran % (Auto) 2.5 H 2.0 H Neut % (Auto) 58.5 63.3 Lymph % (Auto) 26.6 23.7 Bibb % (Auto) 7.7 7.6 Eos % (Auto) 4.1 2.9 Baso % (Auto) 0.6 0.5 Lymph # (Auto) 1.90 1.90 Bibb # (Auto) 0.6 0.6 Eos # (Auto) 0.3 0.2 Baso # (Auto) 0.0 0.0 Abs Immat Gran (auto) 0.18 H 0.16 H Absolute Neuts (auto) 4.2 5.1 Absolute Nucleated RBC 0.000 0.000 Nucleated RBC % 0.0 0.0 Sodium 141 140 Potassium 3.5 3.4 Chloride 101 101 Carbon Dioxide 26 24 Anion Gap 14 H 15 H BUN 40 H 42 H Creatinine 1.41 H 1.64 H Estim Creat Clear Calc 35 31 Estimated GFR 36 L 30 L Glucose 116 H 119 H Calcium 9.3 9.1 Total Bilirubin 0.4 0.3 AST 20 17 ALT 12 12 Alkaline Phosphatase 76 77 Total Protein 7.0 7.0 Albumin 4.0 4.1 Imaging Radiologist's impression: ECHO 11/24/24 Summary 1. Complete two-dimensional, color flow and Doppler transthoracic echocardiogram is performed. 2. Left ventricular chamber dimension is normal. 3. Left ventricular systolic function is normal, estimated at 65-70%. 4. There is moderate concentric increased left ventricular wall thickness. 5. The left ventricular diastolic function is grade I diastolic dysfunction. 6. E/e' 15 is elevated. 7. Left atrial chamber dimension is mildly enlarged. 8. There is moderate aortic valve sclerosis. 9. There is mild aortic valve stenosis with a peak velocity of 185 cm/s, mean gradient of 6 mmHg, and aortic valve area of 2.1 cm2. 10. There is mild aortic valve regurgitation. 11. The mitral valve has moderately calcified annulus CT Chest 11/22/24 FINDINGS: There is volume loss of left lung. The lungs demonstrate mild atelectasis. There is a 4 mm nodule in right lower lobe, likely benign. No pleural effusion. Cardiomegaly is noted. No pericardial effusion. Aortic ectasia is noted measuring 4.4 cm in ascending aorta and 4.2 cm in descending aorta. The gallbladder is distended, which may be secondary to fasting. There is a filter in the inferior vena cava. There is severe cervical and thoracic spondylosis. IMPRESSION: 1. Cardiomegaly. 2. Gallbladder distention, which may be secondary to fasting. CXR - 1 view 11/22/24 IMPRESSION: 1. Cardiomegaly. Discharge Plan Discharge Attending physician on discharge: Vianey Wong Consulting providers: Sisi Ayala Discharging Clinician: Vianey Wong Anticipated Discharge Date/Time: 11/25/24 11:45 Patient Disposition: SNF Activity: may shower and as tolerated Diet: as tolerated Discharge Instructions: PT/OT evaluate and treat. Continue medications as ordered, continue all treatments, activities, and dietary restrictions as prior. Fall precautions. Follow up with PCP in one week, contact PCP on patient arrival to facility. Follow up with [employer] Advisory Team Watch Officer in 2 weeks for continuation of care. Patient Language: Croatian Stand Alone Forms: General Discharge Information, Fpc Discharge Follow-up/Referrals: Preston Goetz DO [Primary Care Provider] - Discharge Medications: Continued thiamine HCl (vitamin B1) 100 mg tablet 100 mg PO DAILY levetiracetam 500 mg tablet 500 mg PO DAILY fexofenadine [Yuly Allergy] 180 mg tablet 180 mg PO DAILY mecobalamin (vitamin B12) 5,000 mcg tablet,disintegrating 5,000 mcg PO 3XW Patient Comments: Januvia 100 mg tablet 100 mg PO DAILY Bydureon BCise 2 mg/0.85 mL auto-injector 2 mg SUB-Q WEEKLY Patient Comments: TAKES ON SATURDAYS bupropion HCl 75 mg tablet 150 mg PO DAILY sertraline 100 mg tablet 150 mg PO DAILY trospium 20 mg tablet 20 mg PO BID ibuprofen [Advil] 200 mg tablet 200 mg PO TID ergocalciferol (vitamin D2) 1,250 mcg (50,000 unit) capsule 5,000 mcg PO WEEKLY Patient Comments: TAKES ON MONDAYS acetaminophen 325 mg Tablet 650 mg PO Q4H PRN (Reason: Mild Pain (1-3) Or Fever) Qty: 2 0RF polyethylene glycol 3350 [Miralax] 17 gram Powder In Packet 17 g PO QAM Qty: 2 0RF sennosides-docusate sodium [Senokot-S] 8.6-50 mg Tablet 1 tab PO HS Qty: 2 0RF Chloraseptic Throat [place] 1.4 % aerosol,spray 2 spray mucous membrane PRN 1st Medx-Patch With Lidocaine 4-20-0.025-5 % adhesive patch,medicated 1 patch topical DAILY Rx Instructions: TO BILAT KNEES, REMOVE EVERY PM pravastatin 20 mg tablet 20 mg PO DAILY pravastatin 40 mg tablet 40 mg PO DAILY Robitussin Cough-Sore Throat 325-10 mg/10 mL liquid 20 ml PO Q4H PRN (Reason: cold symptoms) oxycodone-acetaminophen 5-325 mg Tablet 1 tablet PO Q4H PRN (Reason: Pain Rated 7-10) Qty: 30 0RF Rx Instructions: as prior to arrival. ferrous sulfate 325 mg (65 mg iron) tablet 325 mg PO BID Qty: 180 1RF gemfibrozil 600 mg tablet 600 mg PO BID Qty: 180 3RF levothyroxine 137 mcg tablet 137 mcg PO DAILY Qty: 90 3RF metoprolol tartrate 50 mg tablet 50 mg PO Q12H Qty: 180 3RF omeprazole 20 mg capsule,delayed release(DR/EC) 20 mg PO DAILY Qty: 90 3RF olmesartan 40 mg tablet 40 mg PO DAILY Qty: 90 3RF metformin 500 mg tablet 500 mg PO BID Qty: 180 3RF folic acid 1 mg tablet 1 mg PO DAILY Qty: 90 3RF Discontinued methylprednisolone 4 mg tablets,dose pack 4 mg PO ACHS Rx Instructions: STOP ON 11/26/24 cefdinir 300 mg capsule 300 mg PO Q12H Qty: 20 0RF Patient Comments: STOP ON 11/27/24 Date of admission: 11/23/24 10:33 Primary Care Provider: Preston Goetz Admitting Provider: Keny Hahn Attending physician on admission: Keny Hahn Condition: Stable Quality VTE Prophylaxis VTE prophylaxis: pharmacologic ordered Hospitalist MIPS Heart Failure (Exclusion) Patient has history of Heart Transplant or Left Ventricular Assistive Device?: No IF YES, STOP HERE Heart Failure (Qualifier) Patient has current or prior documentation of LVEF less than or equal to 40%, or mod/servere depressed LVSF?: No IF NO, STOP HERE
[2024-11-25 12:46] LABS: SARS-CoV-2 RNA PCR Negative (Negative)
== END 2024-11-25 14:03 | DRG 291 ==
LOC: ANHED 11-22 03:04 → ANH3MED 11-22 03:28
PROVIDERS: Nurse Practitioner; Admitting Provider Internal Medicine; Emergency Provider Emergency Medicine; PCP Internal Medicine; Visit Provider Nurse Practitioner Family
DX: I11.0 Hypertensive heart disease with heart failure (principal); I50.31 Acute diastolic (congestive) heart failure; I69.354 Hemiplegia and hemiparesis following cerebral infarction affecting left non-dominant side; E03.9 Hypothyroidism, unspecified; G47.33 Obstructive sleep apnea (adult) (pediatric); E78.5 Hyperlipidemia, unspecified; E11.9 Type 2 diabetes mellitus without complications; M19.90 Unspecified osteoarthritis, unspecified site; Z90.710 Acquired absence of both cervix and uterus; E66.01 Morbid (severe) obesity due to excess calories; Z68.34 Body mass index [BMI] 34.0-34.9, adult
CPT/HCPCS: 36415; 36600; 71045; 71250; 80053; 81001; 82805; 83605; 83690; 83735; 83880; 84484; 85018; 85025; 85610; 85730; 87086; 87635; 87637; 93005; 93306; 94640; 96374; 96375; 97110; 97161; 97166; 97530; 99285; A9270; G0378; J1940